=== PATIENT | female | born 1965 | race Caucasian/White ===

== ENCOUNTER 2023-01-18 05:52 | Day surgery (SDC) | payer BC ==
[2023-01-18 06:37] VITALS: RESP 16
[2023-01-18] MEDS ORDERED: Lactated Ringers 1,000 ML IV ONE (06:42)
[2023-01-18] MEDS ORDERED: Lactated Ringers 1,000 ML IV SCH (07:00)
[2023-01-18] MEDS ORDERED: DIPRIVAN 200 MG/20 ML IV ONE (07:51)
[2023-01-18] MEDS ORDERED: Xylocaine-Mpf 2% 5 Ml Vial ONE (07:56)
[2023-01-18] MEDS ORDERED: Versed 2 MG/2 ML Injection ONE (07:59)
--- NOTE | 2023-01-18 08:41 | OP ---
SURGERY DATE/TIME: 01/18/2023 0756 PREOPERATIVE DIAGNOSIS: Screening exam. POSTOPERATIVE DIAGNOSIS: Normal colon. PROCEDURE: Colonoscopy. SURGEON: Dr. Gil. ANESTHESIA: MAC. Medications given by anesthesia department. HISTORY: The patient is a 57-year-old white female presenting now for screening colonoscopy. She reports that were two grandparents with colon cancer in the family. The patient was felt the need to have endoscopic evaluation. She was appraised of the risks of the procedure including the risk of perforation, phlebitis, untoward reaction to medication, bleeding and missed lesions. The patient verbalized her understanding and desired to have the procedure performed. DESCRIPTION OF PROCEDURE: The patient was given the medications by the anesthesia department. She had continuous pulse oximetry, ECG monitoring and intermittent blood pressure monitoring and tidal CO2 monitoring during the examination. She was placed in the left lateral decubitus position. A digital rectal examination was performed and revealed normal anal sphincter tone and no masses. The flexible Olympus pediatric colonoscope was used to intubate the rectum. A view of the colon was developed sequentially to the cecum. Upon insertion and withdrawal, including a retroflex view in the rectum, no mucosal lesions were encountered. The scope was removed from the patient who tolerated the procedure well and was sent back to OP recovery in good condition. The prep was noted to be fair. Fairly large amounts of liquid stool was present.
[2023-01-18 08:54] VITALS: TEMP 98
[2023-01-18 09:14] VITALS: BP 162/83; PULSE 77; O2SAT 98
== END 2023-01-18 09:24 | disposition home or self-care (01) ==
LOC: SDC 05:52 → EDSTATUS 10:24
PROVIDERS: ATTEND Family Medicine
DX: Z12.11 Encounter for screening for malignant neoplasm of colon (principal); E11.9 Type 2 diabetes mellitus without complications
CPT/HCPCS: 82947; J2250; J2704

== ENCOUNTER 2023-02-28 01:49 | Emergency (ER) | payer BC ==
[2023-02-28 01:58] VITALS: TEMP 96
[2023-02-28] MEDS ORDERED: Sodium Chloride 0.9% 1000 ML 1,000 ML IV SCH (02:30)
[2023-02-28] MEDS ORDERED: Sodium Chloride 0.9% 1000 ML 1,000 ML ONE (02:34)
--- NOTE | 2023-02-28 02:42 | ERPHSYRPT ---
- History of Present Illness Historian: patient, family Exam Limitations: no limitations Patient Subjective Stated Complaint: chest tightness/dizziness while at work Triage Nursing Assessment: pt ambulated into ER without diff, nephew is with pt. Pt alert and oriented x4, pleasant and cooperative. 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 Pt's arms were up at shoulder height to perform this task. Pt became a little dizzy/fuzzy vision and then had some chest tightness and shortness of breath. Pt denies any chest pain or sob at this time. Pt denies any dizziness or visual trouble at this time. Lungs clear, heart tones reg, abd soft with active bs x4 quad, nontender. Physician History: pt reports episode of light headedness/ blacking out of vision and then chest tightness. SHe is having a cardio workup now. independent source for Hx was in view of potential altered mental status, but appears clear now no fever, no abd pain, some sobreath. normal neuro exam, visual marti and EOM full PERRL, fundi benign. no rash. Timing/Duration: today Activities at Onset: other Quality: fullness, pressure, tightness Location: substernal Chest Pain Radiation: no radiation Severity of Pain-Max: moderate Severity of Pain-Current: moderate Modifying Factors: Improves With: nothing Associated Symptoms: dizziness Prior Chest Pain/Cardiac Workup: no prior chest pain, recently seen/treated Nitro Today/Relief: 0.4 mg x 1, provided by ED Aspirin Treatment Today: 81 mg x 4, provided by ED Allergies/Adverse Reactions: No Known Drug Allergies Allergy (Verified 02/28/23 02:10) Home Medications: Empagliflozin [Jardiance] 25 mg PO DAILY 01/14/23 [History] Ezetimibe 10 mg [Zetia 10 MG] 1 tab PO DAILY 01/14/23 [History] Glimepiride 2 mg [Amaryl 2 MG] 1 tab PO DAILY 01/14/23 [History] Metformin HCl 500 mg [Glucophage 500 MG] 2 tab PO BID 01/14/23 [History] Potassium Chloride 1 tab PO DAILY 01/14/23 [History] Lisinopril 10 mg [Zestril 10 MG] 1 tab PO DAILY 02/28/23 [History] Hx Tetanus, Diphtheria Vaccination/Date Given: (unknown) Hx Influenza Vaccination/Date Given: No Hx Pneumococcal Vaccination/Date Given: No Immunizations Up to Date: No Travel Risk - International Travel Have you traveled outside of the country in past 3 weeks: No - Coronavirus Screening Are you exhibiting any of the following symptoms?: No Close contact with a COVID-19 positive Pt in past 14-21 Days: No - Vaccine Status Have you recieved a Covid-19 vaccination: Yes Support Manager: Moderna - Vaccination Dates Date of 2cond Vaccination (if applicable): . - Review of Systems Constitutional: No Fever, No Chills Eyes: No Symptoms Ears, Nose, & Throat: No Symptoms Respiratory: No Cough, No Dyspnea Cardiac: Chest Pain, No Edema, No Syncope Abdominal/Gastrointestinal: No Abdominal Pain, No Nausea, No Vomiting, No Diarrhea Genitourinary Symptoms: No Dysuria Musculoskeletal: No Back Pain, No Neck Pain Skin: No Rash Neurological: No Dizziness, No Focal Weakness, No Sensory Changes Psychological: No Symptoms Endocrine: No Symptoms Hematologic/Lymphatic: No Symptoms Immunological/Allergic: No Symptoms All Other Systems: Reviewed and Negative - Past Medical History Pertinent Past Medical History: Yes Neurological History: Peripheral Neuropathy ENT History: No Pertinent History Cardiac History: Angina, Hypertension Respiratory History: No Pertinent History Endocrine Medical History: Diabetes Type II Musculoskeletal History: No Pertinent History GI Medical History: No Pertinent History History: No Pertinent History Psycho-Social History: No Pertinent History Female Reproductive Disorders: No Pertinent History Other Medical History: PATIENT HAS A HX OF COVID IN JUL 2021. FAMILY HX OF BLADDER CANCER AND SIGNIFICANT FAMILY OF COLON CANCER. DIABETIC WOUND R LEG AND R FOOT BEING ACTIVELY TREATED AT [facility]. - Past Surgical History Past Surgical History: Yes Neuro Surgical History: No Pertinent History Cardiac: No Pertinent History Respiratory: No Pertinent History Gastrointestinal: No Pertinent History Genitourinary: No Pertinent History Musculoskeletal: No Pertinent History Female Surgical History: Dilation & Curettage Other Surgical History: 2 colonscopy - Social History Smoking Status: Never smoker Exposure to second hand smoke: No Drug Use: none Patient Lives Alone: Yes - Nursing Vital Signs Nursing Vital Signs: Initial Vital Signs Temperature 96.0 F 02/28/23 01:51 Pulse Rate 76 02/28/23 01:51 Respiratory Rate 14 02/28/23 01:51 Blood Pressure 124/76 02/28/23 01:51 O2 Sat by Pulse Oximetry 100 02/28/23 01:51 Pain Scale Pain Intensity 0 - Physical Exam General Appearance: no apparent distress, alert Eye Exam: PERRL/EOMI, eyes nml inspection Ears, Nose, Throat Exam: normal ENT inspection, moist mucous membranes Neck Exam: normal inspection, non-tender, supple, full range of motion Respiratory Exam: normal breath sounds, lungs clear, No respiratory distress Cardiovascular Exam: regular rate/rhythm, normal heart sounds Gastrointestinal/Abdomen Exam: soft, No tenderness, No mass Pelvic Exam: deferred Rectal Exam: deferred Back Exam: normal inspection, No CVA tenderness, No vertebral tenderness Extremity Exam: normal inspection, normal range of motion Neurologic Exam: alert, oriented x 3, cooperative, normal mood/affect, sensation nml, No motor deficits Skin Exam: normal color, warm, dry SpO2 Interpretation: normal SpO2: 100 O2 Delivery: Room Air - Course Nursing assessment & vital signs reviewed: Yes EKG Interpreted by Me: Sinus Rhythm, NORMAL AXIS, NORMAL INTERVALS, NORMAL QRS, NORMAL ST-T - Radiology Exams Chest X-ray Interpretation: Reviewed by me, Other (calcified granulomata) Ordered Tests: Active Orders 24 hr Category Date Time Status Mba Intern STAT Care 02/28/23 02:31 Active EKG-ER Only STAT Care 02/28/23 02:52 Active IV Insertion STAT Care 02/28/23 02:30 Active Pulse Oximetry (ED) STAT Care 02/28/23 02:30 Active CHEST 1 VIEW (PORTABLE) Stat Exams 02/28/23 02:32 Taken CBC W DIFF Stat Lab 02/28/23 02:02 Completed CK-Creatinine Phosphokinase Stat Lab 02/28/23 02:02 Completed CMP Stat Lab 02/28/23 02:02 Completed D-DIMER QUANTITATIVE Stat Lab 02/28/23 02:02 Completed LIPASE Stat Lab 02/28/23 02:02 Completed Lactic Acid Stat Lab 02/28/23 02:30 Completed NT PRO BNPII Stat Lab 02/28/23 02:02 Completed TROPONIN Q4H Lab 02/28/23 02:02 Completed TROPONIN Q4H Lab 02/28/23 06:45 Ordered TROPONIN Q4H Lab 02/28/23 10:45 Ordered Medication Summary Generic Name Dose Route Start Last Admin Trade Name Freq PRN Reason Stop Dose Admin Sodium Chloride 1,000 mls @ 100 mls/hr 02/28/23 02:30 02/28/23 02:35 Sodium Chloride 0.9% 1000 Ml IV 03/30/23 02:29 100 mls/hr .Q10H RAFAEL Administration Discontinued Medications Generic Name Dose Route Start Last Admin Trade Name Sana PRN Reason Stop Dose Admin Aspirin 324 mg 02/28/23 02:48 02/28/23 02:55 Aspirin 81 Mg Tab.Chew PO 02/28/23 02:49 324 mg STAT ONE Administration Aspirin Confirm 02/28/23 02:54 Aspirin 81 Mg Tab.Chew Administered 02/28/23 02:55 Dose 324 mg .ROUTE .STK-MED ONE Nitroglycerin 0.4 mg 02/28/23 02:48 02/28/23 03:06 Nitroglycerin 0.4 Mg (Ed) 0.4 Mg Tab.Subl SL 02/28/23 02:49 Not Given STAT ONE Lab/Rad Data: Laboratory Result Diagrams 02/28/23 02:02 02/28/23 02:02 Laboratory Results 02/28/23 02/28/23 02/28/23 Range/Units 02:30 02:02 02:02 WBC (4.0-10.5) x10^3/uL RBC (4.1-5.4) x10^6/uL Hgb (12.0-16.0) g/dL Hct (35-47) % MCV (78-100) fL MCH (26-32) pg MCHC (32-36) g/dL RDW (11.5-14.0) % Plt Count (150-450) x10^3/uL MPV (7.5-11.0) fL Gran % (36.0-66.0) % Immature Gran % (Auto) (0.00-0.4) % Nucleat RBC Rel Count (0.00-0.1) % Eos # (Auto) (0-0.5) x10^3/uL Immature Gran # (Auto) (0.00-0.03) x10^3u/L Absolute Lymphs (auto) (1.0-4.6) x10^3/uL Absolute Monos (auto) (0.0-1.3) x10^3/uL Absolute Nucleated RBC (0.00-0.01) x10^3u/L Lymphocytes % (24.0-44.0) % Monocytes % (0.0-12.0) % Eosinophils % (0.00-5.0) % Basophils % (0.0-0.4) % Absolute Granulocytes (1.4-6.9) x10^3/uL Basophils # (0-0.4) x10^3/uL D-Dimer (0.0-0.50) mg/L Sodium (137-145) mmol/L Potassium (3.5-5.1) mmol/L Chloride (98-107) mmol/L Carbon Dioxide (22-30) mmol/L Anion Gap (5-15) MEQ/L BUN (7-17) mg/dL Creatinine (0.52-1.04) mg/dL Estimated GFR ML/MIN Glucose (74-106) mg/dL Lactic Acid 1.9 (0.4-2.0) Calcium (8.4-10.2) mg/dL Total Bilirubin (0.2-1.3) mg/dL AST (14-36) U/L ALT (0-35) U/L Alkaline Phosphatase (38-126) U/L Creatine Kinase (30-135) U/L Troponin I < 0.012 (0.000-0.034) ng/mL NT-Pro-B Natriuret Pep 196 (<300) pg/mL Serum Total Protein (6.3-8.2) g/dL Albumin (3.5-5.0) g/dL Lipase (23-300) U/L 02/28/23 02/28/23 02/28/23 Range/Units 02:02 02:02 02:02 WBC 6.2 (4.0-10.5) x10^3/uL RBC 4.65 (4.1-5.4) x10^6/uL Hgb 13.5 (12.0-16.0) g/dL Hct 40.9 (35-47) % MCV 88.0 (78-100) fL MCH 29.0 (26-32) pg MCHC 33.0 (32-36) g/dL RDW 14.3 H (11.5-14.0) % Plt Count 279 (150-450) x10^3/uL MPV 9.4 (7.5-11.0) fL Gran % 61.4 (36.0-66.0) % Immature Gran % (Auto) 0.3 (0.00-0.4) % Nucleat RBC Rel Count 0.0 (0.00-0.1) % Eos # (Auto) 0.22 (0-0.5) x10^3/uL Immature Gran # (Auto) 0.02 (0.00-0.03) x10^3u/L Absolute Lymphs (auto) 1.70 (1.0-4.6) x10^3/uL Absolute Monos (auto) 0.43 (0.0-1.3) x10^3/uL Absolute Nucleated RBC 0.00 (0.00-0.01) x10^3u/L Lymphocytes % 27.4 (24.0-44.0) % Monocytes % 6.9 (0.0-12.0) % Eosinophils % 3.5 (0.00-5.0) % Basophils % 0.5 (0.0-0.4) % Absolute Granulocytes 3.81 (1.4-6.9) x10^3/uL Basophils # 0.03 (0-0.4) x10^3/uL D-Dimer 1.07 H* (0.0-0.50) mg/L Sodium 139 (137-145) mmol/L Potassium 4.6 (3.5-5.1) mmol/L Chloride 103 (98-107) mmol/L Carbon Dioxide 24 (22-30) mmol/L Anion Gap 16.2 H (5-15) MEQ/L BUN 32 H (7-17) mg/dL Creatinine 1.19 H (0.52-1.04) mg/dL Estimated GFR 49.3 ML/MIN Glucose 84 (74-106) mg/dL Lactic Acid (0.4-2.0) Calcium 9.7 (8.4-10.2) mg/dL Total Bilirubin 0.70 (0.2-1.3) mg/dL AST 33 (14-36) U/L ALT 24 (0-35) U/L Alkaline Phosphatase 69 (38-126) U/L Creatine Kinase 33 (30-135) U/L Troponin I (0.000-0.034) ng/mL NT-Pro-B Natriuret Pep (<300) pg/mL Serum Total Protein 8.6 H (6.3-8.2) g/dL Albumin 4.6 (3.5-5.0) g/dL Lipase 800 H (23-300) U/L - Progress Progress: improved, re-examined Air Movement: good Progress Note: 02/28/23 05:32 discussed with pt and she does not wish to have the CT risk with the kidneys and I agree it is below the GFR normally allowing that. SHe and understand the risk that there still could be a PE undetected but are comfortable with that risk and cardaic rsk including . she is advised that even though symptoms have resolved that she still may have risk for a sudden cardiac or vascular event as we have not ruled these out yet and she needs the furhter workup. including for the elevated lipase although she has no abd pain or vomiting but may have chronic panc inflammation. SHe and choose to followup with her traffic director and PMD as outpt and complete w/u and has the capacity to make that choice. 02/28/23 05:41 02/28/23 05:43 Blood Culture(s) Obtained: No Antibiotics given: No Counseled pt/family regarding: lab results, diagnosis, need for follow-up, rad results Medical Desision Making - Independent Historian Additional History obtained from: Spouse - Diagnostic Testing Diagnostic test were ordered, analyzed, and reviewed by me: Yes Radiological Interpretation: Reviewed by me - Risk of complications The pt has a high risk of morbidity or mortality based on: Decision regarding hospitilization or escalation of hosp level of care - Departure Departure Disposition: Home Clinical Impression: chest pain resolved, Elevated lipase Condition: Good Critical Care Time: No Referrals: ANTHONY WALTON MD [Primary Care Provider] - Follow up/PCP as directed Instructions: Chest Pain (DC), Pancreatitis (DC) Additional Instructions: see your DrBrandi for the pancrease workup and the elevated lipase. continue with your traffic director. ALthough the initial cardiac tests were negative there is still cardiac workup to complete with your traffic director and there may be a risk for other undetected conditions such as a risk for blood clots. there is an indication of the lab of pancrease inflammation even though you have no symptoms. Return meantime if any concerns or symptoms return.
[2023-02-28] MEDS ORDERED: Nitrostat 0.4 MG (ED) SL ONE (02:48)
[2023-02-28] MEDS ORDERED: BABY ASPIRIN 81 MG CHEW PO ONE (02:48)
[2023-02-28] MEDS ORDERED: BABY ASPIRIN 81 MG CHEW ONE (02:54)
[2023-02-28 03:06] LABS: Absolute Neutrophil Ct (ANC) 3.81 x10^3/uL (1.4-6.9); BASOPHIL % 0.5 % (0.0-0.4); Basophil (Absolute #) 0.03 x10^3/uL (0-0.4); Eosinophil % 3.5 % (0.00-5.0); Eosinophil (Absolute #) 0.22 x10^3/uL (0-0.5); Hematocrit 40.9 % (35-47); Hemoglobin 13.5 g/dL (12.0-16.0); IMMATURE GRAN # 0.02 x10^3u/L (0.00-0.03); IMMATURE GRAN % 0.3 % (0.00-0.4); Lymphocytes % 27.4 % (24.0-44.0); Mean Platelet Volume 9.4 fL (7.5-11.0); Monocyte (Absolute #) 0.43 x10^3/uL (0.0-1.3); Monocytes % 6.9 % (0.0-12.0); Neutrophil % 61.4 % (36.0-66.0); Platelet Count 279 x10^3/uL (150-450); Red Blood Count 4.65 x10^6/uL (4.1-5.4); Red Cell Distribution Width 14.3 % (11.5-14.0); White Blood Count 6.2 x10^3/uL (4.0-10.5)
[2023-02-28 04:06] LABS: ALBUMIN 4.6 g/dL (3.5-5.0); ANION GAP 16.2 MEQ/L (5-15); BILIRUBIN,TOTAL 0.7 mg/dL (0.2-1.3); Calcium 9.7 mg/dL (8.4-10.2); Creatinine 1 1.19 mg/dL (0.52-1.04); EST GLOMERULAR FILTRATION RATE 49.3 ML/MIN; Potassium 4.6 mmol/L (3.5-5.1); Total Protein 8.6 g/dL (6.3-8.2)
[2023-02-28 06:05] VITALS: BP 136/83; PULSE 78; RESP 18; O2SAT 97
--- NOTE | 2023-02-28 07:22 | XRAY ---
Indication: Chest pain. Comparison: None Portable chest demonstrates normal heart and lungs. Bony thorax intact with osteopenia and mild degenerative changes.
== END 2023-02-28 06:05 | disposition home or self-care (01) ==
LOC: ED 01:49
DX: R07.9 Chest pain, unspecified (principal); R74.8 Abnormal levels of other serum enzymes; R42 Dizziness and giddiness; I10 Essential (primary) hypertension; E11.42 Type 2 diabetes mellitus with diabetic polyneuropathy; E11.621 Type 2 diabetes mellitus with foot ulcer; L97.519 Non-pressure chronic ulcer of other part of right foot with unspecified severity; Z79.84 Long term (current) use of oral hypoglycemic drugs; Z79.899 Other long term (current) drug therapy; Z86.16 Personal history of COVID-19
CPT/HCPCS: 36000; 36415; 71045; 80053; 82550; 83605; 83690; 83880; 84484; 85025; 85379; 93005; 93041; 94760; 99284; A9270-GY

== ENCOUNTER 2023-04-04 15:12 | Observation (INO) | payer MEDICAID ==
--- NOTE | 2023-04-04 15:42 | ERPHSYRPT ---
- History of Present Illness Time Seen by Provider: 04/04/23 15:21 Historian: patient Exam Limitations: no limitations Physician History: 57-year-old female with history of hypertension, hyperlipidemia, diabetes mellitus presented in the ER with chief complaint of right lower quadrant pain dull aching to sharp mild to moderate intensity, more with palpation and ambulat ion. This has been going on for the last 4 to 5 days with progressive worsening. Denies associated nausea vomiting, urinary complaints. No diarrhea or constipation reported. Patient is concerned about her having acute appendicitis. Denies any swelling/hernia. On exam patient has mild tenderness in the right flank/right lower quadrant. No guarding or rebound tenderness. Negative CVA tenderness. She is offered pain medication which she declined. Will obtain acute abdomen work-up including CT abdomen pelvis. Allergies/Adverse Reactions: No Known Drug Allergies Allergy (Verified 04/04/23 15:29) Home Medications: Empagliflozin [Jardiance] 25 mg PO DAILY 01/14/23 [History] Ezetimibe 10 mg [Zetia 10 MG] 1 tab PO DAILY 01/14/23 [History] Glimepiride 2 mg [Amaryl 2 MG] 1 tab PO DAILY 01/14/23 [History] Metformin HCl 500 mg [Glucophage 500 MG] 2 tab PO BID 01/14/23 [History] Potassium Chloride 1 tab PO DAILY 01/14/23 [History] Lisinopril 10 mg [Zestril 10 MG] 1 tab PO DAILY 02/28/23 [History] Hx Tetanus, Diphtheria Vaccination/Date Given: (unknown) Hx Influenza Vaccination/Date Given: No Hx Pneumococcal Vaccination/Date Given: No Travel Risk - Vaccine Status Have you recieved a Covid-19 vaccination: Yes Pouncing Lathe Operator: Moderna - Vaccination Dates Date of 2cond Vaccination (if applicable): . - Review of Systems Constitutional: No Symptoms Ears, Nose, & Throat: No Symptoms Respiratory: No Symptoms Cardiac: No Symptoms Abdominal/Gastrointestinal: Abdominal Pain Genitourinary Symptoms: No Symptoms Musculoskeletal: No Symptoms Skin: No Symptoms Neurological: No Symptoms Psychological: No Symptoms Hematologic/Lymphatic: No Symptoms - Past Medical History Pertinent Past Medical History: Yes Neurological History: Peripheral Neuropathy ENT History: No Pertinent History Cardiac History: Angina, Hypertension Respiratory History: No Pertinent History Endocrine Medical History: Diabetes Type II Musculoskeletal History: No Pertinent History GI Medical History: No Pertinent History History: No Pertinent History Psycho-Social History: No Pertinent History Female Reproductive Disorders: No Pertinent History Other Medical History: PATIENT HAS A HX OF COVID IN JUL 2021. FAMILY HX OF BLAD RIAZ CANCER AND SIGNIFICANT FAMILY OF COLON CANCER. DIABETIC WOUND R LEG AND R FOOT BEING ACTIVELY TREATED AT [facility]. - Past Surgical History Past Surgical History: Yes Neuro Surgical History: No Pertinent History Cardiac: No Pertinent History Respiratory: No Pertinent History Gastrointestinal: No Pertinent History Genitourinary: No Pertinent History Musculoskeletal: No Pertinent History Female Surgical History: Dilation & Curettage Other Surgical History: 2 colonscopy - Social History Smoking Status: Never smoker Exposure to second hand smoke: No Drug Use: none Patient Lives Alone: Yes - Nursing Vital Signs Nursing Vital Signs: Initial Vital Signs Temperature 97 F 04/04/23 15:12 Pulse Rate 90 04/04/23 15:12 Respiratory Rate 16 04/04/23 15:12 Blood Pressure 105/75 04/04/23 15:12 O2 Sat by Pulse Oximetry 100 04/04/23 15:12 Pain Scale Pain Intensity 2 - Physical Exam General Appearance: no apparent distress, alert Eye Exam: PERRL/EOMI Ears, Nose, Throat Exam: normal ENT inspection Neck Exam: normal inspection, supple, full range of motion Respiratory Exam: normal breath sounds, lungs clear Cardiovascular Exam: regular rate/rhythm, normal heart sounds Gastrointestinal/Abdomen Exam: soft, normal bowel sounds, tenderness (Right lower quadrant/flank), No guarding Back Exam: normal inspection, normal range of motion Extremity Exam: normal range of motion Neurologic Exam: alert, oriented x 3, cooperative, funeral service manager II-XII nml as tested Skin Exam: normal color SpO2 Interpretation: normal SpO2: 96 O2 Delivery: Room Air Ordered Tests: Active Orders 24 hr Category Date Time Status ABDOMEN AND PELVIS W/0 CONTRAS [CT] Stat Exams 04/04/23 15:40 Completed CBC W DIFF Stat Lab 04/04/23 16:15 Completed CMP Stat Lab 04/04/23 16:15 Completed CULTURE,URINE Stat Lab 04/04/23 16:49 Received LIPASE Stat Lab 04/04/23 16:15 Completed UA W/RFX UR CULTURE Stat Lab 04/04/23 16:49 Completed Medication Summary Generic Name Dose Route Start Last Admin Trade Name Sana PRN Reason Stop Dose Admin Sodium Chloride 1,000 mls @ 999 mls/hr 04/04/23 17:49 04/04/23 17:55 Sodium Chloride 0.9% 1000 Ml IV 04/04/23 18:49 999 mls/hr .Q1H1M STA Administration Discontinued Medications Generic Name Dose Route Start Last Admin Trade Name Sana PRN Reason Stop Dose Admin Sodium Chloride Confirm 04/04/23 17:54 Sodium Chloride 0.9% 1000 Ml Administered 04/04/23 17:55 Dose 1,000 mls @ ud .ROUTE .K-MED ONE Lab/Rad Data: Laboratory Result Diagrams 04/04/23 16:15 04/04/23 16:15 Laboratory Results 04/04/23 04/04/23 04/04/23 Range/Units 16:49 16:15 16:15 WBC 5.5 (4.0-10.5) x10^3/uL RBC 4.49 (4.1-5.4) x10^6/uL Hgb 13.5 (12.0-16.0) g/dL Hct 39.2 (35-47) % MCV 87.3 (78-100) fL MCH 30.1 (26-32) pg MCHC 34.4 (32-36) g/dL RDW 13.9 (11.5-14.0) % Plt Count 192 (150-450) x10^3/uL MPV 8.7 (7.5-11.0) fL Gran % 57.4 (36.0-66.0) % Immature Gran % (Auto) 0.4 (0.00-0.4) % Nucleat RBC Rel Count 0.0 (0.00-0.1) % Eos # (Auto) 0.18 (0-0.5) x10^3/uL Immature Gran # (Auto) 0.02 (0.00-0.03) x10^3u/L Absolute Lymphs (auto) 1.71 (1.0-4.6) x10^3/uL Absolute Monos (auto) 0.39 (0.0-1.3) x10^3/uL Absolute Nucleated RBC 0.00 (0.00-0.01) x10^3u/L Lymphocytes % 31.3 (24.0-44.0) % Monocytes % 7.1 (0.0-12.0) % Eosinophils % 3.3 (0.00-5.0) % Basophils % 0.5 (0.0-0.4) % Absolute Granulocytes 3.13 (1.4-6.9) x10^3/uL Basophils # 0.03 (0-0.4) x10^3/uL Sodium 135 L (137-145) mmol/L Potassium 4.4 (3.5-5.1) mmol/L Chloride 102 (98-107) mmol/L Carbon Dioxide 23 (22-30) mmol/L Anion Gap 14.4 (5-15) MEQ/L BUN 19 H (7-17) mg/dL Creatinine 0.83 (0.52-1.04) mg/dL Estimated GFR > 60.0 ML/MIN Glucose 198 H (74-106) mg/dL Calcium 9.3 (8.4-10.2) mg/dL Total Bilirubin 0.60 (0.2-1.3) mg/dL AST 39 H (14-36) U/L ALT 27 (0-35) U/L Alkaline Phosphatase 64 (38-126) U/L Serum Total Protein 7.7 (6.3-8.2) g/dL Albumin 4.2 (3.5-5.0) g/dL Lipase 1531 H (23-300) U/L Urine Color Yellow (Yellow) Urine Appearance Clear (Clear) Urine pH 5.0 (4.6-8.0) Ur Specific [place] >=1.030 A (1.005-1.030) Urine Protein 100 A (Negative) Urine Glucose (UA) >=1000 A (Negative) mg/dL Urine Ketones Negative (Negative) Urine Blood Trace (Negative) Urine Nitrite Negative (Negative) Urine Bilirubin Negative (Negative) Urine Urobilinogen 0.2 (0.2) mg/dL Ur Leukocyte Esterase Negative (Negative) U Hyaline Cast (Auto) NONE SEEN (0-2) /LPF Urine Microscopic RBC 0-2 (0-5) /HPF Urine Microscopic WBC 0-2 (0-5) /HPF Ur Epithelial Cells None Seen (None Seen) /HPF Urine Bacteria None Seen (None Seen) /HPF Urine Culture Reflexed YES (NO) - Progress Progress: unchanged Progress Note: 04/04/23 15:42 57-year-old female with history of hypertension, hyperlipidemia, diabetes mellitus presented in the ER with chief complaint of right lower quadrant pain dull aching to sharp mild to moderate intensity, more with palpation and ambulation. This has been going on for the last 4 to 5 days with progressive worsening. Denies associated nausea vomiting, urinary complaints. No diarrhea or constipation reported. Patient is concerned about her having acute appendicitis. Denies any swelling/hernia. On exam patient has mild tenderness in the right flank/right lower quadrant. No guarding or rebound tenderness. Negative CVA tenderness. She is offered pain medication which she declined. Will obtain acute abdomen work-up including CT abdomen pelvis. Patient has normal white count, fairly unremarkable chemistries except for lipase of 1531. Patient has no obvious tenderness in the right upper quadrant/epigastric area. Patient does have gallstones with no signs of acute cholecystitis on the CT. She is started on fluids and made n.p.o. Discussed with , Reviewed his tory, work-up and agreed with admission. I have discussed the results of work- up with patient and plan of admission which she understand and agrees with it. Will see patient in: hospital (observation) Counseled pt/family regarding: lab results, diagnosis, need for follow-up, rad results Medical Desision Making - Diagnostic Testing Diagnostic test were ordered, analyzed, and reviewed by me: Yes Radiological Interpretation: Reviewed by me - Risk of complications The pt has a high risk of morbidity or mortality based on: Decision regarding hospitilization or escalation of hosp level of care - Departure Departure Disposition: Observation Clinical Impression: Acute pancreatitis Condition: Stable Critical Care Time: No Referrals: [facility] [NON-STAFF PHY W/O PRIVILEGES] - Follow up/PCP as directed
[2023-04-04 16:22] LABS: Absolute Neutrophil Ct (ANC) 3.13 x10^3/uL (1.4-6.9); BASOPHIL % 0.5 % (0.0-0.4); Basophil (Absolute #) 0.03 x10^3/uL (0-0.4); Eosinophil % 3.3 % (0.00-5.0); Eosinophil (Absolute #) 0.18 x10^3/uL (0-0.5); Hematocrit 39.2 % (35-47); Hemoglobin 13.5 g/dL (12.0-16.0); IMMATURE GRAN # 0.02 x10^3u/L (0.00-0.03); IMMATURE GRAN % 0.4 % (0.00-0.4); Lymphocyte (Absolute #) 1.71 x10^3/uL (1.0-4.6); Lymphocytes % 31.3 % (24.0-44.0); Mean Cell Volume 87.3 fL (78-100); Mean Corpuscular Hemoglobin 30.1 pg (26-32); Mean Corpuscular Hgb Concent. 34.4 g/dL (32-36); Mean Platelet Volume 8.7 fL (7.5-11.0); Monocyte (Absolute #) 0.39 x10^3/uL (0.0-1.3); Monocytes % 7.1 % (0.0-12.0); Neutrophil % 57.4 % (36.0-66.0); Platelet Count 192 x10^3/uL (150-450); Red Blood Count 4.49 x10^6/uL (4.1-5.4); Red Cell Distribution Width 13.9 % (11.5-14.0); White Blood Count 5.5 x10^3/uL (4.0-10.5)
--- NOTE | 2023-04-04 16:37 | XRAY ---
Indication: Right lower quadrant pain. Multiple contiguous axial images obtained through the abdomen and pelvis without contrast. Comparison: March 10, 2023 Lung bases remain clear. Heart not enlarged. Stomach is now moderately distended with food/fluid. Noncontrasted stomach and bowel loops appear nonobstructed again with normal appearing appendix. Worsening moderate diffuse scatter colonic fecal debris throughout. Stable tiny gallstones/gravel. Remaining liver, gallbladder, pancreas, spleen, adrenal glands, kidneys, ureters, bladder, and uterus are unremarkable for noncontrast exam. Stable mild aortoiliac calcification without AAA. Osseous structures intact again with minimal generative changes throughout the spine and both hips. Impression: 1. Worsening diffuse fecal stasis. 2. Stable chronic findings including gallstones/gravel, arteriosclerotic disease, and chronic bony findings. 3. Remaining CT abdomen/pelvis without contrast exam continues to be negative.
[2023-04-04 16:45] LABS: ALBUMIN 4.2 g/dL (3.5-5.0); ALKALINE PHOSPHATASE 64 U/L (38-126); ANION GAP 14.4 MEQ/L (5-15); BLOOD UREA NITROGEN 19 mg/dL (7-17); CHLORIDE 102 mmol/L (98-107); Calcium 9.3 mg/dL (8.4-10.2); Carbon Dioxide 23 mmol/L (22-30); Creatinine 1 0.83 mg/dL (0.52-1.04); EST GLOMERULAR FILTRATION RATE > 60.0 ML/MIN; Glucose 198 mg/dL (74-106); LIPASE 1531 U/L (23-300); Potassium 4.4 mmol/L (3.5-5.1); SGOT/AST 39 U/L (14-36); SGPT/ALT 27 U/L (0-35); SODIUM 135 mmol/L (137-145); Total Protein 7.7 g/dL (6.3-8.2)
[2023-04-04 17:06] LABS: Appearance Clear (Clear); Bacteria None Seen /HPF (None Seen); Bilirubin Negative (Negative); Blood Trace (Negative); Epithelial Cells None Seen /HPF (None Seen); Glucose, Urine >=1000 mg/dL (Negative); Hyaline Casts NONE SEEN /LPF (0-2); Ketones Negative (Negative); Leukocyte Esterase Negative (Negative); Nitrite Negative (Negative); Protein,Urine Dip 100 (Negative); RBC 0-2 /HPF (0-5); Specific Gravity >=1.030 (1.005-1.030); Urobilinogen 0.2 mg/dL (0.2); WBC 0-2 /HPF (0-5)
[2023-04-04 17:22] LABS: ADD URINE CULTURE? YES (NO)
[2023-04-04] MEDS ORDERED: Sodium Chloride 0.9% 1000 ML 1,000 ML IV STA (17:49)
[2023-04-04] MEDS ORDERED: Sodium Chloride 0.9% 1000 ML 1,000 ML ONE (17:54)
--- NOTE | 2023-04-04 19:50 | PCM.HP ---
History of Present Illness - Chief Complaint Chief Complaint: Acute pancreatitis Date: 04/04/23 History of Present Illness: is a 57 year old female admitted with abdominal pain. Pain is sharp pain RLQ. Pain at times radiates to back. Pain is worse with moving. Nothing helps the pain. In addition, since September she has had some chronic low aching abdominal pain which she had evaluated but nothing was found. She reports feeling dizzy today and her vision was "spotty". She denies nausea or vomiting. No fever or chills. No diarrhea or constipation. No dysuria or hematuria. PMH includes diabetes type 2, HTN, HLD, and peripheral neuropathy. - Review of Systems Constitutional: No Symptoms, No Fever, No Chills Eyes: No Symptoms Ears, Nose, & Throat: No Symptoms Respiratory: No Symptoms, No Cough, No Short Of Breath Cardiac: No Symptoms, No Chest Pain, No Edema, No Orthopnea, No PND Abdominal/Gastrointestinal: Abdominal Pain, No Nausea, No Vomiting, No Diarrhea Genitourinary Symptoms: No Symptoms, No Dysuria, No Frequency, No Hematuria Musculoskeletal: No Symptoms Skin: No Symptoms Neurological: No Symptoms Psychological: No Symptoms Endocrine: No Symptoms Hematologic/Lymphatic: No Symptoms Immunological/Allergic: No Symptoms Medications & Allergies Home Medications: Home Medication List Empagliflozin [Jardiance] 25 mg PO DAILY 01/14/23 [History Confirmed 04/04/23] Ezetimibe 10 mg [Zetia 10 MG] 1 tab PO DAILY 01/14/23 [History Confirmed 04/04/23] Glimepiride 2 mg [Amaryl 2 MG] 1 tab PO DAILY 01/14/23 [History Confirmed 04/04/23] Metformin HCl 500 mg [Glucophage 500 MG] 2 tab PO BID 01/14/23 [History Confirmed 04/04/23] Potassium Chloride 1 tab PO DAILY 01/14/23 [History Confirmed 04/04/23] Lisinopril 10 mg [Zestril 10 MG] 1 tab PO DAILY 02/28/23 [History Confirmed 04/04/23] Allergies/Adverse Reactions: Allergies Allergy/AdvReac Type Severity Reaction Status Date / Time No Known Drug Allergies Allergy Verified 04/04/23 15:29 - Past Medical History Past Medical History: Yes Neurological History: Peripheral Neuropathy ENT History: No Pertinent History Cardiac History: Angina, Hypertension Respiratory History: No Pertinent History Endocrine Medical History: Diabetes Type II Musculoskelatal History: No Pertinent History GI Medical History: No Pertinent History History: No Pertinent History Pyscho-Social History: No Pertinent History Reproductive Disorders: No Pertinent History Comment: PATIENT HAS A HX OF COVID IN JUL 2021. FAMILY HX OF BLADDER CANCER AND SIGNIFICANT FAMILY OF COLON CANCER. DIABETIC WOUND R LEG AND R FOOT BEING ACTIVELY TREATED AT [facility]. - Female History Are you now?: No - Past Surgical History Past Surgical History: Yes Neuro Surgical History: No Pertinent History Cardiac History: No Pertinent History Respiratory Surgery: No Pertinent History GI Surgical History: No Pertinent History Genitourinary Surgical Hx: No Pertinent History Musculskeletal Surgical Hx: No Pertinent History Female Surgical History: Dilation & Curettage Other Surgical History: 2 colonscopy - Social History Smoking Status: Never smoker Exposure to second hand smoke: No Alcohol: Rarely Drug Use: none - Physical Exam Vital Signs: Vital Signs - 24 hr Temp Pulse Resp BP BP Pulse Ox 04/04/23 18:46 16 04/04/23 18:17 97 F 87 105/75 96 04/04/23 18:06 96 04/04/23 17:30 87 21 147/78 98 04/04/23 17:00 89 18 146/85 98 04/04/23 16:37 90 18 115/56 99 04/04/23 15:30 88 21 105/75 97 04/04/23 15:12 97 F 90 16 105/75 100 General Appearance: mild distress Neurologic Exam: alert, oriented x 3, cooperative, 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 as tested, normal mood/affect Eye Exam: PERRL/EOMI Ears, Nose, Throat Exam: normal ENT inspection Neck Exam: normal inspection Respiratory Exam: normal breath sounds Cardiovascular Exam: regular rate/rhythm, normal heart sounds Gastrointestinal/Abdomen Exam: soft, normal bowel sounds, tenderness, No distention, No mass, No guarding, No hepatomegaly Pelvic Exam: not done Rectal Exam: deferred Back Exam: normal inspection Skin Exam: normal color, warm, dry Lymphatic Exam: No adenopathy Results - Labs Lab/Micro Results: Lab Results-Last 24 Hours 10/16/23 10/16/23 10/16/23 Range/Units 16:15 16:15 16:49 WBC 5.5 (4.0-10.5) x10^3/uL RBC 4.49 (4.1-5.4) x10^6/uL Hgb 13.5 (12.0-16.0) g/dL Hct 39.2 (35-47) % MCV 87.3 (78-100) fL MCH 30.1 (26-32) pg MCHC 34.4 (32-36) g/dL RDW 13.9 (11.5-14.0) % Plt Count 192 (150-450) x10^3/uL MPV 8.7 (7.5-11.0) fL Gran % 57.4 (36.0-66.0) % Immature Gran % (Auto) 0.4 (0.00-0.4) % Nucleat RBC Rel Count 0.0 (0.00-0.1) % Eos # (Auto) 0.18 (0-0.5) x10^3/uL Immature Gran # (Auto) 0.02 (0.00-0.03) x10^3u/L Absolute Lymphs (auto) 1.71 (1.0-4.6) x10^3/uL Absolute Monos (auto) 0.39 (0.0-1.3) x10^3/uL Absolute Nucleated RBC 0.00 (0.00-0.01) x10^3u/L Lymphocytes % 31.3 (24.0-44.0) % Monocytes % 7.1 (0.0-12.0) % Eosinophils % 3.3 (0.00-5.0) % Basophils % 0.5 (0.0-0.4) % Absolute Granulocytes 3.13 (1.4-6.9) x10^3/uL Basophils # 0.03 (0-0.4) x10^3/uL Sodium 135 L (137-145) mmol/L Potassium 4.4 (3.5-5.1) mmol/L Chloride 102 (98-107) mmol/L Carbon Dioxide 23 (22-30) mmol/L Anion Gap 14.4 (5-15) MEQ/L BUN 19 H (7-17) mg/dL Creatinine 0.83 (0.52-1.04) mg/dL Estimated GFR > 60.0 ML/MIN Glucose 198 H (74-106) mg/dL Calcium 9.3 (8.4-10.2) mg/dL Total Bilirubin 0.60 (0.2-1.3) mg/dL AST 39 H (14-36) U/L ALT 27 (0-35) U/L Alkaline Phosphatase 64 (38-126) U/L Serum Total Protein 7.7 (6.3-8.2) g/dL Albumin 4.2 (3.5-5.0) g/dL Lipase 1531 H (23-300) U/L Urine Color Yellow (Yellow) Urine Appearance Clear (Clear) Urine pH 5.0 (4.6-8.0) Ur Specific Palmer >=1.030 A (1.005-1.030) Urine Protein 100 A (Negative) Urine Glucose (UA) >=1000 A (Negative) mg/dL Urine Ketones Negative (Negative) Urine Blood Trace (Negative) Urine Nitrite Negative (Negative) Urine Bilirubin Negative (Negative) Urine Urobilinogen 0.2 (0.2) mg/dL Ur Leukocyte Esterase Negative (Negative) U Hyaline Cast (Auto) NONE SEEN (0-2) /LPF Urine Microscopic RBC 0-2 (0-5) /HPF Urine Microscopic WBC 0-2 (0-5) /HPF Ur Epithelial Cells None Seen (None Seen) /HPF Urine Bacteria None Seen (None Seen) /HPF Urine Culture Reflexed YES (NO) - Radiology Impressions Radiology Exams & Impressions: Radiology Procedures Category Date Time Status ABDOMEN AND PELVIS W/0 CONTRAS [CT] Stat Exams 04/04/23 15:40 Completed Assessment/Plan (1) Acute pancreatitis Current Visit: Yes Status: Acute Qualifiers: Pancreatitis type: biliary Assessment & Plan: Patient has elevated Lipase However, CT does not show changes of pancreatitis Pain is very atypical for pancreatitis However, patient does have cholelithiasis For now will plan bowel rest, IV fluids, and pain control. Recheck lipase in am Will get us of abdomen and HIDA scan Code(s): K85.90 - ACUTE PANCREATITIS WITHOUT NECROSIS OR INFECTION, UNSP (2) Diabetes type 2, controlled Current Visit: Yes Status: Chronic Qualifiers: Diabetes mellitus buttermaker continuous churn insulin use: without halfway use Assessment & Plan: Monitor BS. SS insulin Code(s): E11.9 - TYPE 2 DIABETES MELLITUS WITHOUT COMPLICATIONS (3) Hypertension Current Visit: Yes Status: Chronic Qualifiers: Hypertension type: primary hypertension Qualified Code(s): I10 - Essential (primary) hypertension Assessment & Plan: Continue home meds Code(s): I10 - ESSENTIAL (PRIMARY) HYPERTENSION (4) Hyperlipidemia Current Visit: Yes Status: Chronic Qualifiers: Hyperlipidemia type: pure hypercholesterolemia Qualified Code(s): E78.00 - Pure hypercholesterolemia, unspecified; E78.0 - Pure hypercholesterolemia Assessment & Plan: Continue home meds Code(s): E78.5 - HYPERLIPIDEMIA, UNSPECIFIED (5) Cholelithiasis Current Visit: Yes Status: Chronic Assessment & Plan: Patient has had cholelithiasis for some time If she has cholecystitis, it could be causing pancreatitis Will get us of abdomen and check HIDA scan. Telemedicine Encounter - Telemedicine Encounter Telemedicine Encounter: The entirety of this encounter was performed via Telemedicine" after consent obtained. Discussed with ER provider. Labs and imaging reviewed 70 minutes spent on care of this patient Girma Lopez MD [facility]
[2023-04-04] MEDS ORDERED: TYLENOL 325 MG PO PRN (19:55)
[2023-04-04] MEDS ORDERED: HUMALOG SQ PRN (19:55)
[2023-04-04] MEDS ORDERED: Zofran 4 MG/2 ML VIAL IV PRN (19:55)
[2023-04-04] MEDS ORDERED: PHENERGAN 25 MG PO PRN (19:55)
[2023-04-04] MEDS: Sodium Chloride 0.9% 1000 ML 1,000 ML IV SCH (20:44)
[2023-04-05] MEDS: Sodium Chloride 0.9% 1000 ML 1,000 ML IV SCH ×3 (00:36→16:06)
[2023-04-05 04:29] LABS: Absolute Neutrophil Ct (ANC) 3.01 x10^3/uL (1.4-6.9); BASOPHIL % 0.4 % (0.0-0.4); Basophil (Absolute #) 0.02 x10^3/uL (0-0.4); Eosinophil % 5.2 % (0.00-5.0); Eosinophil (Absolute #) 0.28 x10^3/uL (0-0.5); Hematocrit 36.5 % (35-47); Hemoglobin 12.7 g/dL (12.0-16.0); IMMATURE GRAN # 0.01 x10^3u/L (0.00-0.03); IMMATURE GRAN % 0.2 % (0.00-0.4); Lymphocyte (Absolute #) 1.65 x10^3/uL (1.0-4.6); Lymphocytes % 30.8 % (24.0-44.0); Mean Cell Volume 86.3 fL (78-100); Mean Corpuscular Hgb Concent. 34.8 g/dL (32-36); Mean Platelet Volume 8.6 fL (7.5-11.0); Monocyte (Absolute #) 0.39 x10^3/uL (0.0-1.3); Monocytes % 7.3 % (0.0-12.0); Neutrophil % 56.1 % (36.0-66.0); Platelet Count 158 x10^3/uL (150-450); Red Blood Count 4.23 x10^6/uL (4.1-5.4); Red Cell Distribution Width 13.8 % (11.5-14.0); White Blood Count 5.4 x10^3/uL (4.0-10.5)
[2023-04-05 04:43] LABS: ALBUMIN 3.6 g/dL (3.5-5.0); ALKALINE PHOSPHATASE 65 U/L (38-126); ANION GAP 8.6 MEQ/L (5-15); BLOOD UREA NITROGEN 15 mg/dL (7-17); CHLORIDE 107 mmol/L (98-107); Calcium 8.8 mg/dL (8.4-10.2); Carbon Dioxide 24 mmol/L (22-30); Creatinine 1 0.67 mg/dL (0.52-1.04); EST GLOMERULAR FILTRATION RATE > 60.0 ML/MIN; Glucose 99 mg/dL (74-106); Potassium 3.8 mmol/L (3.5-5.1); SGOT/AST 28 U/L (14-36); SGPT/ALT 24 U/L (0-35); SODIUM 136 mmol/L (137-145)
[2023-04-05 04:57] LABS: Risk Ratio 5.1
--- NOTE | 2023-04-05 05:07 | PCM.NOTE ---
Date and Time: 04/05/23 0501 Subjective Assessment: is a 57 year old female with a pmhx of DM, HTN, HLK, and peripheral neuropathy who presented to ED 04/04/23 with complaints of RLQ abdominal pain with associated dizziness and "spotty vision." Patient reports chronic low aching abdominal pain since September which has been evaluated with negative f indings. Admitted with pancreatitis/cholelithiasis. CT imaging noting worsening diffuse fecal stasis and chronic findings of gallstones/gravel, arteriosclerotic disease, and chronic bony findings. Plan is for further evaluation with US of the abdomen, patient has known GB disease, has had surgery consult in the past. Discussed labwork, lipase trending down, most likely elevated secondary to GB. Endorses improvement in pain, now at 3/10 on numerical scale. Surgery has been consulted. US abd pending. - Review of Systems Constitutional: No Symptoms Eyes: No Symptoms Ears, Nose, & Throat: No Symptoms Respiratory: No Symptoms Cardiac: No Symptoms Abdominal/Gastrointestinal: Abdominal Pain (RLQ) Genitourinary Symptoms: No Symptoms Musculoskeletal: No Symptoms Skin: No Symptoms Neurological: No Symptoms Psychological: No Symptoms Objective Exam General Appearance: no apparent distress Neurologic Exam: alert, oriented x 3, cooperative Skin Exam: normal color Eye Exam: PERRL Ears, Nose, Throat Exam: normal ENT inspection Neck Exam: normal inspection Respiratory Exam: normal breath sounds, lungs clear Cardiovascular Exam: regular rate/rhythm, normal heart sounds Gastrointestinal/Abdomen Exam: soft, normal bowel sounds, tenderness (RLQ) Extremity Exam: normal inspection Back Exam: normal inspection OBJECTIVE DATA Vital Signs: Vital Signs - 24 hr Temp Pulse Resp BP BP Pulse Ox 04/05/23 04:00 96.9 F 80 16 162/79 94 L 04/04/23 23:41 16 04/04/23 22:48 96.6 F 86 16 117/63 96 04/04/23 18:46 16 04/04/23 18:17 97 F 87 105/75 96 04/04/23 18:06 96 04/04/23 17:30 87 21 147/78 98 04/04/23 17:00 89 18 146/85 98 04/04/23 16:37 90 18 115/56 99 04/04/23 15:30 88 21 105/75 97 04/04/23 15:12 97 F 90 16 105/75 100 Pain Assessment - Last Documented Pain Intensity 2 Intake and Output: Intake & Output 04/02/23 04/03/23 04/04/23 04/05/23 11:59 11:59 11:59 11:59 Intake Total 0 Output Total 900 Balance -900 Weight 83.461 kg Lab Results: Lab Results-Last 24 Hours 04/04/23 04/04/23 04/04/23 Range/Units 16:15 16:15 16:49 WBC 5.5 (4.0-10.5) x10^3/uL RBC 4.49 (4.1-5.4) x10^6/uL Hgb 13.5 (12.0-16.0) g/dL Hct 39.2 (35-47) % MCV 87.3 (78-100) fL MCH 30.1 (26-32) pg MCHC 34.4 (32-36) g/dL RDW 13.9 (11.5-14.0) % Plt Count 192 (150-450) x10^3/uL MPV 8.7 (7.5-11.0) fL Gran % 57.4 (36.0-66.0) % Immature Gran % (Auto) 0.4 (0.00-0.4) % Nucleat RBC Rel Count 0.0 (0.00-0.1) % Eos # (Auto) 0.18 (0-0.5) x10^3/uL Immature Gran # (Auto) 0.02 (0.00-0.03) x10^3u/L Absolute Lymphs (auto) 1.71 (1.0-4.6) x10^3/uL Absolute Monos (auto) 0.39 (0.0-1.3) x10^3/uL Absolute Nucleated RBC 0.00 (0.00-0.01) x10^3u/L Lymphocytes % 31.3 (24.0-44.0) % Monocytes % 7.1 (0.0-12.0) % Eosinophils % 3.3 (0.00-5.0) % Basophils % 0.5 (0.0-0.4) % Absolute Granulocytes 3.13 (1.4-6.9) x10^3/uL Basophils # 0.03 (0-0.4) x10^3/uL Sodium 135 L (137-145) mmol/L Potassium 4.4 (3.5-5.1) mmol/L Chloride 102 (98-107) mmol/L Carbon Dioxide 23 (22-30) mmol/L Anion Gap 14.4 (5-15) MEQ/L BUN 19 H (7-17) mg/dL Creatinine 0.83 (0.52-1.04) mg/dL Estimated GFR > 60.0 ML/MIN Glucose 198 H (74-106) mg/dL POC Glucometer (74 to 106) mg/dL Calcium 9.3 (8.4-10.2) mg/dL Total Bilirubin 0.60 (0.2-1.3) mg/dL AST 39 H (14-36) U/L ALT 27 (0-35) U/L Alkaline Phosphatase 64 (38-126) U/L Serum Total Protein 7.7 (6.3-8.2) g/dL Albumin 4.2 (3.5-5.0) g/dL Triglycerides (30-150) mg/dL Cholesterol (50-200) mg/dL LDL Cholesterol (30-100) mg/dL HDL Cholesterol (40-60) mg/dL Heart Disease Risk Ratio Lipase 1531 H (23-300) U/L Urine Color Yellow (Yellow) Urine Appearance Clear (Clear) Urine pH 5.0 (4.6-8.0) Ur Specific Moore >=1.030 A (1.005-1.030) Urine Protein 100 A (Negative) Urine Glucose (UA) >=1000 A (Negative) mg/dL Urine Ketones Negative (Negative) Urine Blood Trace (Negative) Urine Nitrite Negative (Negative) Urine Bilirubin Negative (Negative) Urine Urobilinogen 0.2 (0.2) mg/dL Ur Leukocyte Esterase Negative (Negative) U Hyaline Cast (Auto) NONE SEEN (0-2) /LPF Urine Microscopic RBC 0-2 (0-5) /HPF Urine Microscopic WBC 0-2 (0-5) /HPF Ur Epithelial Cells None Seen (None Seen) /HPF Urine Bacteria None Seen (None Seen) /HPF Urine Culture Reflexed YES (NO) 04/04/23 04/05/23 04/05/23 Range/Units 21:33 04:00 04:18 WBC 5.4 (4.0-10.5) x10^3/uL RBC 4.23 (4.1-5.4) x10^6/uL Hgb 12.7 (12.0-16.0) g/dL Hct 36.5 (35-47) % MCV 86.3 (78-100) fL MCH 30.0 (26-32) pg MCHC 34.8 (32-36) g/dL RDW 13.8 (11.5-14.0) % Plt Count 158 (150-450) x10^3/uL MPV 8.6 (7.5-11.0) fL Gran % 56.1 (36.0-66.0) % Immature Gran % (Auto) 0.2 (0.00-0.4) % Nucleat RBC Rel Count 0.0 (0.00-0.1) % Eos # (Auto) 0.28 (0-0.5) x10^3/uL Immature Gran # (Auto) 0.01 (0.00-0.03) x10^3u/L Absolute Lymphs (auto) 1.65 (1.0-4.6) x10^3/uL Absolute Monos (auto) 0.39 (0.0-1.3) x10^3/uL Absolute Nucleated RBC 0.00 (0.00-0.01) x10^3u/L Lymphocytes % 30.8 (24.0-44.0) % Monocytes % 7.3 (0.0-12.0) % Eosinophils % 5.2 H (0.00-5.0) % Basophils % 0.4 (0.0-0.4) % Absolute Granulocytes 3.01 (1.4-6.9) x10^3/uL Basophils # 0.02 (0-0.4) x10^3/uL Sodium (137-145) mmol/L Potassium (3.5-5.1) mmol/L Chloride (98-107) mmol/L Carbon Dioxide (22-30) mmol/L Anion Gap (5-15) MEQ/L BUN (7-17) mg/dL Creatinine (0.52-1.04) mg/dL Estimated GFR ML/MIN Glucose (74-106) mg/dL POC Glucometer 121 H (74 to 106) mg/dL Calcium (8.4-10.2) mg/dL Total Bilirubin (0.2-1.3) mg/dL AST (14-36) U/L ALT (0-35) U/L Alkaline Phosphatase (38-126) U/L Serum Total Protein (6.3-8.2) g/dL Albumin (3.5-5.0) g/dL Triglycerides 195 H (30-150) mg/dL Cholesterol 155 (50-200) mg/dL LDL Cholesterol 92 (30-100) mg/dL HDL Cholesterol 30 L (40-60) mg/dL Heart Disease Risk Ratio 5.1 Lipase (23-300) U/L Urine Color (Yellow) Urine Appearance (Clear) Urine pH (4.6-8.0) Ur Specific Moore (1.005-1.030) Urine Protein (Negative) Urine Glucose (UA) (Negative) mg/dL Urine Ketones (Negative) Urine Blood (Negative) Urine Nitrite (Negative) Urine Bilirubin (Negative) Urine Urobilinogen (0.2) mg/dL Ur Leukocyte Esterase (Negative) U Hyaline Cast (Auto) (0-2) /LPF Urine Microscopic RBC (0-5) /HPF Urine Microscopic WBC (0-5) /HPF Ur Epithelial Cells (None Seen) /HPF Urine Bacteria (None Seen) /HPF Urine Culture Reflexed (NO) 04/05/23 Range/Units 04:18 WBC (4.0-10.5) x10^3/uL RBC (4.1-5.4) x10^6/uL Hgb (12.0-16.0) g/dL Hct (35-47) % MCV (78-100) fL MCH (26-32) pg MCHC (32-36) g/dL RDW (11.5-14.0) % Plt Count (150-450) x10^3/uL MPV (7.5-11.0) fL Gran % (36.0-66.0) % Immature Gran % (Auto) (0.00-0.4) % Nucleat RBC Rel Count (0.00-0.1) % Eos # (Auto) (0-0.5) x10^3/uL Immature Gran # (Auto) (0.00-0.03) x10^3u/L Absolute Lymphs (auto) (1.0-4.6) x10^3/uL Absolute Monos (auto) (0.0-1.3) x10^3/uL Absolute Nucleated RBC (0.00-0.01) x10^3u/L Lymphocytes % (24.0-44.0) % Monocytes % (0.0-12.0) % Eosinophils % (0.00-5.0) % Basophils % (0.0-0.4) % Absolute Granulocytes (1.4-6.9) x10^3/uL Basophils # (0-0.4) x10^3/uL Sodium 136 L (137-145) mmol/L Potassium 3.8 (3.5-5.1) mmol/L Chloride 107 (98-107) mmol/L Carbon Dioxide 24 (22-30) mmol/L Anion Gap 8.6 (5-15) MEQ/L BUN 15 (7-17) mg/dL Creatinine 0.67 (0.52-1.04) mg/dL Estimated GFR > 60.0 ML/MIN Glucose 99 (74-106) mg/dL POC Glucometer (74 to 106) mg/dL Calcium 8.8 (8.4-10.2) mg/dL Total Bilirubin 0.60 (0.2-1.3) mg/dL AST 28 (14-36) U/L ALT 24 (0-35) U/L Alkaline Phosphatase 65 (38-126) U/L Serum Total Protein 7.0 (6.3-8.2) g/dL Albumin 3.6 (3.5-5.0) g/dL Triglycerides (30-150) mg/dL Cholesterol (50-200) mg/dL LDL Cholesterol (30-100) mg/dL HDL Cholesterol (40-60) mg/dL Heart Disease Risk Ratio Lipase (23-300) U/L Urine Color (Yellow) Urine Appearance (Clear) Urine pH (4.6-8.0) Ur Specific Moore (1.005-1.030) Urine Protein (Negative) Urine Glucose (UA) (Negative) mg/dL Urine Ketones (Negative) Urine Blood (Negative) Urine Nitrite (Negative) Urine Bilirubin (Negative) Urine Urobilinogen (0.2) mg/dL Ur Leukocyte Esterase (Negative) U Hyaline Cast (Auto) (0-2) /LPF Urine Microscopic RBC (0-5) /HPF Urine Microscopic WBC (0-5) /HPF Ur Epithelial Cells (None Seen) /HPF Urine Bacteria (None Seen) /HPF Urine Culture Reflexed (NO) Radiology Exams: Radiology Procedures Category Date Time Status ABDOMEN AND PELVIS W/0 CONTRAS [CT] Stat Exams 04/04/23 15:40 Completed HIDA-GALL BLADDER [NUCMED] Urgent Exams 04/04/23 20:00 Ordered US ABDOMEN LIMITED [ABDOMINAL-LIMITED] [US] Routine Exams 04/04/23 19:59 Ordered Assessment/Plan (1) Acute pancreatitis Current Visit: Yes Status: Acute Qualifiers: Pancreatitis type: biliary Assessment & Plan: Patient has elevated Lipase However, CT does not show changes of pancreatitis Pain is very atypical for pancreatitis However, patient does have cholelithiasis For now will plan bowel rest, IV fluids, and pain control. Recheck lipase in am Will get us of abdomen and HIDA scan 04/04: -Lipase elevated, most likely secondary to GB disease, -Unable to obtain HIDA scan until Thursmuch improved [id number] -US abd pending -Surg consult pending -Continue IVF,pain control for now Code(s): K85.90 - ACUTE PANCREATITIS WITHOUT NECROSIS OR INFECTION, UNSP (2) Cholelithiasis Current Visit: Yes Status: Chronic Assessment & Plan: Patient has had cholelithiasis for some time If she has cholecystitis, it could be causing pancreatitis Will get us of abdomen and check HIDA scan. 04/04: -See pancreatitis (3) Diabetes type 2, controlled Current Visit: Yes Status: Chronic Qualifiers: Diabetes mellitus usp insulin use: without medical terminologist use Assessment & Plan: Monitor BS. SS insulin Code(s): E11.9 - TYPE 2 DIABETES MELLITUS WITHOUT COMPLICATIONS (4) Hyperlipidemia Current Visit: Yes Status: Chronic Qualifiers: Hyperlipidemia type: pure hypercholesterolemia Qualified Code(s): E78.00 - Pure hypercholesterolemia, unspecified; E78.0 - Pure hypercholesterolemia Assessment & Plan: Continue home meds Code(s): E78.5 - HYPERLIPIDEMIA, UNSPECIFIED (5) Hypertension Current Visit: Yes Status: Chronic Qualifiers: Hypertension type: primary hypertension Qualified Code(s): I10 - Essential (primary) hypertension Assessment & Plan: Continue home meds Code(s): I10 - ESSENTIAL (PRIMARY) HYPERTENSION (6) Elevated lipase Current Visit: No Status: Acute Assessment & Plan: -see pancreatitis Code(s): R74.8 - ABNORMAL LEVELS OF OTHER SERUM ENZYMES
[2023-04-05] MEDS: MORPHINE SULFATE 2 MG INJ IV PRN ×2 (08:37→22:22)
[2023-04-05] MEDS: Zestril 10 MG PO SCH (08:38)
[2023-04-05] MEDS ORDERED: ENOXAPARIN SODIUM SQ SCH (10:00)
--- NOTE | 2023-04-05 12:51 | XRAY ---
Indication: Abdomen pain. Cholelithiasis. Two-dimensional right upper quadrant sonogram performed. Comparison: None Gallbladder normally distended with a few gallstones in the dependent portion, largest 1 cm. No abnormal cobbler wall thickening or pericholecystic fluid. Common bile duct measures 2.3 mm. No intrahepatic biliary distention. Remaining visualized liver, pancreas, and right kidney are sonographically unremarkable. Right kidney measures 11.2 cm in length. Impression: Cholelithiasis without cholecystitis.
[2023-04-06] MEDS: Sodium Chloride 0.9% 1000 ML 1,000 ML IV SCH (01:28)
[2023-04-06 04:50] LABS: Hematocrit 34.1 % (35-47); Hemoglobin 11.6 g/dL (12.0-16.0); Mean Cell Volume 87.2 fL (78-100); Mean Corpuscular Hemoglobin 29.7 pg (26-32); Platelet Count 171 x10^3/uL (150-450); Red Blood Count 3.91 x10^6/uL (4.1-5.4); White Blood Count 4.7 x10^3/uL (4.0-10.5)
--- NOTE | 2023-04-06 05:08 | PCM.DS ---
Discharge Summary Date of Admission: 04/04/23 18:12 Date of Discharge: 04/06/23 Admitting Physician: LORIE ANSARI MD Consults: Consults on Case 04/05/23 10:53 Consult Surgery ROUTINE Primary Care Provider: ANTHONY WALTON Allergies Allergies No Known Drug Allergies Allergy (Verified 04/04/23 15:29) Hospital Summary - Hospital Course Hospital Course: is a 57 year old female with a pmhx of DM, HTN, HLK, and peripheral neuropathy who presented to ED 04/04/23 with complaints of RLQ abdominal pain with associated dizziness and "spotty vision." Patient reports chronic low aching abdominal pain since September which has been evaluated with negative findings. Admitted with pancreatitis/cholelithiasis. CT imaging noting worsening diffuse fecal stasis and chronic findings of gallstones/gravel, arteriosclerotic disease, and chronic bony findings. US of the abdomen showing Cholelithiasis without cholecystitis. Patient has known GB disease, has had surgery consult in the past. Discussed labwork, lipase trending down, most likely elevated secondary to GB. Surgery has been consulted, would like patient to have cardiac clearance before surgical intervention. Patient tolerating a diet, pain improved, no nausea or vomiting. Stable and ready for discharge. Plan is for cardiac clearance as OP with surgery as OP. Patient agreeable to plan. New Diagnosis:Cholelitiasis New Medications: none Follow Up: PCP/Cardiology/Surgery Latest Assessment & Plan (1) Acute pancreatitis Current Visit: Yes Status: Acute Qualifiers: Pancreatitis type: biliary Assessment & Plan: Patient has elevated Lipase However, CT does not show changes of pancreatitis Pain is very atypical for pancreatitis However, patient does have cholelithiasis For now will plan bowel rest, IV fluids, and pain control. Recheck lipase in am Will get us of abdomen and HIDA scan 04/04: -Lipase elevated, most likely secondary to GB disease, -Unable to obtain HIDA scan until Thursmuch improved [id number] -US abd pending -Surg consult pending -Continue IVF,pain control for now Code(s): K85.90 - ACUTE PANCREATITIS WITHOUT NECROSIS OR INFECTION, UNSP (2) Cholelithiasis Current Visit: Yes Status: Chronic Assessment & Plan: Patient has had cholelithiasis for some time If she has cholecystitis, it could be causing pancreatitis Will get us of abdomen and check HIDA scan. 04/04: -See pancreatitis (3) Diabetes type 2, controlled Current Visit: Yes Status: Chronic Qualifiers: Diabetes mellitus intermodal dispatcher insulin use: without intermodal dispatcher use Assessment & Plan: Monitor BS. SS insulin Code(s): E11.9 - TYPE 2 DIABETES MELLITUS WITHOUT COMPLICATIONS (4) Hyperlipidemia Current Visit: Yes Status: Chronic Qualifiers: Hyperlipidemia type: pure hypercholesterolemia Qualified Code(s): E78.00 - Pure hypercholesterolemia, unspecified; E78.0 - Pure hypercholesterolemia Assessment & Plan: Continue home meds Code(s): E78.5 - HYPERLIPIDEMIA, UNSPECIFIED (5) Hypertension Current Visit: Yes Status: Chronic Qualifiers: Hypertension type: primary hypertension Qualified Code(s): I10 - Essential (primary) hypertension Assessment & Plan: Continue home meds Code(s): I10 - ESSENTIAL (PRIMARY) HYPERTENSION (6) Elevated lipase Current Visit: No Status: Acute Assessment & Plan: -see pancreatitis I spent 35 minutes [id number] with the patient on the day of discharge performing discharge exam, discussing hospital stay and discharge instructions with patient and caregivers, preparation of discharge records, prescriptions & referral forms and addressing any questions/concerns the patient had as documented above. - Vitals & Intake/Output Vital Signs: Vital Signs Temperature 97.1 F 04/06/23 02:00 Pulse Rate 72 04/06/23 02:00 Respiratory Rate 16 04/06/23 02:00 Blood Pressure 137/69 04/06/23 02:00 O2 Sat by Pulse Oximetry 96 04/06/23 02:00 Intake & Output: Intake & Output 04/03/23 04/04/23 04/05/23 04/06/23 11:59 11:59 11:59 11:59 Intake Total 0 3754 Output Total 1800 2150 Balance -1800 1604 Weight 83.461 kg 83.461 kg - Lab Result Diagrams: 04/06/23 04:20 04/06/23 04:20 Lab Results-Last 24 Hrs: Lab Results-Last 24 Hours 04/05/23 04/05/23 04/05/23 Range/Units 04:18 06:49 11:05 WBC (4.0-10.5) x10^3/uL RBC (4.1-5.4) x10^6/uL Hgb (12.0-16.0) g/dL Hct (35-47) % MCV (78-100) fL MCH (26-32) pg MCHC (32-36) g/dL RDW (11.5-14.0) % Plt Count (150-450) x10^3/uL MPV (7.5-11.0) fL POC Glucometer 94 107 H (74 to 106) mg/dL Lipase 343 H (23-300) U/L 04/05/23 04/05/23 04/06/23 Range/Units 16:04 20:52 04:20 WBC 4.7 (4.0-10.5) x10^3/uL RBC 3.91 L (4.1-5.4) x10^6/uL Hgb 11.6 L (12.0-16.0) g/dL Hct 34.1 L (35-47) % MCV 87.2 (78-100) fL MCH 29.7 (26-32) pg MCHC 34.0 (32-36) g/dL RDW 14.0 (11.5-14.0) % Plt Count 171 (150-450) x10^3/uL MPV 9.0 (7.5-11.0) fL POC Glucometer 75 121 H (74 to 106) mg/dL Lipase (23-300) U/L Micro Results-Entire Visit: Microbiology 04/04/23 16:49 Urine Culture - Preliminary Clean Catch Midstream NO GROWTH TO DATE Accuchecks Date 04/05/23 Date 04/05/23 Date 04/05/23 Date 04/05/23 Time 21:00 Time 16:07 Time 11:15 Time 07:01 - Radiology Exams Ordered Rad Exams-Entire Visit: Radiology Procedures Category Date Time Status ABDOMEN AND PELVIS W/0 CONTRAS [CT] Stat Exams 04/04/23 15:40 Completed ABDOMINAL-LIMITED [US] Routine Exams 04/05/23 10:52 Completed HIDA-GALL BLADDER [NUCMED] Urgent Exams 04/07/23 08:00 Ordered Discharge Exam General Appearance: no apparent distress Neurologic Exam: alert, oriented x 3, cooperative Eye Exam: PERRL Ears, Nose, Throat Exam: moist mucous membranes Neck Exam: normal inspection Respiratory Exam: normal breath sounds, lungs clear Cardiovascular Exam: murmur Gastrointestinal/Abdomen Exam: soft, normal bowel sounds, tenderness (RLQ) Extremity Exam: normal inspection Skin Exam: normal color Final Diagnosis/Problem List - Final Discharge Diagnosis/Problem (1) Acute pancreatitis Current Visit: Yes Status: Acute Code(s): K85.90 - ACUTE PANCREATITIS WITHOUT NECROSIS OR INFECTION, UNSP (2) Cholelithiasis Current Visit: Yes Status: Chronic (3) Diabetes type 2, controlled Current Visit: Yes Status: Chronic Code(s): E11.9 - TYPE 2 DIABETES MELLITUS WITHOUT COMPLICATIONS (4) Hyperlipidemia Current Visit: Yes Status: Chronic Code(s): E78.5 - HYPERLIPIDEMIA, UNSPECIFIED (5) Hypertension Current Visit: Yes Status: Chronic Code(s): I10 - ESSENTIAL (PRIMARY) HYPERTENSION (6) Elevated lipase Current Visit: No Status: Acute Code(s): R74.8 - ABNORMAL LEVELS OF OTHER SERUM ENZYMES - Discharge Prescriptions: Continue Potassium Chloride 1 tab PO DAILY Metformin HCl 500 mg [Glucophage 500 MG] 2 tab PO BID Glimepiride 2 mg [Amaryl 2 MG] 1 tab PO DAILY Ezetimibe 10 mg [Zetia 10 MG] 1 tab PO DAILY Empagliflozin [Jardiance] 25 mg PO DAILY Lisinopril 10 mg [Zestril 10 MG] 1 tab PO DAILY Instructions: Gallstones (DC) Follow up with: ANTHONY WALTON MD [Primary Care Provider] - MICHAEL MCCLURE [COURTESY STAFF] -
[2023-04-06 05:18] LABS: ALBUMIN 3.1 g/dL (3.5-5.0); ALKALINE PHOSPHATASE 52 U/L (38-126); ANION GAP 9.6 MEQ/L (5-15); BLOOD UREA NITROGEN 12 mg/dL (7-17); CHLORIDE 110 mmol/L (98-107); Calcium 8.5 mg/dL (8.4-10.2); Carbon Dioxide 21 mmol/L (22-30); Creatinine 1 0.68 mg/dL (0.52-1.04); EST GLOMERULAR FILTRATION RATE > 60.0 ML/MIN; Glucose 86 mg/dL (74-106); LIPASE 125 U/L (23-300); Potassium 3.7 mmol/L (3.5-5.1); SGOT/AST 27 U/L (14-36); SGPT/ALT 23 U/L (0-35); SODIUM 138 mmol/L (137-145); Total Protein 6.2 g/dL (6.3-8.2)
--- NOTE | 2023-04-06 08:09 | CONS ---
CONSULT DATE: 04/05/2023 HISTORY: A 57-year-old female with hypertension, hyperlipidemia and diabetes. She received cardiac clearance in the past. She was supposed to have stress test that she did not have, whether insurance refused or not. She had some right lower quadrant aches and pains for four or five days that is worsening. She came in and was noted to have pancreatitis and enzymes in the 1500 range. She has history of gallstones. White count is 5.5, hemoglobin 13.5, PLT count 190,000. Again lipase was 1531. She came in yesterday. 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 Ultrasound cholelithiasis without significant wall thickening or pericholecystic fluid. CT scan shows fecal stasis. The patient did have a nuclear medicine scan in the past which was read as normal. The patient did have a normal appearing appendix on CT scan. PAST MEDICAL HISTORY: Hypertension, hyperlipidemia, diabetes. PAST SURGICAL HISTORY: D&C. Colonoscopy. HOME MEDICATIONS: Jardiance, Zetia, Amaryl, Glucophage, potassium chloride, Zestril. ALLERGIES: NKDA. FAMILY HISTORY: Negative in regards to this problem. SOCIAL HISTORY: No smoking or alcohol abuse. REVIEW OF SYSTEMS: Fourteen systems reviewed. No chest pain or palpitations. She is overweight. Again, she was supposed to have stress test in the past which she did not get done. PHYSICAL EXAMINATION: GENERAL: No acute distress. HEENT: Sclera nonicteric. EOMI. Oral mucous membranes moist. NECK: No JVD. CHEST: Equal excursion, nonlabored breathing. CVS: Regular rate and rhythm. ABDOMEN: Soft. She had some mild tenderness along the lateral right hip area. She does not seem to have significant pain over gallbladder area now. No peritoneal signs. EXTREMITIES: No edema. NEURO: Alert, moving extremities grossly symmetrically. PSYCH: Appropriate mood and affect. SKIN: Dry. IMPRESSION: Known history of gallstones. She has pancreatitis. Enzymes are improving. No evidence of acute cholecystitis. No emergent surgery needed. If her enzymes go down further if she is supposed to have stress test to get cleared before otherwise she should have that although she can get transferred somewhere to get that sooner or she can have it as an outpatient. Either way if she does it as an outpatient she can be re-evaluated as far as the right lower aches and pains whether referred pain from back problems, hip or musculoskeletal issues or other etiology is unclear. She had normal white count. Appendix appears fairly normal. No recall when she had last colonoscopy, could consider endoscopy if she has not had one in the recent past regarding that work up versus abnormal referred pain from the gallbladder. Either way, no emergent surgery is necessary. She needs cardiac clearance. She could consider cholecystectomy.
[2023-04-06] MEDS: Zestril 10 MG PO SCH (09:02)
[2023-04-06 11:27] VITALS: BP 148/70; PULSE 81; RESP 16; TEMP 97.9; O2SAT 95
== END 2023-04-06 11:20 | disposition home or self-care (01) ==
LOC: ED 15:12 → MED SURG 18:12
PROVIDERS: ADMIT Internal Medicine; ATTEND Internal Medicine
DX: K85.90 Acute pancreatitis without necrosis or infection, unspecified (principal); K80.20 Calculus of gallbladder without cholecystitis without obstruction; E11.9 Type 2 diabetes mellitus without complications; I10 Essential (primary) hypertension; E78.5 Hyperlipidemia, unspecified; R74.8 Abnormal levels of other serum enzymes; Z79.899 Other long term (current) drug therapy; Z20.828 Contact with and (suspected) exposure to other viral communicable diseases
CPT/HCPCS: 36000; 36415; 74176; 76705; 80053; 80061; 81001; 82947; 83690; 83721; 85025; 85027; 87086; 93268; 94762; 96360; 99284; G0378; Q3014; J1650; J2270; A9270-GY

== ENCOUNTER 2023-05-16 11:29 | Day surgery (SDC) | payer MEDICAID ==
--- NOTE | 2023-05-16 08:06 | HP ---
DATE OF SURGERY: 05/16/2023 HISTORY OF PRESENT ILLNESS: The patient is a 57-year-old with some aches and a little bit of nausea, had some gallstones. Stress test was scheduled. Colonoscopy was negative in the past. PAST MEDICAL HISTORY: Hypertension, diabetes mellitus type II, hyperlipidemia. PAST SURGICAL HISTORY: D&C. EGD. Colonoscopy. MEDICATIONS: Scopolamine, metformin, lisinopril, Jardiance, glimepiride, ezetimibe. ALLERGIES: NKDA. FAMILY HISTORY: Diabetes, heart disease, colon cancer. SOCIAL HISTORY: No smoking. Occasional alcohol use. REVIEW OF SYSTEMS: Fourteen systems reviewed. No chest pain or palpitations. Other systems negative or noncontributory as above and per preadmission questionnaire. PHYSICAL EXAMINATION: Height 5' 6". BMI 29.7. GENERAL: No acute distress. HEENT: Sclerae nonicteric. EOMI. Oral mucous membranes moist. NECK: No JVD. CHEST: Equal excursion, nonlabored breathing. CVS: Regular rate and rhythm. ABDOMEN: Soft, mild aches mid abdomen. No peritoneal signs. EXTREMITIES: No significant edema. NEURO: Alert, oriented, moving extremities symmetrically. PSYCH: Appropriate mood and affect. SKIN: Dry. IMPRESSION: Abdominal aches, gallstones, question chronic cholecystitis/cholelithiasis versus other etiology. Stress test was negative. Could offer cholecystectomy. She had a recent colonoscopy that was okay. She had chest x-ray and CT scan which were unremarkable according to the patient. Stress test okay. Will offer cholecystectomy and if that is negative maybe consider other GI work up or other studies. Risk of cholecystectomy including but not limited to bleeding or infection, risk of trocar injury or hernia, risk of bile leak, bile duct injury, retained stone or sludge possibly requiring further procedure either open or ERCP, general risk of anesthesia, deep venous thrombosis, pulmonary embolism, pneumonia, risk of aches, pains, bloating, constipation and/or loose stools possibly even chronic in nature and possibly no improvement in preoperative symptoms possibly requiring further work up, studies, endoscopies, other studies or referrals, possible no improvement in her symptoms possibly requiring referral. Will plan laparoscopic cholecystectomy possible. Her stress test was negative. Otherwise continue medication for hypertension, diabetes and hyperlipidemia.
[~2023-05-16 11:29] MED LIST: Lactated Ringers 1,000 ML IV ONE; Sensorcaine 0.25% 10 ML ONE
[2023-05-16] MEDS ORDERED: Sensorcaine 0.25% 10 ML ONE (11:44)
[2023-05-16] MEDS ORDERED: MEFOXIN 2 GM PREMIX** 2 GM/50 ML ML IV SCH (12:00)
[2023-05-16] MEDS ORDERED: Lactated Ringers 1,000 ML IV SCH (12:00)
[2023-05-16] MEDS ORDERED: MEFOXIN 2 GM PREMIX** 2 GM/50 ML ML IV ONE (12:02)
[2023-05-16] MEDS ORDERED: Lactated Ringers 1,000 ML IV ONE (12:02)
[2023-05-16 12:11] VITALS: RESP 18
[2023-05-16] MEDS ORDERED: SUBLIMAZE 100 MCG/2 ML ONE ×3 (13:44→15:26)
[2023-05-16] MEDS ORDERED: Versed 2 MG/2 ML Injection ONE (13:44)
[2023-05-16] MEDS ORDERED: Zemuron 100 MG/10 ML ONE (13:44)
[2023-05-16] MEDS ORDERED: DIPRIVAN 200 MG/20 ML IV ONE (13:44)
[2023-05-16] MEDS ORDERED: Sodium Chloride 0.9% 1000 ML 1,000 ML ONE (14:12)
[2023-05-16] MEDS ORDERED: BRIDION 200MG/2ML IV ONE (14:49)
[2023-05-16] MEDS ORDERED: Zestril 10 MG ONE (16:03)
[2023-05-16 16:39] VITALS: TEMP 97.4
[2023-05-16] MEDS: TRANDATE 20 MG/4 ML SYRINGE IV PRN ×4 (16:46→17:13)
[2023-05-16 17:26] VITALS: PULSE 80
[2023-05-16 17:27] VITALS: BP 173/95; O2SAT 97
--- NOTE | 2023-05-17 11:16 | OP ---
SURGERY DATE/TIME: 05/16/2023 1351 PREOPERATIVE DIAGNOSIS: Acute exacerbation of chronic cholecystitis/cholelithiasis. POSTOPERATIVE DIAGNOSIS: Acute exacerbation of chronic cholecystitis/cholelithiasis including macronodular cirrhosis. PROCEDURES: 1) Laparoscopic cholecystectomy. 2) Laparoscopic-assisted core biopsy of liver. SURGEON: Dr. Romeo Browne. ANESTHESIA: General. ESTIMATED BLOOD LOSS: Less than 10 to 15 cc. INDICATIONS: As noted above. Risks and benefits explained in detail but not limited to and consent obtained. DESCRIPTION OF PROCEDURE AND FINDINGS: The patient was taken to the operating room. General anesthesia induced. Prepped and draped in usual sterile fashion. After official time out and no disagreement with planned procedure, a transverse incision made in the supraumbilical area. Fascia grasped, pulled upward. Veress needle inserted and tested with saline. Pneumoperitoneum accomplished insufflating opening pressure of 0-15. A 5 mm bladeless port and camera were inserted without difficulty followed by two - 5 mm right upper quadrant ports and 11 mm epigastric port. The liver was noted to be macronodular consistent with cirrhosis. The gallbladder had some mild chronic inflammation. Dissecting posterior, lateral to anterior fashion slowly and carefully dissected the cystic duct and infundibular junction carefully well skeletonized until the critical view was obtained both anteriorly and posteriorly. The main cystic artery and cystic duct were clipped x3 and divided in the usual fashion. The gallbladder is slowly and carefully dissected free. It was a little bit on the vascular side given the cirrhosis requiring clipping additional oozing side veins on the cystic artery and cystic vein branches as necessary directly on the gallbladder wall. The gallbladder is slowly and carefully dissected free. Just prior to releasing from final attachments to the anterior edge of the liver, one of the graspers tore a little pinhole in the gallbladder. The bile was suctioned clear. Minimal amount of bile spilled suctioned irrigated clear. There was no visible stone spillage. The gallbladder was then continued dissected. Just prior to releasing from final attachments, the liver bed was re-inspected. Clips noted to be in place in the cystic duct and cystic artery stumps. No signs of any active bleeding or bile leakage. It was felt there is no benefit of drain placement. The gallbladder was released from final attachments, placed in the provided bag pulled up and out the 10/11 port site and passed off. The fascial defect was closed with puncture closure device with #1 Vicryl. Blunt scoop carefully reinserted elevating the liver upwards. As there was good hemostasis at the liver bed, it was elected to go ahead and do a core biopsy of the liver. Core biopsy needle was passed through the side of the abdomen and under direct vision with laparoscopy carefully inserted and the needle advanced. A core biopsy taken. There was some ooze at the surgical site. The core biopsy is passed off on a Telfa. The liver surface was immediately drawn into the liver. Again, there was no evidence of a pass plane as the blunt scoop as the blunt scoop is going in the liver well cephalad. The ooze would have been from where the needle passed through the anterior surface of the liver. It was cauterized. Good hemostasis noted. Copious amount of irrigation irrigating clear. Liver bed re-inspected. Clips noted to be in place cystic duct and cystic artery stumps. No signs of any active bleeding or bile leakage. It was felt there was no benefit in drain placement. At this point the fascial defect 1011 site closed with puncture closure device with #1 Vicryl. Pneumoperitoneum decompressed. The wound irrigated out. Skin incision closed with 4-0 Vicryl. 0.25% Marcaine local injected along the skin incision fascial defect at the end of the procedure. Steri-Strips and sterile dressing applied. The patient tolerated the procedure well. There were no immediate complications. Findings discussed with the family out in the waiting area.
== END 2023-05-16 17:40 | disposition home or self-care (01) ==
LOC: SDC 11:29
PROVIDERS: ATTEND Surgery
DX: K80.00 Calculus of gallbladder with acute cholecystitis without obstruction (principal); K74.69 Other cirrhosis of liver
CPT/HCPCS: 36415; 80053; 85027; J0694; J2250; J2704; J3010; A9270-GY

== ENCOUNTER 2023-05-26 09:54 | Emergency (ER) | payer OTHER ==
[2023-05-26 10:33] VITALS: BP 99/59; PULSE 89; RESP 27
[2023-05-26 10:40] VITALS: O2SAT 97
[2023-05-26] MEDS ORDERED: Sodium Chloride 0.9% 1000 ML 1,000 ML IV STA (10:50)
[2023-05-26] MEDS ORDERED: Sodium Chloride 0.9% 1000 ML 1,000 ML ONE (10:51)
[2023-05-26 11:17] LABS: BASOPHIL % 0.2 % (0.0-0.4); Basophil (Absolute #) 0.01 x10^3/uL (0-0.4); Eosinophil % 1.2 % (0.00-5.0); Eosinophil (Absolute #) 0.08 x10^3/uL (0-0.5); Hematocrit 37.6 % (35-47); Hemoglobin 12.8 g/dL (12.0-16.0); IMMATURE GRAN # 0.02 x10^3u/L (0.00-0.03); IMMATURE GRAN % 0.3 % (0.00-0.4); Lymphocyte (Absolute #) 0.78 x10^3/uL (1.0-4.6); Lymphocytes % 11.9 % (24.0-44.0); Mean Cell Volume 91.3 fL (78-100); Mean Corpuscular Hemoglobin 31.1 pg (26-32); Mean Platelet Volume 8.7 fL (7.5-11.0); Monocyte (Absolute #) 0.54 x10^3/uL (0.0-1.3); Monocytes % 8.3 % (0.0-12.0); Neutrophil % 78.1 % (36.0-66.0); Platelet Count 189 x10^3/uL (150-450); Red Blood Count 4.12 x10^6/uL (4.1-5.4); Red Cell Distribution Width 13.1 % (11.5-14.0); White Blood Count 6.5 x10^3/uL (4.0-10.5)
--- NOTE | 2023-05-26 11:25 | XRAY ---
Indication: Cough. Comparison: March 10, 2023 Portable chest again demonstrates normal heart and lungs. Bony thorax intact again with osteopenia and mild degenerative changes. No new/acute findings.
[2023-05-26 11:47] LABS: ALBUMIN 3.4 g/dL (3.5-5.0); ANION GAP 12.4 MEQ/L (5-15); BILIRUBIN,TOTAL 0.6 mg/dL (0.2-1.3); Calcium 8.9 mg/dL (8.4-10.2); Creatinine 1 1.1 mg/dL (0.52-1.04); EST GLOMERULAR FILTRATION RATE 57.9 ML/MIN; MAGNESIUM 1.8 mg/dL (1.6-2.3); Potassium 4.4 mmol/L (3.5-5.1); Total Protein 6.7 g/dL (6.3-8.2)
[2023-05-26 11:54] LABS: INFLUENZA A NEGATIVE (NEGATIVE); INFLUENZA B NEGATIVE (NEGATIVE); SARS-CoV-2 Xpert Express NEGATIVE (NEGATIVE)
[2023-05-26 12:01] LABS: RESPIRATORY SYNCTIAL VIRUS POSITIVE (NEGATIVE)
--- NOTE | 2023-05-26 12:23 | ERPHSYRPT ---
- History of Present Illness Time Seen by Provider: 05/26/23 10:19 Source: patient Exam Limitations: no limitations Patient Subjective Stated Complaint: States feeling "sick" for a few days. Wanted tested for COVID for the [facility] but became dizzy when stepping onto the scale at [facility] and thought maybe she should be checked out in the ER instead. Patient states she has been having dizzy spells affecting her vision since August or September of 2022 but thinks it has become worse in the past 2 days with her other illness symptoms. Triage Nursing Assessment: Patient brought back to ER in a W/C. She was able to transfer self from chair to bed. She is alert and oriented. No SOB. Dry cough present. Patient wearing prescription glasses. Dressing noted to RLE; patient states she just came from the wound clinic here and had this dressed. AYALA WNL for patient; no weakness noted. Skin tone normal. Physician History: 57 years old female with history of hypertension, hyperlipidemia, diabetes mellitus, presented in the ER with chief complaint of dizziness. Patient reports she has been feeling sick for the last few days and went to [facility] to have COVID test done as she has been feeling congested, mild coughing and aches and pains. She stood up there on the scale and started to feel dizzy/lightheaded with spotty vision which is improved now. Patient reports she has been having similar symptoms for more than 6 months but lately with her sickness it is getting worse. Patient denies having any spotty vision at present. No numbness tingling or focal weakness. Denies any spinning sensation. No associated nausea or vomiting. No palpitations or difficulty breathing. No difficulty speech reported. Allergies/Adverse Reactions: No Known Drug Allergies Allergy (Verified 05/26/23 10:20) Home Medications: Empagliflozin [Jardiance] 25 mg PO DAILY 01/14/23 [History] Ezetimibe 10 mg [Zetia 10 MG] 1 tab PO DAILY 01/14/23 [History] Glimepiride 2 mg [Amaryl 2 MG] 1 tab PO DAILY 01/14/23 [History] Metformin HCl 500 mg [Glucophage 500 MG] 2 tab PO BID 01/14/23 [History] Lisinopril 10 mg [Zestril 10 MG] 1 tab PO DAILY 02/28/23 [History] Hydrocodone/Acetaminophen [Hydrocodone-Acetamin 5-325 mg] 1 tab PO Q4-6HPRN PRN 05/26/23 [History] Hx Tetanus, Diphtheria Vaccination/Date Given: Yes Hx Influenza Vaccination/Date Given: No Hx Pneumococcal Vaccination/Date Given: No Immunizations Up to Date: Yes Travel Risk - International Travel Have you traveled outside of the country in past 3 weeks: No - Coronavirus Screening Are you exhibiting any of the following symptoms?: Yes Symptoms: Cough: New Onset, Headaches/Body Aches/Fatigue - Vaccine Status Have you recieved a Covid-19 vaccination: Yes Brace Maker: Moderna - Vaccination Dates Date of 2cond Vaccination (if applicable): 2018 - Review of Systems Constitutional: Fatigue, Weakness Eyes: No Symptoms Ears, Nose, & Throat: Nose Congestion, Throat Pain, Throat Swelling Respiratory: Cough Cardiac: No Symptoms Abdominal/Gastrointestinal: No Symptoms Genitourinary Symptoms: No Symptoms Musculoskeletal: Myalgias Skin: No Symptoms Neurological: Dizziness Psychological: No Symptoms Endocrine: No Symptoms Hematologic/Lymphatic: No Symptoms Immunological/Allergic: No Symptoms - Past Medical History Pertinent Past Medical History: Yes Neurological History: Peripheral Neuropathy ENT History: No Pertinent History Cardiac History: Angina, Hypertension Respiratory History: No Pertinent History Endocrine Medical History: Diabetes Type II Musculoskeletal History: No Pertinent History GI Medical History: Gallbladder Disease History: No Pertinent History Psycho-Social History: No Pertinent History Female Reproductive Disorders: No Pertinent History Other Medical History: PATIENT HAS A HX OF COVID IN JUL 2021. FAMILY HX OF BLADDER CANCER AND SIGNIFICANT FAMILY OF COLON CANCER. DIABETIC WOUND R LEG BEING ACTIVELY TREATED AT WOUND CLINIC. - Past Surgical History Past Surgical History: Yes Neuro Surgical History: No Pertinent History Cardiac: No Pertinent History Respiratory: No Pertinent History Gastrointestinal: Cholecystectomy Genitourinary: No Pertinent History Musculoskeletal: No Pertinent History Female Surgical History: Dilation & Curettage Other Surgical History: 2 colonscopy - Social History Smoking Status: Never smoker Exposure to second hand smoke: No Drug Use: none Patient Lives Alone: Yes - Nursing Vital Signs Nursing Vital Signs: Initial Vital Signs Pulse Rate 106 H 05/26/23 10:15 Respiratory Rate 15 05/26/23 10:15 Blood Pressure 107/64 05/26/23 10:15 O2 Sat by Pulse Oximetry 97 05/26/23 10:15 Pain Scale Pain Intensity 0 - Physical Exam General Appearance: no apparent distress, alert Eye Exam: PERRL/EOMI Ears, Nose, Throat Exam: moist mucous membranes, pharyngeal erythema, No pharynx normal Neck Exam: normal inspection, non-tender, supple, full range of motion Respiratory Exam: normal breath sounds, lungs clear Cardiovascular Exam: regular rate/rhythm, normal heart sounds Gastrointestinal/Abdomen Exam: soft, normal bowel sounds, No tenderness Back Exam: normal inspection, normal range of motion Extremity Exam: normal inspection, normal range of motion, pelvis stable Neurologic Exam: alert, oriented x 3, cooperative, chief [employer] II-XII nml as tested, normal mood/affect, nml cerebellar function, nml station & gait, sensation nml, No motor deficits Skin Exam: normal color SpO2 Interpretation: normal SpO2: 97 O2 Delivery: Room Air - Course EKG Interpreted by Me: RATE ([id number]), Sinus Rhythm, NORMAL AXIS, NORMAL INTERVALS, Non-specific ST Changes Ordered Tests: Active Orders 24 hr Category Date Time Status Wheel Inspector STAT Care 05/26/23 10:37 Active EKG-ER Only STAT Care 05/26/23 10:36 Active IV Insertion STAT Care 05/26/23 10:36 Active Pulse Oximetry (ED) STAT Care 05/26/23 10:36 Active CHEST 1 VIEW (PORTABLE) Stat Exams 05/26/23 10:37 Completed CBC W DIFF Stat Lab 05/26/23 10:36 Completed CMP Stat Lab 05/26/23 11:17 Completed CULTURE,WOUND Routine Lab 05/26/23 09:41 Received MAGNESIUM Stat Lab 05/26/23 11:17 Completed NT PRO BNPII Stat Lab 05/26/23 11:17 Completed TROPONIN Q4H Lab 05/26/23 11:17 Completed TROPONIN Q4H Lab 05/26/23 14:45 Ordered TROPONIN Q4H Lab 05/26/23 18:45 Ordered UA W/RFX UR CULTURE Stat Lab 05/26/23 10:37 Ordered Medication Summary Discontinued Medications Generic Name Dose Route Start Last Admin Trade Name Freq PRN Reason Stop Dose Admin Sodium Chloride 1,000 mls @ 999 mls/hr 05/26/23 10:50 05/26/23 11:56 Sodium Chloride 0.9% 1000 Ml IV 05/26/23 11:50 Infused .Q1H1M STA Infusion Sodium Chloride Confirm 05/26/23 10:51 Sodium Chloride 0.9% 1000 Ml Administered 05/26/23 10:52 Dose 1,000 mls @ .ROUTE [facility] Lab/Rad Data: Laboratory Result Diagrams 05/26/23 10:36 05/26/23 11:17 Laboratory Results 05/26/23 05/26/23 05/26/23 Range/Units 11:17 11:17 11:15 WBC (4.0-10.5) x10^3/uL RBC (4.1-5.4) x10^6/uL Hgb (12.0-16.0) g/dL Hct (35-47) % MCV (78-100) fL MCH (26-32) pg MCHC (32-36) g/dL RDW (11.5-14.0) % Plt Count (150-450) x10^3/uL MPV (7.5-11.0) fL Gran % (36.0-66.0) % Immature Gran % (Auto) (0.00-0.4) % Nucleat RBC Rel Count (0.00-0.1) % Eos # (Auto) (0-0.5) x10^3/uL Immature Gran # (Auto) (0.00-0.03) x10^3u/L Absolute Lymphs (auto) (1.0-4.6) x10^3/uL Absolute Monos (auto) (0.0-1.3) x10^3/uL Absolute Nucleated RBC (0.00-0.01) x10^3u/L Lymphocytes % (24.0-44.0) % Monocytes % (0.0-12.0) % Eosinophils % (0.00-5.0) % Basophils % (0.0-0.4) % Absolute Granulocytes (1.4-6.9) x10^3/uL Basophils # (0-0.4) x10^3/uL Sodium 136 L (137-145) mmol/L Potassium 4.4 (3.5-5.1) mmol/L Chloride 103 (98-107) mmol/L Carbon Dioxide 25 (22-30) mmol/L Anion Gap 12.4 (5-15) MEQ/L BUN 14 (7-17) mg/dL Creatinine 1.10 H (0.52-1.04) mg/dL Estimated GFR 57.9 ML/MIN Glucose 122 H (74-106) mg/dL Calcium 8.9 (8.4-10.2) mg/dL Magnesium 1.8 (1.6-2.3) mg/dL Total Bilirubin 0.60 (0.2-1.3) mg/dL AST 28 (14-36) U/L ALT 21 (0-35) U/L Alkaline Phosphatase 56 (38-126) U/L Troponin I < 0.012 (0.000-0.034) ng/mL NT-Pro-B Natriuret Pep 189 (<300) pg/mL Serum Total Protein 6.7 (6.3-8.2) g/dL Albumin 3.4 L (3.5-5.0) g/dL Influenza Type A Ag NEGATIVE (NEGATIVE) Influenza Type B Ag NEGATIVE (NEGATIVE) RSV (PCR) POSITIVE (NEGATIVE) SARS-CoV-2 (PCR) NEGATIVE (NEGATIVE) 05/26/23 Range/Units 10:36 WBC 6.5 (4.0-10.5) x10^3/uL RBC 4.12 (4.1-5.4) x10^6/uL Hgb 12.8 (12.0-16.0) g/dL Hct 37.6 (35-47) % MCV 91.3 (78-100) fL MCH 31.1 (26-32) pg MCHC 34.0 (32-36) g/dL RDW 13.1 (11.5-14.0) % Plt Count 189 (150-450) x10^3/uL MPV 8.7 (7.5-11.0) fL Gran % 78.1 H (36.0-66.0) % Immature Gran % (Auto) 0.3 (0.00-0.4) % Nucleat RBC Rel Count 0.0 (0.00-0.1) % Eos # (Auto) 0.08 (0-0.5) x10^3/uL Immature Gran # (Auto) 0.02 (0.00-0.03) x10^3u/L Absolute Lymphs (auto) 0.78 L (1.0-4.6) x10^3/uL Absolute Monos (auto) 0.54 (0.0-1.3) x10^3/uL Absolute Nucleated RBC 0.00 (0.00-0.01) x10^3u/L Lymphocytes % 11.9 L (24.0-44.0) % Monocytes % 8.3 (0.0-12.0) % Eosinophils % 1.2 (0.00-5.0) % Basophils % 0.2 (0.0-0.4) % Absolute Granulocytes 5.10 (1.4-6.9) x10^3/uL Basophils # 0.01 (0-0.4) x10^3/uL Sodium (137-145) mmol/L Potassium (3.5-5.1) mmol/L Chloride (98-107) mmol/L Carbon Dioxide (22-30) mmol/L Anion Gap (5-15) MEQ/L BUN (7-17) mg/dL Creatinine (0.52-1.04) mg/dL Estimated GFR ML/MIN Glucose (74-106) mg/dL Calcium (8.4-10.2) mg/dL Magnesium (1.6-2.3) mg/dL Total Bilirubin (0.2-1.3) mg/dL AST (14-36) U/L ALT (0-35) U/L Alkaline Phosphatase (38-126) U/L Troponin I (0.000-0.034) ng/mL NT-Pro-B Natriuret Pep (<300) pg/mL Serum Total Protein (6.3-8.2) g/dL Albumin (3.5-5.0) g/dL Influenza Type A Ag (NEGATIVE) Influenza Type B Ag (NEGATIVE) RSV (PCR) (NEGATIVE) SARS-CoV-2 (PCR) (NEGATIVE) - Progress Progress: improved Progress Note: 05/26/23 13:29 57-year-old with history of diabetes mellitus, hypertension is evaluated for dizziness with standing. Patient has nonfocal neuroexam throughout stay in the ER. She has a positive orthostatics with blood pressure dropping from 1 1 5-73 systolic from lying to standing with positive dizziness. EKG showed sinus rhythm with no acute ST elevations. She has negative troponins. Creatinine of 1.1 with a baseline around 0.7. She is given fluid bolus, on reevaluation her symptoms are improved and orthostasis is also improved. Patient feels better as well. She has no acute electrolyte abnormalities. I believe patient is on Jardiance and is getting some dehydration with that. I have recommended decreasing dose of lisinopril from 10 mg to 5 mg and talk to her primary care doctor and also monitoring of her symptoms and blood pressure, keep a log and follow-up with PCP. Patient has a negative COVID-19 but is positive for RSV and chest x-ray is negative for any acute cardiopulmonary findings. Recommended increase hydration, supportive care and outpatient follow-up. Discussed signs symptoms of worsening needing return to ER which she seems understanding. Stable for discharge. Counseled pt/family regarding: lab results, diagnosis, need for follow-up, rad results Medical Desision Making - Diagnostic Testing Diagnostic test were ordered, analyzed, and reviewed by me: Yes Radiological Interpretation: Reviewed by me - Departure Departure Disposition: Home Clinical Impression: Orthostatic dizziness, RSV infection Condition: Stable Critical Care Time: No Referrals: ANTHONY WALTON MD [Primary Care Provider] - Follow up with PCP 1 day Instructions: Respiratory Syncytial Virus, Adult (DC), Orthostatic Hypotension (DC) Additional Instructions: Drink plenty of fluids to keep yourself well-hydrated. Monitor your blood pressure regularly, keep a log and follow-up with primary care for reevaluation in 1 to 2 days. Decrease dose of lisinopril from 10 mg to 5 mg daily until you see your primary care. In the meanwhile if your blood pressure is staying more than 150 systolic you can switch back to 10 mg if needed. Return to ER for worsening of symptoms like cough congestion, difficulty breathing, feeling dizzy lightheaded etc. Take Tylenol as needed for aches and pains.
== END 2023-05-26 13:57 | disposition home or self-care (01) ==
LOC: ED 09:54
DX: R42 Dizziness and giddiness (principal); J06.9 Acute upper respiratory infection, unspecified; B97.4 Respiratory syncytial virus as the cause of diseases classified elsewhere; I10 Essential (primary) hypertension; E78.5 Hyperlipidemia, unspecified; E11.9 Type 2 diabetes mellitus without complications; Z79.84 Long term (current) use of oral hypoglycemic drugs; Z79.891 Long term (current) use of opiate analgesic; Z79.899 Other long term (current) drug therapy; Z86.16 Personal history of COVID-19
CPT/HCPCS: 0241U; 36000; 36415; 71045; 80053; 83735; 83880; 84484; 85025; 87070; 93005; 93041; 94760; 99284

== ENCOUNTER 2023-08-03 17:41 | Observation (INO) | payer OTHER ==
[2023-08-03] MEDS ORDERED: Sodium Chloride 0.9% 1000 ML 1,000 ML ONE ×2 (18:41→20:02)
[2023-08-03] MEDS ORDERED: Zofran 4 MG/2 ML VIAL ONE (18:41)
[2023-08-03] MEDS: Sodium Chloride 0.9% 1000 ML 1,000 ML IV STA (18:55)
[2023-08-03] MEDS: Zofran 4 MG/2 ML VIAL IV ONE (18:55)
--- NOTE | 2023-08-03 19:07 | ERPHSYRPT ---
- History of Present Illness Source: patient Patient Subjective Stated Complaint: Pt states "I woke up this afternoon on the floor in the bathroom. I remember falling asleep last night and that is the last thing I remember." Triage Nursing Assessment: Pt presented alert and oriented X3, skin pwd. PT ambulates with an uprght steady gait, able to speak in clear full sentences. Pt resting comfortably on the bed. Hx Tetanus, Diphtheria Vaccination/Date Given: No Hx Influenza Vaccination/Date Given: No Hx Pneumococcal Vaccination/Date Given: No Immunizations Up to Date: No <ROSA MARIA ALDRIDGE - Last Filed: 08/03/23 18:59> <ABDI HULL - Last Filed: 08/03/23 21:38> - History of Present Illness Time Seen by Provider: 08/03/23 17:51 Physician History: 57 years old female with history of hypertension, hyperlipidemia, diabetes mellitus, chronic diarrhea presented in the ER with complains of syncopal episode. Patient reports she went to bed yesterday 6 PM and woke up today at 4 PM on the bathroom floor. She does not know how she got in there. She does feels nauseated and probably vomited once. She denies any abdominal pain, chest pain palpitations or shortness of breath. No numbness tingling or focal weakness. She is not confused or altered at all but could not figure it out how she was sleeping that long. She denies any headache, dizziness or lightheadedness. Denies taking any drugs but Imodium and some [id number] sleeping pills which she takes regularly. (ROSA MARIA ALDRIDGE) Allergies/Adverse Reactions: No Known Drug Allergies Allergy (Verified 05/26/23 10:20) Home Medications: Empagliflozin [Jardiance] 25 mg PO DAILY 01/14/23 [History] Ezetimibe 10 mg [Zetia 10 MG] 1 tab PO DAILY 01/14/23 [History] Glimepiride 2 mg [Amaryl 2 MG] 1 tab PO DAILY 01/14/23 [History] Metformin HCl 500 mg [Glucophage 500 MG] 2 tab PO BID 01/14/23 [History] Lisinopril 10 mg [Zestril 10 MG] 1 tab PO DAILY 02/28/23 [History] Cholestyramine/Aspartame [Prevalite Powder] 1 scoop PO DAILY 08/03/23 [History] diphenhydrAMINE HCL [Sleep Aid] 25 mg PO HS 08/03/23 [History] Travel Risk - International Travel Have you traveled outside of the country in past 3 weeks: No - Coronavirus Screening Are you exhibiting any of the following symptoms?: No Close contact with a COVID-19 positive Pt in past 14-21 Days: No - Vaccine Status Have you recieved a Covid-19 vaccination: Yes 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 - Vaccination Dates Date of 2cond Vaccination (if applicable): 2020 <ROSA MARIA ALDRIDGE - Last Filed: 08/03/23 18:59> - Review of Systems Constitutional: No Symptoms Eyes: No Symptoms Ears, Nose, & Throat: No Symptoms Respiratory: No Symptoms Cardiac: No Symptoms Abdominal/Gastrointestinal: Nausea Genitourinary Symptoms: No Symptoms Musculoskeletal: No Symptoms Skin: No Symptoms Neurological: No Symptoms Endocrine: No Symptoms Hematologic/Lymphatic: No Symptoms <ROSA MARIA ALDRIDGE - Last Filed: 08/03/23 18:59> - Past Medical History Pertinent Past Medical History: Yes Neurological History: Peripheral Neuropathy ENT History: No Pertinent History Cardiac History: Hypertension Respiratory History: No Pertinent History Endocrine Medical History: Diabetes Type II Musculoskeletal History: No Pertinent History GI Medical History: Gallbladder Disease History: No Pertinent History Psycho-Social History: No Pertinent History Female Reproductive Disorders: No Pertinent History Other Medical History: PATIENT HAS A HX OF COVID IN JUL 2021. FAMILY HX OF BLADDER CANCER AND SIGNIFICANT FAMILY OF COLON CANCER. DIABETIC WOUND R LEG BEING ACTIVELY TREATED AT WOUND CLINIC. - Past Surgical History Past Surgical History: Yes Neuro Surgical History: No Pertinent History Cardiac: No Pertinent History Respiratory: No Pertinent History Gastrointestinal: Cholecystectomy Genitourinary: No Pertinent History Musculoskeletal: No Pertinent History Female Surgical History: Dilation & Curettage Other Surgical History: 2 colonscopy - Social History Smoking Status: Never smoker Exposure to second hand smoke: No Drug Use: none Patient Lives Alone: Yes <ROSA MARIA ALDRIDGE - Last Filed: 08/03/23 18:59> - Radha Coma Scale Best Eye Response (Radha): (4) open spontaneously Best Verbal Response (Radha): (5) oriented Best Motor Response ([place]): (6) obeys commands Radha Total: 15 - Physical Exam General Appearance: no apparent distress, alert Eye Exam: bilateral eye: normal inspection, PERRL, EOMI Ears, Nose, Throat Exam: normal ENT inspection, pharynx normal Neck Exam: normal inspection, non-tender, supple, full range of motion, No meningismus, No midline tenderness Respiratory: normal breath sounds, lungs clear Cardiovascular: regular rate/rhythm, normal heart sounds Gastrointestinal: soft, normal bowel sounds, No tenderness Back Exam: normal inspection, normal range of motion, No vertebral tenderness Extremity Exam: normal inspection, normal range of motion Mental Status: alert, oriented x 3, 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 Exam: normal hearing, normal speech, PERRL Coordination/Gait: normal finger to nose, normal gait Motor/Sensory: no motor deficit, no sensory deficit, no pronator drift, negative Babinski's sign DTR: bicep (R): 2+, bicep (L): 2+, knee (R): 2+, knee (L): 2+ Skin Exam: normal color SpO2 Interpretation: normal SpO2: 98 O2 Delivery: Room Air <ROSA MARIA ALDRIDGE - Last Filed: 08/03/23 18:59> - Nursing Vital Signs Nursing Vital Signs: Initial Vital Signs Temperature 96.7 F 08/03/23 17:48 Pulse Rate 92 H 08/03/23 17:48 Respiratory Rate 20 08/03/23 17:48 Blood Pressure 131/71 08/03/23 17:48 O2 Sat by Pulse Oximetry 95 08/03/23 17:48 Pain Scale Pain Intensity 0 - Course EKG Interpreted by Me: RATE (92), Sinus Rhythm, NORMAL AXIS, NORMAL INTERVALS - Radiology Exams Chest X-ray Interpretation: Teleradiologist Report (Nonacute chest) - CT Exams Head CT Interpretation: Tele-radiologist Report (Normal head) <ABDI HULL - Last Filed: 08/03/23 21:38> Ordered Tests: Active Orders 24 hr Category Date Time Status Hydroelectric Mechanic STAT Care 08/03/23 18:33 Active EKG-ER Only STAT Care 08/03/23 18:33 Active IV Insertion STAT Care 08/03/23 18:33 Active CHEST 1 VIEW (PORTABLE) Stat Exams 08/03/23 18:33 Taken HEAD WITHOUT CONTRAST [CT] Stat Exams 08/03/23 18:34 Taken BLOOD CULTURE Stat Lab 08/03/23 18:52 Received CBC W DIFF Stat Lab 08/03/23 18:15 Completed CK-Creatinine Phosphokinase Stat Lab 08/03/23 18:15 Completed CMP Stat Lab 08/03/23 18:15 Completed CMP Stat Lab 08/03/23 21:34 Ordered LIPASE Stat Lab 08/03/23 18:15 Completed Lactic Acid Stat Lab 08/03/23 18:40 Completed Lactic Acid Stat Lab 08/03/23 21:09 Received MAGNESIUM Stat Lab 08/03/23 18:15 Completed TROPONIN Q4H Lab 08/03/23 18:15 Completed TROPONIN Q4H Lab 08/03/23 22:45 Ordered TROPONIN Q4H Lab 08/04/23 02:45 Ordered UA W/RFX UR CULTURE Stat Lab 08/03/23 21:19 Received Urine Triage Profile Stat Lab 08/03/23 21:19 Received Transfer Order Routine Transfer 08/03/23 Ordered Medication Summary Generic Name Dose Route Start Last Admin Trade Name Freq PRN Reason Stop Dose Admin Sodium Chloride 1,000 mls @ 999 mls/hr 08/03/23 20:15 08/03/23 21:20 Sodium Chloride 0.9% 1000 Ml IV 09/02/23 20:14 Not Given .Q1H1M RAFAEL Discontinued Medications Generic Name Dose Route Start Last Admin Trade Name Freq PRN Reason Stop Dose Admin Acetaminophen 975 mg 08/03/23 21:30 Acetaminophen 325 Mg Tablet PO 08/03/23 21:31 STAT ONE Sodium Chloride 1,000 mls @ 999 mls/hr 08/03/23 18:33 08/03/23 20:00 Sodium Chloride 0.9% 1000 Ml IV 08/03/23 19:33 Infused .Q1H1M STA Infusion Sodium Chloride Confirm 08/03/23 18:41 Sodium Chloride 0.9% 1000 Ml Administered 08/03/23 18:42 Dose 1,000 mls @ ud .ROUTE .STK-MED ONE Ondansetron HCl 4 mg 08/03/23 18:34 08/03/23 18:55 Ondansetron Hcl 4 Mg/2 Ml Vial IV 08/03/23 18:35 4 mg STAT ONE Administration Ondansetron HCl Confirm 08/03/23 18:41 Ondansetron Hcl 4 Mg/2 Ml Vial Administered 08/03/23 18:42 Dose 4 mg .ROUTE .K-MED ONE Lab/Rad Data: Laboratory Result Diagrams 08/03/23 18:15 08/03/23 18:15 Laboratory Results 08/03/23 08/03/23 08/03/23 Range/Units 19:05 18:40 18:15 WBC (4.0-10.5) x10^3/uL RBC (4.1-5.4) x10^6/uL Hgb (12.0-16.0) g/dL Hct (35-47) % MCV (78-100) fL MCH (26-32) pg MCHC (32-36) g/dL RDW (11.5-14.0) % Plt Count (150-450) x10^3/uL MPV (7.5-11.0) fL Gran % (36.0-66.0) % Immature Gran % (Auto) (0.00-0.4) % Nucleat RBC Rel Count (0.00-0.1) % Eos # (Auto) (0-0.5) x10^3/uL Immature Gran # (Auto) (0.00-0.03) x10^3u/L Absolute Lymphs (auto) (1.0-4.6) x10^3/uL Absolute Monos (auto) (0.0-1.3) x10^3/uL Absolute Nucleated RBC (0.00-0.01) x10^3u/L Lymphocytes % (24.0-44.0) % Monocytes % (0.0-12.0) % Eosinophils % (0.00-5.0) % Basophils % (0.0-0.4) % Absolute Granulocytes (1.4-6.9) x10^3/uL Basophils # (0-0.4) x10^3/uL Sodium (137-145) mmol/L Potassium (3.5-5.1) mmol/L Chloride (98-107) mmol/L Carbon Dioxide (22-30) mmol/L Anion Gap (5-15) MEQ/L BUN (7-17) mg/dL Creatinine (0.52-1.04) mg/dL Estimated GFR ML/MIN Glucose (74-106) mg/dL Lactic Acid 4.3 H (0.4-2.0) Calcium (8.4-10.2) mg/dL Magnesium (1.6-2.3) mg/dL Total Bilirubin (0.2-1.3) mg/dL AST (14-36) U/L ALT (0-35) U/L Alkaline Phosphatase (38-126) U/L Creatine Kinase (30-135) U/L Troponin I < 0.012 (0.000-0.034) ng/mL Serum Total Protein (6.3-8.2) g/dL Albumin (3.5-5.0) g/dL Lipase (23-300) U/L Influenza Type A Ag NEGATIVE (NEGATIVE) Influenza Type B Ag NEGATIVE (NEGATIVE) RSV (PCR) NEGATIVE (NEGATIVE) SARS-CoV-2 (PCR) NEGATIVE (NEGATIVE) 08/03/23 08/03/23 08/03/23 Range/Units 18:15 18:15 18:15 WBC 11.7 H (4.0-10.5) x10^3/uL RBC 4.44 (4.1-5.4) x10^6/uL Hgb 13.9 (12.0-16.0) g/dL Hct 40.4 (35-47) % MCV 91.0 (78-100) fL MCH 31.3 (26-32) pg MCHC 34.4 (32-36) g/dL RDW 12.3 (11.5-14.0) % Plt Count 301 (150-450) x10^3/uL MPV 9.2 (7.5-11.0) fL Gran % 80.8 H (36.0-66.0) % Immature Gran % (Auto) 0.3 (0.00-0.4) % Nucleat RBC Rel Count 0.0 (0.00-0.1) % Eos # (Auto) 0.11 (0-0.5) x10^3/uL Immature Gran # (Auto) 0.04 H (0.00-0.03) x10^3u/L Absolute Lymphs (auto) 1.50 (1.0-4.6) x10^3/uL Absolute Monos (auto) 0.59 (0.0-1.3) x10^3/uL Absolute Nucleated RBC 0.00 (0.00-0.01) x10^3u/L Lymphocytes % 12.8 L (24.0-44.0) % Monocytes % 5.0 (0.0-12.0) % Eosinophils % 0.9 (0.00-5.0) % Basophils % 0.2 (0.0-0.4) % Absolute Granulocytes 9.44 H (1.4-6.9) x10^3/uL Basophils # 0.02 (0-0.4) x10^3/uL Sodium 137 (137-145) mmol/L Potassium 5.8 H (3.5-5.1) mmol/L Chloride 108 H (98-107) mmol/L Carbon Dioxide 14 L* (22-30) mmol/L Anion Gap 20.7 H (5-15) MEQ/L BUN 48 H (7-17) mg/dL Creatinine 2.19 H (0.52-1.04) mg/dL Estimated GFR 25.3 ML/MIN Glucose 69 L (74-106) mg/dL Lactic Acid (0.4-2.0) Calcium 9.9 (8.4-10.2) mg/dL Magnesium 2.4 H (1.6-2.3) mg/dL Total Bilirubin 0.60 (0.2-1.3) mg/dL AST 37 H (14-36) U/L ALT 29 (0-35) U/L Alkaline Phosphatase 68 (38-126) U/L Creatine Kinase 136 H (30-135) U/L Troponin I (0.000-0.034) ng/mL Serum Total Protein 8.0 (6.3-8.2) g/dL Albumin 4.5 (3.5-5.0) g/dL Lipase 329 H (23-300) U/L Influenza Type A Ag (NEGATIVE) Influenza Type B Ag (NEGATIVE) RSV (PCR) (NEGATIVE) SARS-CoV-2 (PCR) (NEGATIVE) <ROSA MARIA ALDRIDGE - Last Filed: 08/03/23 18:59> - Progress Progress: improved Counseled pt/family regarding: lab results, diagnosis <ABDI HULL - Last Filed: 08/03/23 21:38> - Progress Progress Note: 08/03/23 19:12 Workup is pending, care is transferred to Dr. Hull at shift change (ROSA MARIA ALDRIDGE) Patient Dors Dr. Hull at approximately [address] Hull advised follow-up on pending studies and to make final disposition. Patient is a 57-year-old female presents to our ED for syncopal episode. Workup reveals a hyperkalemia at 5.8. Anion gap acidosis of 20.7. Patient has a bicarb of 14. Lipase of 329. Patient is on Jardiance we are concerned for possible euglycemic DKA. Patient currently receiving IV fluids. However patient will require admission for further evaluation and treatment. Case discussed with Dr. Avendaño who accepts admission to observation at 9:[address] Avendaño requesting serum osmolarity study. plan of care discussed with patient. She agrees to admission to [facility] for further evaluation and treatment. Portions of this note were created with voice recognition technology. There may be grammatical, spelling, punctuation or sound alike errors Complexity problem addressed is moderate acute complicated No critical care time Complexity of data reviewed and analyzed extensive. Test ordered test reviewed. Results analyzed and correlated clinically with history and physical examination. Management discussed with hospital except admission to observation. Risk of complication and or risk morbidity/mortality patient management is high. Patient requires hospitalization for further evaluation and treatment 08/03/23 21:25 (ABDI HULL) <ROSA MARIA ALDRIDGE - Last Filed: 08/03/23 18:59> - Departure Departure Disposition: Observation Critical Care Time: No <ABDI HULL - Last Filed: 08/03/23 21:38> - Departure Clinical Impression: Syncope, Hyperkalemia, High anion gap metabolic acidosis, Euglycemic DKA Condition: Stable Referrals: ANTHONY WALTON MD [Primary Care Provider] - Follow up/PCP as directed
[2023-08-03 19:10] LABS: ALBUMIN 4.5 g/dL (3.5-5.0); ANION GAP 20.7 MEQ/L (5-15); BILIRUBIN,TOTAL 0.6 mg/dL (0.2-1.3); Calcium 9.9 mg/dL (8.4-10.2); Creatinine 1 2.19 mg/dL (0.52-1.04); EST GLOMERULAR FILTRATION RATE 25.3 ML/MIN; MAGNESIUM 2.4 mg/dL (1.6-2.3); Potassium 5.8 mmol/L (3.5-5.1)
[2023-08-03 19:40] LABS: Absolute Neutrophil Ct (ANC) 9.44 x10^3/uL (1.4-6.9); BASOPHIL % 0.2 % (0.0-0.4); Basophil (Absolute #) 0.02 x10^3/uL (0-0.4); Eosinophil % 0.9 % (0.00-5.0); Eosinophil (Absolute #) 0.11 x10^3/uL (0-0.5); Hematocrit 40.4 % (35-47); Hemoglobin 13.9 g/dL (12.0-16.0); IMMATURE GRAN # 0.04 x10^3u/L (0.00-0.03); IMMATURE GRAN % 0.3 % (0.00-0.4); Lymphocytes % 12.8 % (24.0-44.0); Mean Corpuscular Hemoglobin 31.3 pg (26-32); Mean Corpuscular Hgb Concent. 34.4 g/dL (32-36); Mean Platelet Volume 9.2 fL (7.5-11.0); Monocyte (Absolute #) 0.59 x10^3/uL (0.0-1.3); Neutrophil % 80.8 % (36.0-66.0); Platelet Count 301 x10^3/uL (150-450); Red Blood Count 4.44 x10^6/uL (4.1-5.4); Red Cell Distribution Width 12.3 % (11.5-14.0); White Blood Count 11.7 x10^3/uL (4.0-10.5)
[2023-08-03 19:50] LABS: INFLUENZA A NEGATIVE (NEGATIVE); INFLUENZA B NEGATIVE (NEGATIVE); RESPIRATORY SYNCTIAL VIRUS NEGATIVE (NEGATIVE); SARS-CoV-2 Xpert Express NEGATIVE (NEGATIVE)
[2023-08-03] MEDS: Sodium Chloride 0.9% 1000 ML 1,000 ML IV SCH (20:05)
[2023-08-03] MEDS ORDERED: TYLENOL 325 MG ONE (21:40)
[2023-08-03] MEDS: TYLENOL 325 MG PO ONE (21:41)
[2023-08-03 21:52] LABS: ADD URINE CULTURE? YES (NO); Appearance Turbid (Clear); Bacteria None Seen /HPF (None Seen); Bilirubin Negative (Negative); Blood NHT (Negative); Epithelial Cells None Seen /HPF (None Seen); Glucose, Urine 100 mg/dL (Negative); Hyaline Casts >50 /LPF (0-2); Ketones 15 (Negative); Leukocyte Esterase Moderate (Negative); Nitrite Negative (Negative); Protein,Urine Dip Trace (Negative); Specific Gravity 1.025 (1.005-1.030); Urobilinogen 0.2 mg/dL (0.2)
[2023-08-03 22:00] LABS: Amphetamine,Urine NEGATIVE (NEGATIVE); Barbiturate,Urine NEGATIVE (NEGATIVE); Benzodiazepine,Urine NEGATIVE (NEGATIVE); Cocaine,Urine NEGATIVE (NEGATIVE); Methadone,Urine NEGATIVE (NEGATIVE); Opiate,Urine NEGATIVE (NEGATIVE); PCP,Urine NEGATIVE (NEGATIVE); THC,Urine NEGATIVE (NEGATIVE)
[2023-08-03 22:28] LABS: ALBUMIN 3.9 g/dL (3.5-5.0); BILIRUBIN,TOTAL 0.5 mg/dL (0.2-1.3); Creatinine 1 1.83 mg/dL (0.52-1.04); EST GLOMERULAR FILTRATION RATE 31.4 ML/MIN; Potassium 5.7 mmol/L (3.5-5.1)
[2023-08-03] MEDS ORDERED: D50W 50 ml Abboject IV ONE (22:41)
[2023-08-03] MEDS: D50W 50 ml Abboject IV ONE (22:42)
--- NOTE | 2023-08-04 02:19 | PCM.HP ---
History of Present Illness - Chief Complaint Chief Complaint: Syncope, anion gap acidosis Date: 08/03/23 History of Present Illness: Ms. Llanes is a 57 year old female with a past medical history significant for hypertension, diabetes and mild kidney dysfunction with a baseline creatinine ~ 0.8 who presents to the ER after having fallen asleep yesterday around 6 p.m. and then waking up today at 4 p.m. but on the floor of her bathroom. She has no recollection of what transpired. She has had some issues with nausea and vomiting recently. Upon arrival, she was found to have marked alterations of her kidney function with a creatinine of 2.1, bicarb 13. She denies any dysuria, hematuria or foamy urine. No NSAIDs or contrast dye, but has been taking Jardiance. - Review of Systems Constitutional: Fatigue, No Fever, No Chills Eyes: No Vision Changes Ears, Nose, & Throat: No Painful Swallowing Respiratory: No Cough, No Orthopnea, No Short Of Breath Cardiac: No Chest Pain, No Edema, No Palpitations Abdominal/Gastrointestinal: Abdominal Pain, Nausea, Vomiting, Constipation Genitourinary Symptoms: No Dysuria, No Frequency, No Hematuria Musculoskeletal: No Arthralgias, No Back Pain Skin: No Cellulitis, No Rash Neurological: No Focal Weakness, No Gait Changes Psychological: No Suicidal Ideations Endocrine: No Polyuria, No Polydipsia Medications & Allergies Home Medications: Home Medication List Empagliflozin [Jardiance] 25 mg PO DAILY 01/14/23 [History Confirmed 08/03/23] Ezetimibe 10 mg [Zetia 10 MG] 1 tab PO DAILY 01/14/23 [History Confirmed 08/03/23] Glimepiride 2 mg [Amaryl 2 MG] 1 tab PO DAILY 01/14/23 [History Confirmed 08/03/23] Metformin HCl 500 mg [Glucophage 500 MG] 2 tab PO BID 01/14/23 [History Confirmed 08/03/23] Lisinopril 10 mg [Zestril 10 MG] 1 tab PO DAILY 02/28/23 [History Confirmed 08/03/23] Cholestyramine/Aspartame [Prevalite Powder] 1 scoop PO DAILY 08/03/23 [History Confirmed 08/03/23] diphenhydrAMINE HCL [Sleep Aid] 25 mg PO HS 08/03/23 [History Confirmed 08/03/23] Allergies/Adverse Reactions: Allergies Allergy/AdvReac Type Severity Reaction Status Date / Time No Known Drug Allergies Allergy Verified 05/26/23 10:20 - Past Medical History Past Medical History: Yes Neurological History: Peripheral Neuropathy ENT History: No Pertinent History Cardiac History: Hypertension Respiratory History: No Pertinent History Endocrine Medical History: Diabetes Type II Musculoskelatal History: No Pertinent History GI Medical History: Gallbladder Disease History: No Pertinent History Pyscho-Social History: No Pertinent History Reproductive Disorders: No Pertinent History Comment: PATIENT HAS A HX OF COVID IN JUL 2021. FAMILY HX OF BLADDER CANCER AND SIGNIFICANT FAMILY OF COLON CANCER. DIABETIC WOUND R LEG BEING ACTIVELY TREATED AT [facility]. - Past Surgical History Past Surgical History: Yes Neuro Surgical History: No Pertinent History Cardiac History: No Pertinent History Respiratory Surgery: No Pertinent History GI Surgical History: Cholecystectomy Genitourinary Surgical Hx: No Pertinent History Musculskeletal Surgical Hx: No Pertinent History Female Surgical History: Dilation & Curettage Other Surgical History: 2 colonscopy - Social History Smoking Status: Never smoker Exposure to second hand smoke: No Alcohol: None Drug Use: none - Social Determinants of Health Will the patient participate in the screening: Yes Do you worry about a steady place to live?: No In the past 12 months,have you had to go without utilities?: No Have you or anyone in your house had to go without enough: No Transportation Issues: No Has anyone in your support network made you feel unsafe?: No Does the patient want assistance with any of the above?: No Comment: temporarily unemployed - Physical Exam Vital Signs: Vital Signs - 24 hr Temp Pulse Resp BP BP Pulse Ox 08/04/23 01:00 101 H 160/82 97 08/04/23 00:31 161/78 97 08/04/23 00:01 106 H 18 129/50 98 08/03/23 23:30 102 H 159/80 98 08/03/23 23:00 103 H 132/85 98 08/03/23 22:30 143/76 08/03/23 22:05 103 H 166/99 99 08/03/23 22:02 99 08/03/23 21:30 155/87 100 08/03/23 21:18 143/80 99 08/03/23 21:00 104 H 149/82 99 08/03/23 20:45 142/86 98 08/03/23 20:30 148/78 99 08/03/23 20:15 159/116 100 08/03/23 20:01 99 H 159/81 100 08/03/23 19:45 144/91 99 08/03/23 19:12 98 08/03/23 19:00 95 H 144/91 100 08/03/23 18:49 98 H 20 98 08/03/23 17:48 96.7 F 92 H 20 131/71 95 General Appearance: no apparent distress Neurologic Exam: alert Ears, Nose, Throat Exam: dry mucous membranes Neck Exam: supple Respiratory Exam: No respiratory distress, No rhonchi, No wheezing Cardiovascular Exam: regular rate/rhythm Gastrointestinal/Abdomen Exam: soft Extremity Exam: No pedal edema, No swelling Skin Exam: warm, No rash Results - Labs Lab/Micro Results: Lab Results-Last 24 Hours 08/03/23 08/03/23 08/03/23 Range/Units 18:15 18:15 18:15 WBC 11.7 H (4.0-10.5) x10^3/uL RBC 4.44 (4.1-5.4) x10^6/uL Hgb 13.9 (12.0-16.0) g/dL Hct 40.4 (35-47) % MCV 91.0 (78-100) fL MCH 31.3 (26-32) pg MCHC 34.4 (32-36) g/dL RDW 12.3 (11.5-14.0) % Plt Count 301 (150-450) x10^3/uL MPV 9.2 (7.5-11.0) fL Gran % 80.8 H (36.0-66.0) % Immature Gran % (Auto) 0.3 (0.00-0.4) % Nucleat RBC Rel Count 0.0 (0.00-0.1) % Eos # (Auto) 0.11 (0-0.5) x10^3/uL Immature Gran # (Auto) 0.04 H (0.00-0.03) x10^3u/L Absolute Lymphs (auto) 1.50 (1.0-4.6) x10^3/uL Absolute Monos (auto) 0.59 (0.0-1.3) x10^3/uL Absolute Nucleated RBC 0.00 (0.00-0.01) x10^3u/L Lymphocytes % 12.8 L (24.0-44.0) % Monocytes % 5.0 (0.0-12.0) % Eosinophils % 0.9 (0.00-5.0) % Basophils % 0.2 (0.0-0.4) % Absolute Granulocytes 9.44 H (1.4-6.9) x10^3/uL Basophils # 0.02 (0-0.4) x10^3/uL Sodium 137 (137-145) mmol/L Potassium 5.8 H (3.5-5.1) mmol/L Chloride 108 H (98-107) mmol/L Carbon Dioxide 14 L* (22-30) mmol/L Anion Gap 20.7 H (5-15) MEQ/L BUN 48 H (7-17) mg/dL Creatinine 2.19 H (0.52-1.04) mg/dL Estimated GFR 25.3 ML/MIN Glucose 69 L (74-106) mg/dL POC Glucometer (74 to 106) mg/dL Lactic Acid (0.4-2.0) Calcium 9.9 (8.4-10.2) mg/dL Magnesium 2.4 H (1.6-2.3) mg/dL Total Bilirubin 0.60 (0.2-1.3) mg/dL AST 37 H (14-36) U/L ALT 29 (0-35) U/L Alkaline Phosphatase 68 (38-126) U/L Creatine Kinase 136 H (30-135) U/L Troponin I (0.000-0.034) ng/mL Serum Total Protein 8.0 (6.3-8.2) g/dL Albumin 4.5 (3.5-5.0) g/dL Lipase 329 H (23-300) U/L Urine Color (Yellow) Urine Appearance (Clear) Urine pH (4.6-8.0) Ur Specific [place] (1.005-1.030) Urine Protein (Negative) Urine Glucose (UA) (Negative) mg/dL Urine Ketones (Negative) Urine Blood (Negative) Urine Nitrite (Negative) Urine Bilirubin (Negative) Urine Urobilinogen (0.2) mg/dL Ur Leukocyte Esterase (Negative) U Hyaline Cast (Auto) (0-2) /LPF Urine Microscopic RBC (0-5) /HPF Urine Microscopic WBC (0-5) /HPF Ur Epithelial Cells (None Seen) /HPF Urine Bacteria (None Seen) /HPF Urine Culture Reflexed (NO) Urine Opiates Level (NEGATIVE) Ur Methadone (NEGATIVE) Urine Barbiturates (NEGATIVE) Ur Phencyclidine (PCP) (NEGATIVE) Urine Amphetamine (NEGATIVE) U Benzodiazepine Level (NEGATIVE) Urine Cocaine (NEGATIVE) Urine Marijuana (THC) (NEGATIVE) Influenza Type A Ag (NEGATIVE) Influenza Type B Ag (NEGATIVE) RSV (PCR) (NEGATIVE) SARS-CoV-2 (PCR) (NEGATIVE) 08/03/23 08/03/23 08/03/23 Range/Units 18:15 18:40 19:05 WBC (4.0-10.5) x10^3/uL RBC (4.1-5.4) x10^6/uL Hgb (12.0-16.0) g/dL Hct (35-47) % MCV (78-100) fL MCH (26-32) pg MCHC (32-36) g/dL RDW (11.5-14.0) % Plt Count (150-450) x10^3/uL MPV (7.5-11.0) fL Gran % (36.0-66.0) % Immature Gran % (Auto) (0.00-0.4) % Nucleat RBC Rel Count (0.00-0.1) % Eos # (Auto) (0-0.5) x10^3/uL Immature Gran # (Auto) (0.00-0.03) x10^3u/L Absolute Lymphs (auto) (1.0-4.6) x10^3/uL Absolute Monos (auto) (0.0-1.3) x10^3/uL Absolute Nucleated RBC (0.00-0.01) x10^3u/L Lymphocytes % (24.0-44.0) % Monocytes % (0.0-12.0) % Eosinophils % (0.00-5.0) % Basophils % (0.0-0.4) % Absolute Granulocytes (1.4-6.9) x10^3/uL Basophils # (0-0.4) x10^3/uL Sodium (137-145) mmol/L Potassium (3.5-5.1) mmol/L Chloride (98-107) mmol/L Carbon Dioxide (22-30) mmol/L Anion Gap (5-15) MEQ/L BUN (7-17) mg/dL Creatinine (0.52-1.04) mg/dL Estimated GFR ML/MIN Glucose (74-106) mg/dL POC Glucometer (74 to 106) mg/dL Lactic Acid 4.3 H (0.4-2.0) Calcium (8.4-10.2) mg/dL Magnesium (1.6-2.3) mg/dL Total Bilirubin (0.2-1.3) mg/dL AST (14-36) U/L ALT (0-35) U/L Alkaline Phosphatase (38-126) U/L Creatine Kinase (30-135) U/L Troponin I < 0.012 (0.000-0.034) ng/mL Serum Total Protein (6.3-8.2) g/dL Albumin (3.5-5.0) g/dL Lipase (23-300) U/L Urine Color (Yellow) Urine Appearance (Clear) Urine pH (4.6-8.0) Ur Specific [place] (1.005-1.030) Urine Protein (Negative) Urine Glucose (UA) (Negative) mg/dL Urine Ketones (Negative) Urine Blood (Negative) Urine Nitrite (Negative) Urine Bilirubin (Negative) Urine Urobilinogen (0.2) mg/dL Ur Leukocyte Esterase (Negative) U Hyaline Cast (Auto) (0-2) /LPF Urine Microscopic RBC (0-5) /HPF Urine Microscopic WBC (0-5) /HPF Ur Epithelial Cells (None Seen) /HPF Urine Bacteria (None Seen) /HPF Urine Culture Reflexed (NO) Urine Opiates Level (NEGATIVE) Ur Methadone (NEGATIVE) Urine Barbiturates (NEGATIVE) Ur Phencyclidine (PCP) (NEGATIVE) Urine Amphetamine (NEGATIVE) U Benzodiazepine Level (NEGATIVE) Urine Cocaine (NEGATIVE) Urine Marijuana (THC) (NEGATIVE) Influenza Type A Ag NEGATIVE (NEGATIVE) Influenza Type B Ag NEGATIVE (NEGATIVE) RSV (PCR) NEGATIVE (NEGATIVE) SARS-CoV-2 (PCR) NEGATIVE (NEGATIVE) 08/03/23 08/03/23 08/03/23 Range/Units 21:09 21:19 21:19 WBC (4.0-10.5) x10^3/uL RBC (4.1-5.4) x10^6/uL Hgb (12.0-16.0) g/dL Hct (35-47) % MCV (78-100) fL MCH (26-32) pg MCHC (32-36) g/dL RDW (11.5-14.0) % Plt Count (150-450) x10^3/uL MPV (7.5-11.0) fL Gran % (36.0-66.0) % Immature Gran % (Auto) (0.00-0.4) % Nucleat RBC Rel Count (0.00-0.1) % Eos # (Auto) (0-0.5) x10^3/uL Immature Gran # (Auto) (0.00-0.03) x10^3u/L Absolute Lymphs (auto) (1.0-4.6) x10^3/uL Absolute Monos (auto) (0.0-1.3) x10^3/uL Absolute Nucleated RBC (0.00-0.01) x10^3u/L Lymphocytes % (24.0-44.0) % Monocytes % (0.0-12.0) % Eosinophils % (0.00-5.0) % Basophils % (0.0-0.4) % Absolute Granulocytes (1.4-6.9) x10^3/uL Basophils # (0-0.4) x10^3/uL Sodium (137-145) mmol/L Potassium (3.5-5.1) mmol/L Chloride (98-107) mmol/L Carbon Dioxide (22-30) mmol/L Anion Gap (5-15) MEQ/L BUN (7-17) mg/dL Creatinine (0.52-1.04) mg/dL Estimated GFR ML/MIN Glucose (74-106) mg/dL POC Glucometer (74 to 106) mg/dL Lactic Acid 1.3 (0.4-2.0) Calcium (8.4-10.2) mg/dL Magnesium (1.6-2.3) mg/dL Total Bilirubin (0.2-1.3) mg/dL AST (14-36) U/L ALT (0-35) U/L Alkaline Phosphatase (38-126) U/L Creatine Kinase (30-135) U/L Troponin I (0.000-0.034) ng/mL Serum Total Protein (6.3-8.2) g/dL Albumin (3.5-5.0) g/dL Lipase (23-300) U/L Urine Color Yellow (Yellow) Urine Appearance Turbid A (Clear) Urine pH 5.0 (4.6-8.0) Ur Specific [place] 1.025 (1.005-1.030) Urine Protein Trace A (Negative) Urine Glucose (UA) 100 A (Negative) mg/dL Urine Ketones 15 A (Negative) Urine Blood NHT (Negative) Urine Nitrite Negative (Negative) Urine Bilirubin Negative (Negative) Urine Urobilinogen 0.2 (0.2) mg/dL Ur Leukocyte Esterase Moderate A (Negative) U Hyaline Cast (Auto) >50 A (0-2) /LPF Urine Microscopic RBC 3-5 (0-5) /HPF Urine Microscopic WBC 6-10 A (0-5) /HPF Ur Epithelial Cells None Seen (None Seen) /HPF Urine Bacteria None Seen (None Seen) /HPF Urine Culture Reflexed YES (NO) Urine Opiates Level NEGATIVE (NEGATIVE) Ur Methadone NEGATIVE (NEGATIVE) Urine Barbiturates NEGATIVE (NEGATIVE) Ur Phencyclidine (PCP) NEGATIVE (NEGATIVE) Urine Amphetamine NEGATIVE (NEGATIVE) U Benzodiazepine Level NEGATIVE (NEGATIVE) Urine Cocaine NEGATIVE (NEGATIVE) Urine Marijuana (THC) NEGATIVE (NEGATIVE) Influenza Type A Ag (NEGATIVE) Influenza Type B Ag (NEGATIVE) RSV (PCR) (NEGATIVE) SARS-CoV-2 (PCR) (NEGATIVE) 08/03/23 08/03/23 08/03/23 Range/Units 22:11 22:38 22:45 WBC (4.0-10.5) x10^3/uL RBC (4.1-5.4) x10^6/uL Hgb (12.0-16.0) g/dL Hct (35-47) % MCV (78-100) fL MCH (26-32) pg MCHC (32-36) g/dL RDW (11.5-14.0) % Plt Count (150-450) x10^3/uL MPV (7.5-11.0) fL Gran % (36.0-66.0) % Immature Gran % (Auto) (0.00-0.4) % Nucleat RBC Rel Count (0.00-0.1) % Eos # (Auto) (0-0.5) x10^3/uL Immature Gran # (Auto) (0.00-0.03) x10^3u/L Absolute Lymphs (auto) (1.0-4.6) x10^3/uL Absolute Monos (auto) (0.0-1.3) x10^3/uL Absolute Nucleated RBC (0.00-0.01) x10^3u/L Lymphocytes % (24.0-44.0) % Monocytes % (0.0-12.0) % Eosinophils % (0.00-5.0) % Basophils % (0.0-0.4) % Absolute Granulocytes (1.4-6.9) x10^3/uL Basophils # (0-0.4) x10^3/uL Sodium 136 L (137-145) mmol/L Potassium 5.7 H (3.5-5.1) mmol/L Chloride 112 H (98-107) mmol/L Carbon Dioxide 13 L* (22-30) mmol/L Anion Gap 17.0 H (5-15) MEQ/L BUN 47 H (7-17) mg/dL Creatinine 1.83 H (0.52-1.04) mg/dL Estimated GFR 31.4 ML/MIN Glucose 43 L* (74-106) mg/dL POC Glucometer 56 L (74 to 106) mg/dL Lactic Acid (0.4-2.0) Calcium 9.0 (8.4-10.2) mg/dL Magnesium (1.6-2.3) mg/dL Total Bilirubin 0.50 (0.2-1.3) mg/dL AST 31 (14-36) U/L ALT 24 (0-35) U/L Alkaline Phosphatase 64 (38-126) U/L Creatine Kinase (30-135) U/L Troponin I < 0.012 (0.000-0.034) ng/mL Serum Total Protein 7.0 (6.3-8.2) g/dL Albumin 3.9 (3.5-5.0) g/dL Lipase (23-300) U/L Urine Color (Yellow) Urine Appearance (Clear) Urine pH (4.6-8.0) Ur Specific [place] (1.005-1.030) Urine Protein (Negative) Urine Glucose (UA) (Negative) mg/dL Urine Ketones (Negative) Urine Blood (Negative) Urine Nitrite (Negative) Urine Bilirubin (Negative) Urine Urobilinogen (0.2) mg/dL Ur Leukocyte Esterase (Negative) U Hyaline Cast (Auto) (0-2) /LPF Urine Microscopic RBC (0-5) /HPF Urine Microscopic WBC (0-5) /HPF Ur Epithelial Cells (None Seen) /HPF Urine Bacteria (None Seen) /HPF Urine Culture Reflexed (NO) Urine Opiates Level (NEGATIVE) Ur Methadone (NEGATIVE) Urine Barbiturates (NEGATIVE) Ur Phencyclidine (PCP) (NEGATIVE) Urine Amphetamine (NEGATIVE) U Benzodiazepine Level (NEGATIVE) Urine Cocaine (NEGATIVE) Urine Marijuana (THC) (NEGATIVE) Influenza Type A Ag (NEGATIVE) Influenza Type B Ag (NEGATIVE) RSV (PCR) (NEGATIVE) SARS-CoV-2 (PCR) (NEGATIVE) 08/03/23 Range/Units 23:13 WBC (4.0-10.5) x10^3/uL RBC (4.1-5.4) x10^6/uL Hgb (12.0-16.0) g/dL Hct (35-47) % MCV (78-100) fL MCH (26-32) pg MCHC (32-36) g/dL RDW (11.5-14.0) % Plt Count (150-450) x10^3/uL MPV (7.5-11.0) fL Gran % (36.0-66.0) % Immature Gran % (Auto) (0.00-0.4) % Nucleat RBC Rel Count (0.00-0.1) % Eos # (Auto) (0-0.5) x10^3/uL Immature Gran # (Auto) (0.00-0.03) x10^3u/L Absolute Lymphs (auto) (1.0-4.6) x10^3/uL Absolute Monos (auto) (0.0-1.3) x10^3/uL Absolute Nucleated RBC (0.00-0.01) x10^3u/L Lymphocytes % (24.0-44.0) % Monocytes % (0.0-12.0) % Eosinophils % (0.00-5.0) % Basophils % (0.0-0.4) % Absolute Granulocytes (1.4-6.9) x10^3/uL Basophils # (0-0.4) x10^3/uL Sodium (137-145) mmol/L Potassium (3.5-5.1) mmol/L Chloride (98-107) mmol/L Carbon Dioxide (22-30) mmol/L Anion Gap (5-15) MEQ/L BUN (7-17) mg/dL Creatinine (0.52-1.04) mg/dL Estimated GFR ML/MIN Glucose (74-106) mg/dL POC Glucometer 122 H (74 to 106) mg/dL Lactic Acid (0.4-2.0) Calcium (8.4-10.2) mg/dL Magnesium (1.6-2.3) mg/dL Total Bilirubin (0.2-1.3) mg/dL AST (14-36) U/L ALT (0-35) U/L Alkaline Phosphatase (38-126) U/L Creatine Kinase (30-135) U/L Troponin I (0.000-0.034) ng/mL Serum Total Protein (6.3-8.2) g/dL Albumin (3.5-5.0) g/dL Lipase (23-300) U/L Urine Color (Yellow) Urine Appearance (Clear) Urine pH (4.6-8.0) Ur Specific [place] (1.005-1.030) Urine Protein (Negative) Urine Glucose (UA) (Negative) mg/dL Urine Ketones (Negative) Urine Blood (Negative) Urine Nitrite (Negative) Urine Bilirubin (Negative) Urine Urobilinogen (0.2) mg/dL Ur Leukocyte Esterase (Negative) U Hyaline Cast (Auto) (0-2) /LPF Urine Microscopic RBC (0-5) /HPF Urine Microscopic WBC (0-5) /HPF Ur Epithelial Cells (None Seen) /HPF Urine Bacteria (None Seen) /HPF Urine Culture Reflexed (NO) Urine Opiates Level (NEGATIVE) Ur Methadone (NEGATIVE) Urine Barbiturates (NEGATIVE) Ur Phencyclidine (PCP) (NEGATIVE) Urine Amphetamine (NEGATIVE) U Benzodiazepine Level (NEGATIVE) Urine Cocaine (NEGATIVE) Urine Marijuana (THC) (NEGATIVE) Influenza Type A Ag (NEGATIVE) Influenza Type B Ag (NEGATIVE) RSV (PCR) (NEGATIVE) SARS-CoV-2 (PCR) (NEGATIVE) - Radiology Impressions Radiology Exams & Impressions: Radiology Procedures Category Date Time Status CHEST 1 VIEW (PORTABLE) Stat Exams 08/03/23 18:33 Taken HEAD WITHOUT CONTRAST [CT] Stat Exams 08/03/23 18:34 Taken Assessment/Plan (1) Acute kidney injury Current Visit: Yes Status: Acute Assessment & Plan: Likely from prerenal azotemia in setting of REBECCA with creatinine initially 2.1 (baseline 0.8) 1. IVFs 2. Hold REBECCA/SGLT2 3. Encourage PO intake 4. Follow I/Os 5. Watch electrolytes, creatinine closely Code(s): N17.9 - ACUTE KIDNEY FAILURE, UNSPECIFIED (2) High anion gap metabolic acidosis Current Visit: Yes Status: Acute Assessment & Plan: Likely from LOLITA and ketoacidosis versus lactic acidosis from Metformin 1. IVFs with bicarb 2. ABG prn 3. Trend bicarb level Code(s): E87.29 - OTHER ACIDOSIS (3) Hyperkalemia Current Visit: Yes Status: Acute Assessment & Plan: Likely from LOLITA/dietary indiscretion and REBECCA 1. Low K diet 2. K binder if available 3. Monitor electrolytes closely Code(s): E87.5 - HYPERKALEMIA (4) Diabetes type 2, controlled Current Visit: No Status: Chronic Assessment & Plan: On Metformin/Jardiance 1. Will hold meds given LOLITA 2. FSBS qAC/HS 3. Insulin sliding scale Code(s): E11.9 - TYPE 2 DIABETES MELLITUS WITHOUT COMPLICATIONS (5) Hypertension Current Visit: No Status: Chronic Qualifiers: Code(s): I10 - ESSENTIAL (PRIMARY) HYPERTENSION Telemedicine Encounter - Telemedicine Encounter Telemedicine Encounter: The entirety of this encounter was performed via Telemedicine"
[2023-08-04] MEDS ORDERED: SODIUM BICARBONATE 50 MEQ/50 ML ABBOJECT IV ONE (02:45)
[2023-08-04] MEDS ORDERED: Dextrose 5%/Water IV Soln. 1000 ML 1,000 ML IV ONE (02:45)
[2023-08-04] MEDS: Sodium Bicarbonate 50 MEQ/50 ML VIAL*** 150 MEQ in Dextrose 5%/Water IV Soln. 1000 ML 1... IV SCH ×2 (02:55→17:41)
[2023-08-04 04:04] LABS: Absolute Neutrophil Ct (ANC) 4.98 x10^3/uL (1.4-6.9); BASOPHIL % 0.5 % (0.0-0.4); Basophil (Absolute #) 0.03 x10^3/uL (0-0.4); Eosinophil % 0.9 % (0.00-5.0); Eosinophil (Absolute #) 0.06 x10^3/uL (0-0.5); Hematocrit 35.7 % (35-47); Hemoglobin 12.2 g/dL (12.0-16.0); IMMATURE GRAN # 0.02 x10^3u/L (0.00-0.03); IMMATURE GRAN % 0.3 % (0.00-0.4); Lymphocyte (Absolute #) 0.99 x10^3/uL (1.0-4.6); Mean Cell Volume 90.6 fL (78-100); Mean Corpuscular Hgb Concent. 34.2 g/dL (32-36); Mean Platelet Volume 9.3 fL (7.5-11.0); Monocyte (Absolute #) 0.53 x10^3/uL (0.0-1.3); Neutrophil % 75.3 % (36.0-66.0); Platelet Count 197 x10^3/uL (150-450); Red Blood Count 3.94 x10^6/uL (4.1-5.4); Red Cell Distribution Width 12.4 % (11.5-14.0); White Blood Count 6.6 x10^3/uL (4.0-10.5)
[2023-08-04 04:46] LABS: ALBUMIN 3.7 g/dL (3.5-5.0); ANION GAP 14.5 MEQ/L (5-15); BILIRUBIN,TOTAL 0.6 mg/dL (0.2-1.3); Calcium 9.2 mg/dL (8.4-10.2); Creatinine 1 1.75 mg/dL (0.52-1.04); EST GLOMERULAR FILTRATION RATE 33.2 ML/MIN; Total Protein 6.8 g/dL (6.3-8.2)
[2023-08-04 04:51] LABS: Potassium 5.9 mmol/L (3.5-5.1)
[2023-08-04] MEDS: Amaryl 2 MG PO SCH (08:29)
--- NOTE | 2023-08-04 08:29 | XRAY ---
Indication: Syncope. Comparison: May 26, 2023 Portable chest demonstrates new minimal left base subsegmental atelectasis/scarring. Remaining heart and lungs unremarkable. Bony thorax intact again with osteopenia and mild degenerative changes. No acute findings.
--- NOTE | 2023-08-04 08:29 | XRAY ---
Indication: Syncope. Multiple contiguous axial images obtained through the head without contrast. Comparison: None Normal appearing brain parenchyma, ventricles, and bony calvarium for patient's age. Visualized paranasal sinuses and mastoid air cells are clear. Impression: Normal CT head without contrast exam.
[2023-08-04] MEDS ORDERED: Zofran 4 MG/2 ML VIAL IV PRN (09:47)
[2023-08-04] MEDS: VELTASSA PO SCH (10:35)
[2023-08-04] MEDS: HEPARIN 5000 UNITS/0.5 ML (HIGH RISK MED) SQ SCH (10:37)
[2023-08-04] MEDS: ROCEPHIN 1 GM / 100 ML NaCl 1 GM/100 ML IVPB IV SCH (12:17)
--- NOTE | 2023-08-04 13:57 | XRAY ---
Indication: Great toe ulceration. Comparison: None 3 nonweightbearing views left foot demonstrates osteopenia, small posterior/plantar heel spurs, and moderate diffuse scattered vascular calcifications. No other bony, articular, or soft tissue abnormalities.
[2023-08-04 14:48] LABS: ALBUMIN 3.3 g/dL (3.5-5.0); ANION GAP 11.9 MEQ/L (5-15); BILIRUBIN,TOTAL 0.4 mg/dL (0.2-1.3); Calcium 8.7 mg/dL (8.4-10.2); Creatinine 1 1.4 mg/dL (0.52-1.04); EST GLOMERULAR FILTRATION RATE 43.3 ML/MIN; Potassium 5.6 mmol/L (3.5-5.1); Total Protein 6.2 g/dL (6.3-8.2)
--- NOTE | 2023-08-04 16:30 | XRAY ---
Indication: Great toe ulceration. Two-dimensional sonogram and color Doppler imaging major arteries right leg performed. Comparison: None Visualized common femoral and proximal superficial femoral arteries are widely patent. Mild scattered arteriosclerotic calcifications in the deep femoral artery. Minimal scattered arteriosclerotic disease in distal superficial femoral, popliteal, posterior tibial, and dorsal pedal arteries. Arterial waveforms are monophasic in posterior tibial and dorsal pedal arteries. Remaining right leg arterial waveforms are multiphasic. Impression: Minimal/mild scattered arteriosclerotic disease as detailed. Negative for critical stenosis/obstruction.
[2023-08-04] MEDS: HUMALOG SQ PRN (17:49)
--- NOTE | 2023-08-04 18:20 | PCM.NOTE ---
Date and Time: 08/04/231811 Subjective Assessment: Ms. Llanes is a 57 year old female with a past medical history significant for hypertension, diabetes and mild kidney dysfunction with a baseline creatinine ~ 0.8 who presents to the ER after having fallen asleep on 08/01 around 6 p.m. and then waking up the next day at 4 p.m. but on the floor of her bathroom. She has no recollection of what transpired. She has had some issues with nausea and vomiting recently. Upon arrival, she was found to have marked alterations of her kidney function with a creatinine of 2.1, bicarb 13. She denies any dysuria, hematuria or foamy urine. No NSAIDs or contrast dye, but has been taking Jardiance. She is c/o BL hip pain and a heating pad was provided. LOLITA is improv ing today. CO2 continues to be low at 18 on bicarb gtt, it has improved since admission. Pt states she overall does not feel well and has felt like this for some time now. She denies CP, SOB, abd. pain, N/V/D. - Review of Systems Constitutional: Fatigue, Weakness, No Fever, No Chills Eyes: No Symptoms Ears, Nose, & Throat: No Symptoms Respiratory: No Cough, No Short Of Breath Cardiac: No Chest Pain, No Edema, No Syncope Abdominal/Gastrointestinal: No Abdominal Pain, No Nausea, No Vomiting, No Diarrhea Genitourinary Symptoms: No Dysuria Musculoskeletal: No Back Pain, No Neck Pain Skin: No Rash Neurological: No Dizziness, No Focal Weakness, No Sensory Changes Psychological: No Symptoms Endocrine: No Symptoms Hematologic/Lymphatic: No Symptoms Immunological/Allergic: No Symptoms Objective Exam General Appearance: no apparent distress, alert Neurologic Exam: alert, oriented x 3, cooperative, normal mood/affect, nml cerebellar function, sensation nml, No motor deficits Skin Exam: normal color, warm, dry Wound Assessment: Skin/Wound Assessment Wound/Incision Assessment Start: 08/04/23 10:00 Text: Status: Active Freq: Q6H Protocol: Document 08/04/23 16:00 KD (Rec: 08/04/23 16:54 KD [id number]) Wound/Incision Assessment Left Toe Wound Assessment Shift Assessment Wound Stage Non Pressure Wound Dressing Status Dry & Intact Drainage Amount None Length (cm) (cm) 2 Width (cm) (cm) 2 Primary Dressing Bandaid Comment wound on L great toe, picture in chart, covered with band- aid and iodine per Dr. Slater Wound Photo Photo Taken Yes Date: 08/04/23 Time: 09:05 Eye Exam: PERRL, EOMI, eyes nml inspection Ears, Nose, Throat Exam: normal ENT inspection, pharynx normal, moist mucous membranes Neck Exam: normal inspection, non-tender, supple, full range of motion Respiratory Exam: normal breath sounds, lungs clear, No respiratory distress Cardiovascular Exam: regular rate/rhythm, normal heart sounds Gastrointestinal/Abdomen Exam: soft, No tenderness, No mass Extremity Exam: normal inspection, normal range of motion Back Exam: normal inspection, normal range of motion, No CVA tenderness, No vertebral tenderness Pelvic Exam: deferred Rectal Exam: deferred OBJECTIVE DATA Vital Signs: Vital Signs - 24 hr Temp Pulse Resp BP BP Pulse Ox 08/04/23 16:00 98.3 F 95 H 17 136/76 97 08/04/23 15:00 98 H 16 136/75 97 08/04/23 14:17 94 H 15 138/87 95 08/04/23 14:00 100 H 23 143/93 96 08/04/23 13:01 95 H 19 147/97 96 08/04/23 12:00 102 H 25 H 102/74 08/04/23 11:40 98.1 F 97 H 17 111/73 100 08/04/23 11:32 93 H 21 111/72 95 08/04/23 11:31 95 H 17 72 L 08/04/23 11:30 93 H 19 100 08/04/23 11:24 99 08/04/23 10:00 130/62 08/04/23 09:00 96 H 20 138/71 95 08/04/23 08:01 91 H 18 152/81 97 08/04/23 08:00 96 H 08/04/23 07:57 97.3 F 97 H 18 108/73 96 08/04/23 07:00 95 H 15 105/55 97 08/04/23 06:38 92 H 108/73 95 08/04/23 06:30 98 H 107/72 97 08/04/23 06:00 94 H 128/78 95 08/04/23 05:31 103 H 106/78 96 08/04/23 05:00 99 H 120/67 96 08/04/23 04:31 97 H 106/63 96 08/04/23 04:00 96 H 99/59 95 08/04/23 03:30 94 H 24 146/82 99 08/04/23 03:28 101 H 16 123/81 99 08/04/23 02:15 98 H 24 109/68 99 08/04/23 02:00 97 H 100 08/04/23 01:45 94 H 16 97/65 98 08/04/23 01:42 97/65 08/04/23 01:00 101 H 160/82 97 08/04/23 00:31 161/78 97 08/04/23 00:01 106 H 18 129/50 98 08/03/23 23:30 102 H 159/80 98 08/03/23 23:00 103 H 132/85 98 08/03/23 22:30 143/76 08/03/23 22:05 103 H 166/99 99 08/03/23 22:02 99 08/03/23 21:30 155/87 100 08/03/23 21:18 143/80 99 08/03/23 21:00 104 H 149/82 99 08/03/23 20:45 142/86 98 08/03/23 20:30 148/78 99 08/03/23 20:15 159/116 100 08/03/23 20:01 99 H 159/81 100 08/03/23 19:45 144/91 99 08/03/23 19:12 98 08/03/23 19:00 95 H 144/91 100 08/03/23 18:49 98 H 20 98 Pain Assessment - Last Documented Pain Intensity 2 Intake and Output: Intake & Output 08/02/23 08/03/23 08/04/23 08/05/23 11:59 11:59 11:59 11:59 Intake Total 0 340 Output Total 800 300 Balance -800 40 Weight 79.3 kg Lab Results: Lab Results-Last 24 Hours 08/03/23 08/03/23 08/03/23 Range/Units 18:15 18:15 18:15 WBC 11.7 H (4.0-10.5) x10^3/uL RBC 4.44 (4.1-5.4) x10^6/uL Hgb 13.9 (12.0-16.0) g/dL Hct 40.4 (35-47) % MCV 91.0 (78-100) fL MCH 31.3 (26-32) pg MCHC 34.4 (32-36) g/dL RDW 12.3 (11.5-14.0) % Plt Count 301 (150-450) x10^3/uL MPV 9.2 (7.5-11.0) fL Gran % 80.8 H (36.0-66.0) % Immature Gran % (Auto) 0.3 (0.00-0.4) % Nucleat RBC Rel Count 0.0 (0.00-0.1) % Eos # (Auto) 0.11 (0-0.5) x10^3/uL Immature Gran # (Auto) 0.04 H (0.00-0.03) x10^3u/L Absolute Lymphs (auto) 1.50 (1.0-4.6) x10^3/uL Absolute Monos (auto) 0.59 (0.0-1.3) x10^3/uL Absolute Nucleated RBC 0.00 (0.00-0.01) x10^3u/L Lymphocytes % 12.8 L (24.0-44.0) % Monocytes % 5.0 (0.0-12.0) % Eosinophils % 0.9 (0.00-5.0) % Basophils % 0.2 (0.0-0.4) % Absolute Granulocytes 9.44 H (1.4-6.9) x10^3/uL Basophils # 0.02 (0-0.4) x10^3/uL Sodium 137 (137-145) mmol/L Potassium 5.8 H (3.5-5.1) mmol/L Chloride 108 H (98-107) mmol/L Carbon Dioxide 14 L* (22-30) mmol/L Anion Gap 20.7 H (5-15) MEQ/L BUN 48 H (7-17) mg/dL Creatinine 2.19 H (0.52-1.04) mg/dL Estimated GFR 25.3 ML/MIN Glucose 69 L (74-106) mg/dL POC Glucometer (74 to 106) mg/dL Hemoglobin A1c (4.5-6.0) % Lactic Acid (0.4-2.0) Calcium 9.9 (8.4-10.2) mg/dL Magnesium 2.4 H (1.6-2.3) mg/dL Total Bilirubin 0.60 (0.2-1.3) mg/dL AST 37 H (14-36) U/L ALT 29 (0-35) U/L Alkaline Phosphatase 68 (38-126) U/L Creatine Kinase 136 H (30-135) U/L Troponin I (0.000-0.034) ng/mL Serum Total Protein 8.0 (6.3-8.2) g/dL Albumin 4.5 (3.5-5.0) g/dL Lipase 329 H (23-300) U/L Urine Color (Yellow) Urine Appearance (Clear) Urine pH (4.6-8.0) Ur Specific [place] (1.005-1.030) Urine Protein (Negative) Urine Glucose (UA) (Negative) mg/dL Urine Ketones (Negative) Urine Blood (Negative) Urine Nitrite (Negative) Urine Bilirubin (Negative) Urine Urobilinogen (0.2) mg/dL Ur Leukocyte Esterase (Negative) U Hyaline Cast (Auto) (0-2) /LPF Urine Microscopic RBC (0-5) /HPF Urine Microscopic WBC (0-5) /HPF Ur Epithelial Cells (None Seen) /HPF Urine Bacteria (None Seen) /HPF Urine Culture Reflexed (NO) Urine Opiates Level (NEGATIVE) Ur Methadone (NEGATIVE) Urine Barbiturates (NEGATIVE) Ur Phencyclidine (PCP) (NEGATIVE) Urine Amphetamine (NEGATIVE) U Benzodiazepine Level (NEGATIVE) Urine Cocaine (NEGATIVE) Urine Marijuana (THC) (NEGATIVE) Influenza Type A Ag (NEGATIVE) Influenza Type B Ag (NEGATIVE) RSV (PCR) (NEGATIVE) SARS-CoV-2 (PCR) (NEGATIVE) 08/03/23 08/03/23 08/03/23 Range/Units 18:15 18:40 19:05 WBC (4.0-10.5) x10^3/uL RBC (4.1-5.4) x10^6/uL Hgb (12.0-16.0) g/dL Hct (35-47) % MCV (78-100) fL MCH (26-32) pg MCHC (32-36) g/dL RDW (11.5-14.0) % Plt Count (150-450) x10^3/uL MPV (7.5-11.0) fL Gran % (36.0-66.0) % Immature Gran % (Auto) (0.00-0.4) % Nucleat RBC Rel Count (0.00-0.1) % Eos # (Auto) (0-0.5) x10^3/uL Immature Gran # (Auto) (0.00-0.03) x10^3u/L Absolute Lymphs (auto) (1.0-4.6) x10^3/uL Absolute Monos (auto) (0.0-1.3) x10^3/uL Absolute Nucleated RBC (0.00-0.01) x10^3u/L Lymphocytes % (24.0-44.0) % Monocytes % (0.0-12.0) % Eosinophils % (0.00-5.0) % Basophils % (0.0-0.4) % Absolute Granulocytes (1.4-6.9) x10^3/uL Basophils # (0-0.4) x10^3/uL Sodium (137-145) mmol/L Potassium (3.5-5.1) mmol/L Chloride (98-107) mmol/L Carbon Dioxide (22-30) mmol/L Anion Gap (5-15) MEQ/L BUN (7-17) mg/dL Creatinine (0.52-1.04) mg/dL Estimated GFR ML/MIN Glucose (74-106) mg/dL POC Glucometer (74 to 106) mg/dL Hemoglobin A1c (4.5-6.0) % Lactic Acid 4.3 H (0.4-2.0) Calcium (8.4-10.2) mg/dL Magnesium (1.6-2.3) mg/dL Total Bilirubin (0.2-1.3) mg/dL AST (14-36) U/L ALT (0-35) U/L Alkaline Phosphatase (38-126) U/L Creatine Kinase (30-135) U/L Troponin I < 0.012 (0.000-0.034) ng/mL Serum Total Protein (6.3-8.2) g/dL Albumin (3.5-5.0) g/dL Lipase (23-300) U/L Urine Color (Yellow) Urine Appearance (Clear) Urine pH (4.6-8.0) Ur Specific [place] (1.005-1.030) Urine Protein (Negative) Urine Glucose (UA) (Negative) mg/dL Urine Ketones (Negative) Urine Blood (Negative) Urine Nitrite (Negative) Urine Bilirubin (Negative) Urine Urobilinogen (0.2) mg/dL Ur Leukocyte Esterase (Negative) U Hyaline Cast (Auto) (0-2) /LPF Urine Microscopic RBC (0-5) /HPF Urine Microscopic WBC (0-5) /HPF Ur Epithelial Cells (None Seen) /HPF Urine Bacteria (None Seen) /HPF Urine Culture Reflexed (NO) Urine Opiates Level (NEGATIVE) Ur Methadone (NEGATIVE) Urine Barbiturates (NEGATIVE) Ur Phencyclidine (PCP) (NEGATIVE) Urine Amphetamine (NEGATIVE) U Benzodiazepine Level (NEGATIVE) Urine Cocaine (NEGATIVE) Urine Marijuana (THC) (NEGATIVE) Influenza Type A Ag NEGATIVE (NEGATIVE) Influenza Type B Ag NEGATIVE (NEGATIVE) RSV (PCR) NEGATIVE (NEGATIVE) SARS-CoV-2 (PCR) NEGATIVE (NEGATIVE) 08/03/23 08/03/23 08/03/23 Range/Units 21:09 21:19 21:19 WBC (4.0-10.5) x10^3/uL RBC (4.1-5.4) x10^6/uL Hgb (12.0-16.0) g/dL Hct (35-47) % MCV (78-100) fL MCH (26-32) pg MCHC (32-36) g/dL RDW (11.5-14.0) % Plt Count (150-450) x10^3/uL MPV (7.5-11.0) fL Gran % (36.0-66.0) % Immature Gran % (Auto) (0.00-0.4) % Nucleat RBC Rel Count (0.00-0.1) % Eos # (Auto) (0-0.5) x10^3/uL Immature Gran # (Auto) (0.00-0.03) x10^3u/L Absolute Lymphs (auto) (1.0-4.6) x10^3/uL Absolute Monos (auto) (0.0-1.3) x10^3/uL Absolute Nucleated RBC (0.00-0.01) x10^3u/L Lymphocytes % (24.0-44.0) % Monocytes % (0.0-12.0) % Eosinophils % (0.00-5.0) % Basophils % (0.0-0.4) % Absolute Granulocytes (1.4-6.9) x10^3/uL Basophils # (0-0.4) x10^3/uL Sodium (137-145) mmol/L Potassium (3.5-5.1) mmol/L Chloride (98-107) mmol/L Carbon Dioxide (22-30) mmol/L Anion Gap (5-15) MEQ/L BUN (7-17) mg/dL Creatinine (0.52-1.04) mg/dL Estimated GFR ML/MIN Glucose (74-106) mg/dL POC Glucometer (74 to 106) mg/dL Hemoglobin A1c (4.5-6.0) % Lactic Acid 1.3 (0.4-2.0) Calcium (8.4-10.2) mg/dL Magnesium (1.6-2.3) mg/dL Total Bilirubin (0.2-1.3) mg/dL AST (14-36) U/L ALT (0-35) U/L Alkaline Phosphatase (38-126) U/L Creatine Kinase (30-135) U/L Troponin I (0.000-0.034) ng/mL Serum Total Protein (6.3-8.2) g/dL Albumin (3.5-5.0) g/dL Lipase (23-300) U/L Urine Color Yellow (Yellow) Urine Appearance Turbid A (Clear) Urine pH 5.0 (4.6-8.0) Ur Specific [place] 1.025 (1.005-1.030) Urine Protein Trace A (Negative) Urine Glucose (UA) 100 A (Negative) mg/dL Urine Ketones 15 A (Negative) Urine Blood NHT (Negative) Urine Nitrite Negative (Negative) Urine Bilirubin Negative (Negative) Urine Urobilinogen 0.2 (0.2) mg/dL Ur Leukocyte Esterase Moderate A (Negative) U Hyaline Cast (Auto) >50 A (0-2) /LPF Urine Microscopic RBC 3-5 (0-5) /HPF Urine Microscopic WBC 6-10 A (0-5) /HPF Ur Epithelial Cells None Seen (None Seen) /HPF Urine Bacteria None Seen (None Seen) /HPF Urine Culture Reflexed YES (NO) Urine Opiates Level NEGATIVE (NEGATIVE) Ur Methadone NEGATIVE (NEGATIVE) Urine Barbiturates NEGATIVE (NEGATIVE) Ur Phencyclidine (PCP) NEGATIVE (NEGATIVE) Urine Amphetamine NEGATIVE (NEGATIVE) U Benzodiazepine Level NEGATIVE (NEGATIVE) Urine Cocaine NEGATIVE (NEGATIVE) Urine Marijuana (THC) NEGATIVE (NEGATIVE) Influenza Type A Ag (NEGATIVE) Influenza Type B Ag (NEGATIVE) RSV (PCR) (NEGATIVE) SARS-CoV-2 (PCR) (NEGATIVE) 08/03/23 08/03/23 08/03/23 Range/Units 22:11 22:38 22:45 WBC (4.0-10.5) x10^3/uL RBC (4.1-5.4) x10^6/uL Hgb (12.0-16.0) g/dL Hct (35-47) % MCV (78-100) fL MCH (26-32) pg MCHC (32-36) g/dL RDW (11.5-14.0) % Plt Count (150-450) x10^3/uL MPV (7.5-11.0) fL Gran % (36.0-66.0) % Immature Gran % (Auto) (0.00-0.4) % Nucleat RBC Rel Count (0.00-0.1) % Eos # (Auto) (0-0.5) x10^3/uL Immature Gran # (Auto) (0.00-0.03) x10^3u/L Absolute Lymphs (auto) (1.0-4.6) x10^3/uL Absolute Monos (auto) (0.0-1.3) x10^3/uL Absolute Nucleated RBC (0.00-0.01) x10^3u/L Lymphocytes % (24.0-44.0) % Monocytes % (0.0-12.0) % Eosinophils % (0.00-5.0) % Basophils % (0.0-0.4) % Absolute Granulocytes (1.4-6.9) x10^3/uL Basophils # (0-0.4) x10^3/uL Sodium 136 L (137-145) mmol/L Potassium 5.7 H (3.5-5.1) mmol/L Chloride 112 H (98-107) mmol/L Carbon Dioxide 13 L* (22-30) mmol/L Anion Gap 17.0 H (5-15) MEQ/L BUN 47 H (7-17) mg/dL Creatinine 1.83 H (0.52-1.04) mg/dL Estimated GFR 31.4 ML/MIN Glucose 43 L* (74-106) mg/dL POC Glucometer 56 L (74 to 106) mg/dL Hemoglobin A1c (4.5-6.0) % Lactic Acid (0.4-2.0) Calcium 9.0 (8.4-10.2) mg/dL Magnesium (1.6-2.3) mg/dL Total Bilirubin 0.50 (0.2-1.3) mg/dL AST 31 (14-36) U/L ALT 24 (0-35) U/L Alkaline Phosphatase 64 (38-126) U/L Creatine Kinase (30-135) U/L Troponin I < 0.012 (0.000-0.034) ng/mL Serum Total Protein 7.0 (6.3-8.2) g/dL Albumin 3.9 (3.5-5.0) g/dL Lipase (23-300) U/L Urine Color (Yellow) Urine Appearance (Clear) Urine pH (4.6-8.0) Ur Specific [place] (1.005-1.030) Urine Protein (Negative) Urine Glucose (UA) (Negative) mg/dL Urine Ketones (Negative) Urine Blood (Negative) Urine Nitrite (Negative) Urine Bilirubin (Negative) Urine Urobilinogen (0.2) mg/dL Ur Leukocyte Esterase (Negative) U Hyaline Cast (Auto) (0-2) /LPF Urine Microscopic RBC (0-5) /HPF Urine Microscopic WBC (0-5) /HPF Ur Epithelial Cells (None Seen) /HPF Urine Bacteria (None Seen) /HPF Urine Culture Reflexed (NO) Urine Opiates Level (NEGATIVE) Ur Methadone (NEGATIVE) Urine Barbiturates (NEGATIVE) Ur Phencyclidine (PCP) (NEGATIVE) Urine Amphetamine (NEGATIVE) U Benzodiazepine Level (NEGATIVE) Urine Cocaine (NEGATIVE) Urine Marijuana (THC) (NEGATIVE) Influenza Type A Ag (NEGATIVE) Influenza Type B Ag (NEGATIVE) RSV (PCR) (NEGATIVE) SARS-CoV-2 (PCR) (NEGATIVE) 08/03/23 08/04/23 08/04/23 Range/Units 23:13 02:30 02:30 WBC 6.6 (4.0-10.5) x10^3/uL RBC 3.94 L (4.1-5.4) x10^6/uL Hgb 12.2 (12.0-16.0) g/dL Hct 35.7 (35-47) % MCV 90.6 (78-100) fL MCH 31.0 (26-32) pg MCHC 34.2 (32-36) g/dL RDW 12.4 (11.5-14.0) % Plt Count 197 D (150-450) x10^3/uL MPV 9.3 (7.5-11.0) fL Gran % 75.3 H (36.0-66.0) % Immature Gran % (Auto) 0.3 (0.00-0.4) % Nucleat RBC Rel Count 0.0 (0.00-0.1) % Eos # (Auto) 0.06 (0-0.5) x10^3/uL Immature Gran # (Auto) 0.02 (0.00-0.03) x10^3u/L Absolute Lymphs (auto) 0.99 L (1.0-4.6) x10^3/uL Absolute Monos (auto) 0.53 (0.0-1.3) x10^3/uL Absolute Nucleated RBC 0.00 (0.00-0.01) x10^3u/L Lymphocytes % 15.0 L (24.0-44.0) % Monocytes % 8.0 (0.0-12.0) % Eosinophils % 0.9 (0.00-5.0) % Basophils % 0.5 (0.0-0.4) % Absolute Granulocytes 4.98 (1.4-6.9) x10^3/uL Basophils # 0.03 (0-0.4) x10^3/uL Sodium 135 L (137-145) mmol/L Potassium 5.9 H (3.5-5.1) mmol/L Chloride 113 H (98-107) mmol/L Carbon Dioxide 13 L* (22-30) mmol/L Anion Gap 14.5 (5-15) MEQ/L BUN 45 H (7-17) mg/dL Creatinine 1.75 H (0.52-1.04) mg/dL Estimated GFR 33.2 ML/MIN Glucose 105 (74-106) mg/dL POC Glucometer 122 H (74 to 106) mg/dL Hemoglobin A1c (4.5-6.0) % Lactic Acid (0.4-2.0) Calcium 9.2 (8.4-10.2) mg/dL Magnesium (1.6-2.3) mg/dL Total Bilirubin 0.60 (0.2-1.3) mg/dL AST 30 (14-36) U/L ALT 24 (0-35) U/L Alkaline Phosphatase 63 (38-126) U/L Creatine Kinase (30-135) U/L Troponin I (0.000-0.034) ng/mL Serum Total Protein 6.8 (6.3-8.2) g/dL Albumin 3.7 (3.5-5.0) g/dL Lipase (23-300) U/L Urine Color (Yellow) Urine Appearance (Clear) Urine pH (4.6-8.0) Ur Specific [place] (1.005-1.030) Urine Protein (Negative) Urine Glucose (UA) (Negative) mg/dL Urine Ketones (Negative) Urine Blood (Negative) Urine Nitrite (Negative) Urine Bilirubin (Negative) Urine Urobilinogen (0.2) mg/dL Ur Leukocyte Esterase (Negative) U Hyaline Cast (Auto) (0-2) /LPF Urine Microscopic RBC (0-5) /HPF Urine Microscopic WBC (0-5) /HPF Ur Epithelial Cells (None Seen) /HPF Urine Bacteria (None Seen) /HPF Urine Culture Reflexed (NO) Urine Opiates Level (NEGATIVE) Ur Methadone (NEGATIVE) Urine Barbiturates (NEGATIVE) Ur Phencyclidine (PCP) (NEGATIVE) Urine Amphetamine (NEGATIVE) U Benzodiazepine Level (NEGATIVE) Urine Cocaine (NEGATIVE) Urine Marijuana (THC) (NEGATIVE) Influenza Type A Ag (NEGATIVE) Influenza Type B Ag (NEGATIVE) RSV (PCR) (NEGATIVE) SARS-CoV-2 (PCR) (NEGATIVE) 08/04/23 08/04/23 08/04/23 Range/Units 02:51 03:02 04:00 WBC (4.0-10.5) x10^3/uL RBC (4.1-5.4) x10^6/uL Hgb (12.0-16.0) g/dL Hct (35-47) % MCV (78-100) fL MCH (26-32) pg MCHC (32-36) g/dL RDW (11.5-14.0) % Plt Count (150-450) x10^3/uL MPV (7.5-11.0) fL Gran % (36.0-66.0) % Immature Gran % (Auto) (0.00-0.4) % Nucleat RBC Rel Count (0.00-0.1) % Eos # (Auto) (0-0.5) x10^3/uL Immature Gran # (Auto) (0.00-0.03) x10^3u/L Absolute Lymphs (auto) (1.0-4.6) x10^3/uL Absolute Monos (auto) (0.0-1.3) x10^3/uL Absolute Nucleated RBC (0.00-0.01) x10^3u/L Lymphocytes % (24.0-44.0) % Monocytes % (0.0-12.0) % Eosinophils % (0.00-5.0) % Basophils % (0.0-0.4) % Absolute Granulocytes (1.4-6.9) x10^3/uL Basophils # (0-0.4) x10^3/uL Sodium (137-145) mmol/L Potassium (3.5-5.1) mmol/L Chloride (98-107) mmol/L Carbon Dioxide (22-30) mmol/L Anion Gap (5-15) MEQ/L BUN (7-17) mg/dL Creatinine (0.52-1.04) mg/dL Estimated GFR ML/MIN Glucose (74-106) mg/dL POC Glucometer 99 (74 to 106) mg/dL Hemoglobin A1c 5.29 (4.5-6.0) % Lactic Acid (0.4-2.0) Calcium (8.4-10.2) mg/dL Magnesium (1.6-2.3) mg/dL Total Bilirubin (0.2-1.3) mg/dL AST (14-36) U/L ALT (0-35) U/L Alkaline Phosphatase (38-126) U/L Creatine Kinase (30-135) U/L Troponin I < 0.012 (0.000-0.034) ng/mL Serum Total Protein (6.3-8.2) g/dL Albumin (3.5-5.0) g/dL Lipase (23-300) U/L Urine Color (Yellow) Urine Appearance (Clear) Urine pH (4.6-8.0) Ur Specific [place] (1.005-1.030) Urine Protein (Negative) Urine Glucose (UA) (Negative) mg/dL Urine Ketones (Negative) Urine Blood (Negative) Urine Nitrite (Negative) Urine Bilirubin (Negative) Urine Urobilinogen (0.2) mg/dL Ur Leukocyte Esterase (Negative) U Hyaline Cast (Auto) (0-2) /LPF Urine Microscopic RBC (0-5) /HPF Urine Microscopic WBC (0-5) /HPF Ur Epithelial Cells (None Seen) /HPF Urine Bacteria (None Seen) /HPF Urine Culture Reflexed (NO) Urine Opiates Level (NEGATIVE) Ur Methadone (NEGATIVE) Urine Barbiturates (NEGATIVE) Ur Phencyclidine (PCP) (NEGATIVE) Urine Amphetamine (NEGATIVE) U Benzodiazepine Level (NEGATIVE) Urine Cocaine (NEGATIVE) Urine Marijuana (THC) (NEGATIVE) Influenza Type A Ag (NEGATIVE) Influenza Type B Ag (NEGATIVE) RSV (PCR) (NEGATIVE) SARS-CoV-2 (PCR) (NEGATIVE) 08/04/23 08/04/23 08/04/23 Range/Units 07:37 11:27 14:30 WBC (4.0-10.5) x10^3/uL RBC (4.1-5.4) x10^6/uL Hgb (12.0-16.0) g/dL Hct (35-47) % MCV (78-100) fL MCH (26-32) pg MCHC (32-36) g/dL RDW (11.5-14.0) % Plt Count (150-450) x10^3/uL MPV (7.5-11.0) fL Gran % (36.0-66.0) % Immature Gran % (Auto) (0.00-0.4) % Nucleat RBC Rel Count (0.00-0.1) % Eos # (Auto) (0-0.5) x10^3/uL Immature Gran # (Auto) (0.00-0.03) x10^3u/L Absolute Lymphs (auto) (1.0-4.6) x10^3/uL Absolute Monos (auto) (0.0-1.3) x10^3/uL Absolute Nucleated RBC (0.00-0.01) x10^3u/L Lymphocytes % (24.0-44.0) % Monocytes % (0.0-12.0) % Eosinophils % (0.00-5.0) % Basophils % (0.0-0.4) % Absolute Granulocytes (1.4-6.9) x10^3/uL Basophils # (0-0.4) x10^3/uL Sodium 134 L (137-145) mmol/L Potassium 5.6 H (3.5-5.1) mmol/L Chloride 110 H (98-107) mmol/L Carbon Dioxide 18 L (22-30) mmol/L Anion Gap 11.9 (5-15) MEQ/L BUN 36 H (7-17) mg/dL Creatinine 1.40 H (0.52-1.04) mg/dL Estimated GFR 43.3 ML/MIN Glucose 178 H (74-106) mg/dL POC Glucometer 87 132 H (74 to 106) mg/dL Hemoglobin A1c (4.5-6.0) % Lactic Acid (0.4-2.0) Calcium 8.7 (8.4-10.2) mg/dL Magnesium (1.6-2.3) mg/dL Total Bilirubin 0.40 (0.2-1.3) mg/dL AST 26 (14-36) U/L ALT 20 (0-35) U/L Alkaline Phosphatase 56 (38-126) U/L Creatine Kinase (30-135) U/L Troponin I (0.000-0.034) ng/mL Serum Total Protein 6.2 L (6.3-8.2) g/dL Albumin 3.3 L (3.5-5.0) g/dL Lipase (23-300) U/L Urine Color (Yellow) Urine Appearance (Clear) Urine pH (4.6-8.0) Ur Specific [place] (1.005-1.030) Urine Protein (Negative) Urine Glucose (UA) (Negative) mg/dL Urine Ketones (Negative) Urine Blood (Negative) Urine Nitrite (Negative) Urine Bilirubin (Negative) Urine Urobilinogen (0.2) mg/dL Ur Leukocyte Esterase (Negative) U Hyaline Cast (Auto) (0-2) /LPF Urine Microscopic RBC (0-5) /HPF Urine Microscopic WBC (0-5) /HPF Ur Epithelial Cells (None Seen) /HPF Urine Bacteria (None Seen) /HPF Urine Culture Reflexed (NO) Urine Opiates Level (NEGATIVE) Ur Methadone (NEGATIVE) Urine Barbiturates (NEGATIVE) Ur Phencyclidine (PCP) (NEGATIVE) Urine Amphetamine (NEGATIVE) U Benzodiazepine Level (NEGATIVE) Urine Cocaine (NEGATIVE) Urine Marijuana (THC) (NEGATIVE) Influenza Type A Ag (NEGATIVE) Influenza Type B Ag (NEGATIVE) RSV (PCR) (NEGATIVE) SARS-CoV-2 (PCR) (NEGATIVE) 08/04/23 Range/Units 16:02 WBC (4.0-10.5) x10^3/uL RBC (4.1-5.4) x10^6/uL Hgb (12.0-16.0) g/dL Hct (35-47) % MCV (78-100) fL MCH (26-32) pg MCHC (32-36) g/dL RDW (11.5-14.0) % Plt Count (150-450) x10^3/uL MPV (7.5-11.0) fL Gran % (36.0-66.0) % Immature Gran % (Auto) (0.00-0.4) % Nucleat RBC Rel Count (0.00-0.1) % Eos # (Auto) (0-0.5) x10^3/uL Immature Gran # (Auto) (0.00-0.03) x10^3u/L Absolute Lymphs (auto) (1.0-4.6) x10^3/uL Absolute Monos (auto) (0.0-1.3) x10^3/uL Absolute Nucleated RBC (0.00-0.01) x10^3u/L Lymphocytes % (24.0-44.0) % Monocytes % (0.0-12.0) % Eosinophils % (0.00-5.0) % Basophils % (0.0-0.4) % Absolute Granulocytes (1.4-6.9) x10^3/uL Basophils # (0-0.4) x10^3/uL Sodium (137-145) mmol/L Potassium (3.5-5.1) mmol/L Chloride (98-107) mmol/L Carbon Dioxide (22-30) mmol/L Anion Gap (5-15) MEQ/L BUN (7-17) mg/dL Creatinine (0.52-1.04) mg/dL Estimated GFR ML/MIN Glucose (74-106) mg/dL POC Glucometer 157 H (74 to 106) mg/dL Hemoglobin A1c (4.5-6.0) % Lactic Acid (0.4-2.0) Calcium (8.4-10.2) mg/dL Magnesium (1.6-2.3) mg/dL Total Bilirubin (0.2-1.3) mg/dL AST (14-36) U/L ALT (0-35) U/L Alkaline Phosphatase (38-126) U/L Creatine Kinase (30-135) U/L Troponin I (0.000-0.034) ng/mL Serum Total Protein (6.3-8.2) g/dL Albumin (3.5-5.0) g/dL Lipase (23-300) U/L Urine Color (Yellow) Urine Appearance (Clear) Urine pH (4.6-8.0) Ur Specific [place] (1.005-1.030) Urine Protein (Negative) Urine Glucose (UA) (Negative) mg/dL Urine Ketones (Negative) Urine Blood (Negative) Urine Nitrite (Negative) Urine Bilirubin (Negative) Urine Urobilinogen (0.2) mg/dL Ur Leukocyte Esterase (Negative) U Hyaline Cast (Auto) (0-2) /LPF Urine Microscopic RBC (0-5) /HPF Urine Microscopic WBC (0-5) /HPF Ur Epithelial Cells (None Seen) /HPF Urine Bacteria (None Seen) /HPF Urine Culture Reflexed (NO) Urine Opiates Level (NEGATIVE) Ur Methadone (NEGATIVE) Urine Barbiturates (NEGATIVE) Ur Phencyclidine (PCP) (NEGATIVE) Urine Amphetamine (NEGATIVE) U Benzodiazepine Level (NEGATIVE) Urine Cocaine (NEGATIVE) Urine Marijuana (THC) (NEGATIVE) Influenza Type A Ag (NEGATIVE) Influenza Type B Ag (NEGATIVE) RSV (PCR) (NEGATIVE) SARS-CoV-2 (PCR) (NEGATIVE) Radiology Exams: Radiology Procedures Category Date Time Status PATRICIA/SEG PRESSURE UNILAT [US] Urgent Exams 08/04/23 13:10 Completed ARTERIAL UNILAT/LTD LOWER EXT [US] Urgent Exams 08/04/23 13:08 Completed CHEST 1 VIEW (PORTABLE) Stat Exams 08/03/23 18:33 Completed FOOT (MINIMUM 3 VIEWS) Urgent Exams 08/04/23 13:14 Completed HEAD WITHOUT CONTRAST [CT] Stat Exams 08/03/23 18:34 Completed Assessment/Plan (1) Acute kidney injury Current Visit: Yes Status: Acute Assessment & Plan: Likely from prerenal azotemia in setting of REBECCA with creatinine initially 2.1 (baseline 0.8) 1. IVFs 2. Hold REBECCA/SGLT2 3. Encourage PO intake 4. Follow I/Os 5. Watch electrolytes, creatinine closely 08/04 - Labs improving Code(s): N17.9 - ACUTE KIDNEY FAILURE, UNSPECIFIED (2) High anion gap metabolic acidosis Current Visit: Yes Status: Acute Assessment & Plan: Likely from LOLITA and ketoacidosis versus lactic acidosis from Metformin 1. IVFs with bicarb 2. ABG prn 3. Trend bicarb level 08/04 - CO2 18 - Continue bicarb gtt Code(s): E87.29 - OTHER ACIDOSIS (3) Hyperkalemia Current Visit: Yes Status: Acute Assessment & Plan: - 5.9 this Am then repeat 5.6 after Veltassa gave - repeat veltassa daily recheck K+ in am Code(s): E87.5 - HYPERKALEMIA (4) Syncope Current Visit: Yes Status: Acute Assessment & Plan: - 2/2 LOLITA, metabolic acidodid, hyperkalemia- see above plans Code(s): R55 - SYNCOPE AND COLLAPSE (5) Diabetes type 2, controlled Current Visit: No Status: Chronic Code(s): E11.9 - TYPE 2 DIABETES MELLITUS WITHOUT COMPLICATIONS (6) UTI (urinary tract infection) Current Visit: Yes Status: Acute Assessment & Plan: - ceftriaxone - UC pending Code(s): N39.0 - URINARY TRACT INFECTION, SITE NOT SPECIFIED (7) Hypertension Current Visit: No Status: Chronic Qualifiers: Assessment & Plan: On Metformin/Jardiance 1. Will hold meds given LOLITA 2. FSBS qAC/HS 3. Insulin sliding scale VTE: heparin Code status: Full Next of kin: Sowmya Gomez [phone] D/c plan: 2-3 days Code(s): I10 - ESSENTIAL (PRIMARY) HYPERTENSION
[2023-08-05] MEDS ORDERED: SODIUM BICARBONATE 50 MEQ/50 ML ABBOJECT IV ONE (05:44)
[2023-08-05] MEDS ORDERED: Dextrose 5%/Water IV Soln. 1000 ML 1,000 ML IV ONE (05:44)
[2023-08-05 05:45] LABS: Hematocrit 32.1 % (35-47); Hemoglobin 10.9 g/dL (12.0-16.0); Mean Cell Volume 90.4 fL (78-100); Mean Corpuscular Hemoglobin 30.7 pg (26-32); Mean Platelet Volume 9.3 fL (7.5-11.0); Platelet Count 140 x10^3/uL (150-450); Red Blood Count 3.55 x10^6/uL (4.1-5.4); White Blood Count 4.3 x10^3/uL (4.0-10.5)
[2023-08-05 05:52] LABS: ALBUMIN 3.3 g/dL (3.5-5.0); ANION GAP 9.2 MEQ/L (5-15); BILIRUBIN,TOTAL 0.6 mg/dL (0.2-1.3); Calcium 8.6 mg/dL (8.4-10.2); Creatinine 1 1.11 mg/dL (0.52-1.04); EST GLOMERULAR FILTRATION RATE 57.3 ML/MIN; Potassium 4.3 mmol/L (3.5-5.1); Total Protein 6.1 g/dL (6.3-8.2)
[2023-08-05] MEDS ORDERED: Sodium Bicarbonate 50 MEQ/50 ML VIAL ONE (06:08)
--- NOTE | 2023-08-05 11:50 | XRAY ---
Indication: Great toe ulceration. Two-dimensional sonogram and color Doppler imaging major arteries right leg performed. Comparison: None Visualized common femoral and proximal superficial femoral arteries are widely patent. Mild scattered arteriosclerotic calcifications in the deep femoral artery. Minimal scattered arteriosclerotic disease in distal superficial femoral, popliteal, posterior tibial, and dorsal pedal arteries. Arterial waveforms are monophasic in posterior tibial and dorsal pedal arteries. Remaining right leg arterial waveforms are multiphasic. Impression: Minimal/mild scattered arteriosclerotic disease as detailed. Negative for critical stenosis/obstruction. ADDENDUM Left leg arterial sonogram was also performed. Widely patent common femoral and deep femoral arteries. Minimal arteriosclerotic disease in mid superficial femoral and scattered in popliteal/dorsal pedal arteries without critical stenosis or obstruction. Moderate disease in remaining posterior tibial artery. Arterial waveforms are monophasic in posterior tibial artery. Remaining left leg arterial waveforms are multiphasic.
[2023-08-05 11:54] VITALS: BP 154/78; PULSE 92; RESP 22; TEMP 97.5; O2SAT 94
--- NOTE | 2023-08-05 12:03 | XRAY ---
Indication: Left great toe ulceration. Left ankle brachial index exam performed. Comparison: None Left arm brachial pressure could not be used due to indwelling IV. Right arm brachial pressure is 144. Left ankle pressure is 128. Ankle brachial index is 0.89 favoring mild ischemic disease.
--- NOTE | 2023-08-05 13:48 | PCM.DS ---
Discharge Summary Date of Admission: 08/04/23 01:25 Date of Discharge: 08/05/23 Admitting Physician: SB RICH MD Consults: Consults on Case 08/04/23 02:20 Case Management SDOH DC Needs Assessment ROUTINE 08/04/23 09:46 Consult Podiatry ROUTINE Primary Care Provider: ANTHONY WALTON Allergies Allergies No Known Drug Allergies Allergy (Verified 08/04/23 02:23) Hospital Summary - Hospital Course Hospital Course: 08/04/23 Ms. Llanes is a 57 year old female with a past medical history significant for hypertension, diabetes and mild kidney dysfunction with a baseline creatinine ~ 0.8 who presents to the ER after having fallen asleep on 08/01 around 6 p.m. and then waking up the next day at 4 p.m. but on the floor of her bathroom. She has no recollection of what transpired. She has had some issues with nausea and vomiting recently. Upon arrival, she was found to have marked alterations of her kidney function with a creatinine of 2.1, bicarb 13. She denies any dysuria, hematuria or foamy urine. No NSAIDs or contrast dye, but has been taking Jardiance. She is c/o BL hip pain and a heating pad was provided. LOLITA is improving today. CO2 continues to be low at 18 on bicarb gtt, it has improved since admission. Pt states she overall does not feel well and has felt like this for some time now. She denies CP, SOB, abd. pain, N/V/D. 08/05/23 Pt resting in bed. She is feeling much better and labs have improved. Kidney function is at baseline today. Will have pt f/u with nephrology Op. Podiatry saw wound on left foot big toe yesterday. He recommended to keep area clean, dry and covered and to f/u Weds for appointment. Will d/c with antibiotics for UTI, UC results are pending. She denies any further concerns at this time. - Vitals & Intake/Output Vital Signs: Vital Signs Temperature 97.5 F 08/05/23 11:53 Pulse Rate 92 H 08/05/23 11:53 Respiratory Rate 22 08/05/23 11:53 Blood Pressure 154/78 08/05/23 11:53 O2 Sat by Pulse Oximetry 94 L 08/05/23 11:53 Intake & Output: Intake & Output 08/03/23 08/04/23 08/05/23 08/06/23 11:59 11:59 11:59 11:59 Intake Total 0 3713 Output Total 800 1250 Balance -800 2463 Weight 79.3 kg - Lab Result Diagrams: 08/05/23 04:09 08/05/23 04:09 Lab Results-Last 24 Hrs: Lab Results-Last 24 Hours 08/04/23 08/04/23 08/04/23 Range/Units 14:30 16:02 22:31 WBC (4.0-10.5) x10^3/uL RBC (4.1-5.4) x10^6/uL Hgb (12.0-16.0) g/dL Hct (35-47) % MCV (78-100) fL MCH (26-32) pg MCHC (32-36) g/dL RDW (11.5-14.0) % Plt Count (150-450) x10^3/uL MPV (7.5-11.0) fL Sodium 134 L (137-145) mmol/L Potassium 5.6 H (3.5-5.1) mmol/L Chloride 110 H (98-107) mmol/L Carbon Dioxide 18 L (22-30) mmol/L Anion Gap 11.9 (5-15) MEQ/L BUN 36 H (7-17) mg/dL Creatinine 1.40 H (0.52-1.04) mg/dL Estimated GFR 43.3 ML/MIN Glucose 178 H (74-106) mg/dL POC Glucometer 157 H 122 H (74 to 106) mg/dL Calcium 8.7 (8.4-10.2) mg/dL Total Bilirubin 0.40 (0.2-1.3) mg/dL AST 26 (14-36) U/L ALT 20 (0-35) U/L Alkaline Phosphatase 56 (38-126) U/L Serum Total Protein 6.2 L (6.3-8.2) g/dL Albumin 3.3 L (3.5-5.0) g/dL 08/05/23 08/05/23 08/05/23 Range/Units 04:09 04:09 08:19 WBC 4.3 (4.0-10.5) x10^3/uL RBC 3.55 L (4.1-5.4) x10^6/uL Hgb 10.9 L (12.0-16.0) g/dL Hct 32.1 L (35-47) % MCV 90.4 (78-100) fL MCH 30.7 (26-32) pg MCHC 34.0 (32-36) g/dL RDW 12.0 (11.5-14.0) % Plt Count 140 L (150-450) x10^3/uL MPV 9.3 (7.5-11.0) fL Sodium 133 L (137-145) mmol/L Potassium 4.3 D (3.5-5.1) mmol/L Chloride 105 (98-107) mmol/L Carbon Dioxide 23 (22-30) mmol/L Anion Gap 9.2 (5-15) MEQ/L BUN 27 H (7-17) mg/dL Creatinine 1.11 H (0.52-1.04) mg/dL Estimated GFR 57.3 ML/MIN Glucose 124 H (74-106) mg/dL POC Glucometer 120 H (74 to 106) mg/dL Calcium 8.6 (8.4-10.2) mg/dL Total Bilirubin 0.60 (0.2-1.3) mg/dL AST 26 (14-36) U/L ALT 19 (0-35) U/L Alkaline Phosphatase 63 (38-126) U/L Serum Total Protein 6.1 L (6.3-8.2) g/dL Albumin 3.3 L (3.5-5.0) g/dL 08/05/23 Range/Units 11:47 WBC (4.0-10.5) x10^3/uL RBC (4.1-5.4) x10^6/uL Hgb (12.0-16.0) g/dL Hct (35-47) % MCV (78-100) fL MCH (26-32) pg MCHC (32-36) g/dL RDW (11.5-14.0) % Plt Count (150-450) x10^3/uL MPV (7.5-11.0) fL Sodium (137-145) mmol/L Potassium (3.5-5.1) mmol/L Chloride (98-107) mmol/L Carbon Dioxide (22-30) mmol/L Anion Gap (5-15) MEQ/L BUN (7-17) mg/dL Creatinine (0.52-1.04) mg/dL Estimated GFR ML/MIN Glucose (74-106) mg/dL POC Glucometer 195 H (74 to 106) mg/dL Calcium (8.4-10.2) mg/dL Total Bilirubin (0.2-1.3) mg/dL AST (14-36) U/L ALT (0-35) U/L Alkaline Phosphatase (38-126) U/L Serum Total Protein (6.3-8.2) g/dL Albumin (3.5-5.0) g/dL Micro Results-Entire Visit: Microbiology 08/03/23 21:19 Urine Culture - Preliminary Urine, Void GRAM POSITIVE ID AND SENSITIVITY PENDING 08/03/23 18:52 Blood Culture - Preliminary Blood 08/03/23 18:52 Blood Culture - Preliminary Blood Accuchecks Date 08/05/23 Date 08/04/23 Time 16:30 - Radiology Exams Ordered Rad Exams-Entire Visit: Radiology Procedures Category Date Time Status PATRICIA/LIMB PRESSURES BILATERAL [US] Urgent Exams 08/04/23 13:10 Completed ARTERIAL BILAT LOWER EXTREMITY [US] Urgent Exams 08/04/23 13:08 Completed CHEST 1 VIEW (PORTABLE) Stat Exams 08/03/23 18:33 Completed FOOT (MINIMUM 3 VIEWS) Urgent Exams 08/04/23 13:14 Completed HEAD WITHOUT CONTRAST [CT] Stat Exams 08/03/23 18:34 Completed Discharge Exam General Appearance: no apparent distress, alert Neurologic Exam: alert, oriented x 3, cooperative, normal mood/affect, nml cerebellar function, sensation nml, No motor deficits Eye Exam: PERRL, EOMI, eyes nml inspection Ears, Nose, Throat Exam: normal ENT inspection, pharynx normal, moist mucous membranes Neck Exam: normal inspection, non-tender, supple, full range of motion Respiratory Exam: normal breath sounds, lungs clear, No respiratory distress Cardiovascular Exam: regular rate/rhythm, normal heart sounds Gastrointestinal/Abdomen Exam: soft, No tenderness, No mass Pelvic Exam: deferred Rectal Exam: deferred Back Exam: normal inspection, normal range of motion, No CVA tenderness, No vertebral tenderness Extremity Exam: normal inspection, normal range of motion Skin Exam: normal color, warm, dry Wound Assessment: Skin/Wound Assessment Wound/Incision Assessment Start: 08/04/23 10:00 Text: Status: Active Freq: Q6H Protocol: Document 08/05/23 10:00 VEENAVALENTIN (Rec: 08/05/23 10:48 RDUHNE [id number]) Wound/Incision Assessment Left Toe Wound Assessment Shift Assessment Wound Stage Non Pressure Wound Dressing Status Dry & Intact Drainage Amount None Length (cm) (cm) 2 Width (cm) (cm) 2 Primary Dressing Bandaid Comment wound on L great toe, picture in chart, covered with band- aid and iodine per Dr. Slater; remains true Wound Photo Photo Taken Yes Date: 08/04/23 Time: 09:05 Final Diagnosis/Problem List - Final Discharge Diagnosis/Problem (1) Acute kidney injury Current Visit: Yes Status: Acute Assessment & Plan: Likely from prerenal azotemia in setting of REBECCA with creatinine initially 2.1 (baseline 0.8) 1. IVFs 2. Hold REBECCA/SGLT2 3. Encourage PO intake 4. Follow I/Os 5. Watch electrolytes, creatinine closely 08/04 - Labs improving 08/05 - labs at baseline after reviewing old records - Nephrology f/u appointment made Code(s): N17.9 - ACUTE KIDNEY FAILURE, UNSPECIFIED (2) High anion gap metabolic acidosis Current Visit: Yes Status: Acute Assessment & Plan: Likely from LOLITA and ketoacidosis versus lactic acidosis from Metformin 1. IVFs with bicarb 2. ABG prn 3. Trend bicarb level 08/04 - CO2 18 - Continue bicarb gtt / - Co2 23- resolved - Bicarb gtt stopped Code(s): E87.29 - OTHER ACIDOSIS (3) Hyperkalemia Current Visit: Yes Status: Resolved Assessment & Plan: - K+ 4.3 resolved Code(s): E87.5 - HYPERKALEMIA (4) Syncope Current Visit: Yes Status: Resolved Assessment & Plan: - 2/2 LOLITA, metabolic acidosis, hyperkalemia- see above plans - resolved Code(s): R55 - SYNCOPE AND COLLAPSE (5) Diabetes type 2, controlled Current Visit: No Status: Chronic Assessment & Plan: - A1c 5.29 - Hold REBECCA/SGLT2 d/t LOLITA - Humalog s/s, accuchecks ac/hs Code(s): E11.9 - TYPE 2 DIABETES MELLITUS WITHOUT COMPLICATIONS (6) UTI (urinary tract infection) Current Visit: Yes Status: Acute Assessment & Plan: - Ceftriaxone started - UC gram + ID- sensitivity pending - BC X2 negative Code(s): N39.0 - URINARY TRACT INFECTION, SITE NOT SPECIFIED (7) Hypertension Current Visit: No Status: Chronic Assessment & Plan: - BP stable Code(s): I10 - ESSENTIAL (PRIMARY) HYPERTENSION (8) Open wound of left foot excluding one or more toes Current Visit: Yes Status: Acute Assessment & Plan: - left foot big toe wound - podiatry consulted - per podiatry keep wound clean, dry, covered - F/u made for weds with podiatry Code(s): S91.302A - UNSPECIFIED OPEN WOUND, LEFT FOOT, INITIAL ENCOUNTER - Discharge Discharge Date: 08/05/23 Disposition: Home, Self-Care Condition: Stable Prescriptions: New Cefuroxime Axetil 500 mg [Ceftin 500 mg] 500 mg PO BID 5 Days #10 tablet Continue Glimepiride 2 mg [Amaryl 2 MG] 1 tab PO DAILY Ezetimibe 10 mg [Zetia 10 MG] 1 tab PO DAILY Empagliflozin [Jardiance] 25 mg PO DAILY Lisinopril 10 mg [Zestril 10 MG] 1 tab PO DAILY Cholestyramine/Aspartame [Prevalite Powder] 3 scoop PO DAILY diphenhydrAMINE HCL [Sleep Aid] 25 mg PO HS Discontinued Metformin HCl 500 mg [Glucophage 500 MG] 2 tab PO BID Additional Instructions: KEEP TOES CLEAN AND DRY, COVER WHEN IN SHOES Follow up with: DANNA SHARIF DPM [ACTIVE STAFF] - 08/10/23 8:30 am BLAISE CHOUDHARY [CONSULTING PHYSICIAN] - 08/09/23 12:40 pm ([place] [facility]) ANTHONY WALTON MD [Primary Care Provider] - 08/12/23 11:00 am
== END 2023-08-05 15:59 | disposition home or self-care (01) ==
LOC: ED 17:41 → ICU 08-04 01:25
PROVIDERS: ADMIT Internal Medicine Nephrology; ATTEND Internal Medicine Nephrology
DX: N17.9 Acute kidney failure, unspecified (principal); E87.29 Other acidosis; E87.5 Hyperkalemia; R55 Syncope and collapse; E11.9 Type 2 diabetes mellitus without complications; N39.0 Urinary tract infection, site not specified; I10 Essential (primary) hypertension; S91.302A Unspecified open wound, left foot, initial encounter; Z79.899 Other long term (current) drug therapy; Z20.828 Contact with and (suspected) exposure to other viral communicable diseases; Z86.16 Personal history of COVID-19; Z59.82 Transportation insecurity; Z59.41 Food insecurity; Z59.12 Inadequate housing utilities
CPT/HCPCS: 0241U; 36000; 36415; 70450; 71045; 73630; 80053; 80307; 81001; 82550; 82947; 83036; 83605; 83690; 83735; 84484; 85025; 85027; 87040; 87077; 87086; 87186; 93005; 93041; 93268; 93922; 93925; 93926; 96360; 96361; 96374; 99285; J0696; J1644; J1817; J2405; Q3014; A9270-GY; G0378